=== PATIENT | male | born 1950 | race Caucasian/White ===

== ENCOUNTER 2018-02-15 14:40 | Inpatient (IN) | payer MEDICARE, MEDICAID ==
[~2018-02-15] VITALS: Ht 167.6 cm; Wt 107.0 kg
[~2018-02-15 14:40] MED LIST: HYDR25TA PO; LISI-661 PO; QUET100T PO; QUET200T PO
[2018-02-15 14:59] LABS: GLUCOSE,POINT OF CARE 145 MG/DL (70-110)
[2018-02-15 15:09] LABS: BASOPHILS % (AUTO) 0.5 % (0.0-2.0); EOSINOPHILS % (AUTO) 1.1 % (1.0-6.0); HEMATOCRIT 44.2 % (41-53); HEMOGLOBIN 15.1 g/dL (13.5-17.5); LYMPHOCYTES # (AUTO) 3.1 K/uL (1.0-4.8); LYMPHOCYTES % (AUTO) 53.4 % (22.0-44.0); MEAN CORPUSCULAR HEMOGLOBIN 28.2 pg (26.0-34.0); MEAN CORPUSCULAR HGB CONC 34.1 G/dL (31.0-37.0); MEAN CORPUSCULAR VOLUME 83 fL (80-100); MONOCYTES # (AUTO) 0.5 K/uL (0.1-1.0); MONOCYTES % (AUTO) 8.2 % (2.0-9.0); NEUTROPHILS # (AUTO) 2.1 K/uL (1.8-7.7); NEUTROPHILS % (AUTO) 36.8 % (40.0-70.0); PLATELET COUNT (AUTO) 228 K/uL (150-450); RED BLOOD CELL COUNT(AUTO) 5.35 MIL/uL (4.50-5.90); RED CELL DISTRIBUTION WIDTH 14.5 % (11.5-14.5)
[2018-02-15 15:21] LABS: ANION GAP 11 mmol/L (8-16); CALCIUM, TOTAL 7.9 mg/dL (8.8-10.5); CARBON DIOXIDE 27 mmol/L (22-29); CHLORIDE 102 mmol/L (98-107); CREATININE 1.04 mg/dL (0.60-1.30); GLOMERULAR FILTR. RATE CALC > 60 mL/min (>60); GLUCOSE,RANDOM 152 mg/dL (70-110); POTASSIUM 3.9 mmol/L (3.5-5.1); SODIUM SERUM 140 mmol/L (136-145); UREA NITROGEN, BLOOD 11 mg/dL (7-18)
[2018-02-15 15:28] LABS: ALANINE AMINOTRANSFERASE 53 U/L (12-78); ALBUMIN 3.7 g/dL (3.4-5.0); ALKALINE PHOSPHATASE 107 U/L (46-116); ASPARTATE AMINOTRANSFERASE 52 U/L (15-37); BILIRUBIN,TOTAL 0.3 mg/dL (0.1-1.0); TOTAL PROTEIN, SERUM 7.4 g/dL (6.4-8.2)
[2018-02-15 17:26] LABS: AMPHET/METH SCREEN,URINE NEGATIVE (NEGATIVE); BARBITURATE SCREEN, URINE NEGATIVE (NEGATIVE); BENZODIAZEPINES SCREEN,URINE NEGATIVE (NEGATIVE); CANNABINOID SCREEN,URINE NEGATIVE (NEGATIVE); COCAINE SCREEN,URINE NEGATIVE (NEGATIVE); METHADONE SCREEN, URINE NEGATIVE (NEGATIVE); OPIATE SCREEN,URINE NEGATIVE (NEGATIVE)
[2018-02-15 17:27] LABS: PHENCYCLIDINE SCREEN,URINE NEGATIVE (NEGATIVE)
[2018-02-15] MEDS ORDERED: LORazepam 2 MG TABLET PO PRN (18:30)
[2018-02-15] MEDS ORDERED: CYANOCOBALAMIN 1,000 MCG/ML VIAL IM ONE (18:30)
[2018-02-15] MEDS ORDERED: ZOLPIDEM TARTRATE 5 MG TABLET PO PRN (18:30)
[2018-02-15] MEDS ORDERED: LOPERAMIDE HCL 2 MG CAPSULE PO PRN (18:30)
[2018-02-15] MEDS ORDERED: HydrOXYzine PAMOATE 50 MG CAPSULE PO PRN (18:30)
[2018-02-15] MEDS ORDERED: GuaiFENesin/D-METHORPHAN [SUGAR-FREE] 200-20MG/10 ML SYRUP UDCUP PO PRN (18:30)
[2018-02-15] MEDS ORDERED: QUEtiapine FUMARATE 100 MG TABLET PO PRN (18:30)
[2018-02-15] MEDS ORDERED: DIAZEPAM 10 MG TABLET PO PRN (18:30)
[2018-02-15 21:00] VITALS: BP 153/89
[2018-02-15] MEDS: QUEtiapine FUMARATE 200 MG TABLET PO SCH (21:19)
[2018-02-15] MEDS: THIAMINE HCL 100 MG TABLET PO SCH (21:19)
[2018-02-15 22:00] VITALS: BP 153/89
[2018-02-15] MEDS ORDERED: -PHARMACY VACCINE NOTE- MISC ONE (22:00)
[2018-02-15] MEDS ORDERED: PNEUMOCOCCAL VACCINE POLYVALENT 0.5 ML VIAL [PPSV23] IM ONE (22:00)
[2018-02-15 23:08] VITALS: BP 149/71
[2018-02-16] VITALS (16 sets, daily range): BP systolic 139–183; BP diastolic 52–96
[2018-02-16] MEDS: CloNIDine HCL 0.1 MG TABLET PO PRN ×3 (00:26→18:04)
[2018-02-16] MEDS ORDERED: DIAZEPAM 10 MG TABLET PO PRN (07:00)
[2018-02-16] MEDS ORDERED: ACETAMINOPHEN 325 MG TABLET PO PRN ×2 (07:45→10:15)
[2018-02-16] MEDS ORDERED: IBUPROFEN 600 MG TABLET PO PRN (07:45)
[2018-02-16] MEDS: THIAMINE HCL 100 MG TABLET PO SCH ×2 (08:44→16:38)
[2018-02-16 08:58] LABS: CHOL/HDL RATIO 4.1 (4.2-7.3); CHOLESTEROL 213 mg/dL (131-200); FREE T4 (FREE THYROXINE) 0.59 ng/dL (0.76-1.46); HDL CHOLESTEROL 52 mg/dL (40-60); THYROID STIMULATING HORMONE 4.05 uIU/mL (0.36-3.74); TRIGLYCERIDES 542 mg/dL (15-150)
[2018-02-16] MEDS ORDERED: FOLIC ACID 1 MG TABLET PO SCH (09:00)
[2018-02-16] MEDS ORDERED: DIAZEPAM 10 MG TABLET PO SCH (09:00)
[2018-02-16] MEDS ORDERED: MULTIVITAMINS WITH MINERALS, THERAPEUTIC TABLET PO SCH (09:00)
[2018-02-16] MEDS ORDERED: LISINOPRIL 10 MG TABLET PO SCH (09:45)
[2018-02-16] MEDS ORDERED: GuaiFENesin/D-METHORPHAN [SUGAR-FREE] 200-20MG/10 ML SYRUP UDCUP PO PRN (10:15)
[2018-02-16] MEDS ORDERED: HydrOXYzine PAMOATE 50 MG CAPSULE PO PRN (10:15)
[2018-02-16] MEDS ORDERED: TUBERCULIN, PURIFIED PROTEIN DERIVATIVE 5 TU/0.1 ML SYG ID ONE (10:15)
[2018-02-16] MEDS ORDERED: MAG HYDROX/AL HYDROX/SIMETH ES 30 ML SUSPENSION UDCUP PO PRN (10:15)
[2018-02-16] MEDS ORDERED: MAGNESIUM HYDROXIDE SUSPENSION 30 ML UDCUP PO PRN (10:15)
[2018-02-16] MEDS ORDERED: LORazepam 2 MG TABLET PO PRN (10:15)
[2018-02-16] MEDS ORDERED: PROMETHAZINE HCL 25 MG TABLET PO PRN (10:15)
[2018-02-16] MEDS ORDERED: LOPERAMIDE HCL 2 MG CAPSULE PO PRN (10:15)
[2018-02-16] MEDS: HYDROCHLOROTHIAZIDE 25 MG TABLET PO SCH (14:08)
[2018-02-16] MEDS ORDERED: AmLODIPine BESYLATE 5 MG TABLET PO SCH (19:45)
[2018-02-16] MEDS: ATORVASTATIN CALCIUM 40 MG TABLET PO SCH (20:37)
[2018-02-16] MEDS: QUEtiapine FUMARATE 200 MG TABLET PO SCH (20:37)
[2018-02-16] MEDS ORDERED: CYANOCOBALAMIN 1,000 MCG/ML VIAL IM ONE (21:00)
[2018-02-16] MEDS ORDERED: CloNIDine HCL 0.1 MG TABLET PO PRN (22:30)
[2018-02-17 00:11] VITALS: BP 161/93
[2018-02-17 01:23] VITALS: BP 138/79
[2018-02-17] MEDS ORDERED: LORazepam 2 MG TABLET PO PRN (07:00)
[2018-02-17] MEDS: AmLODIPine BESYLATE 10 MG TABLET PO SCH (08:18)
[2018-02-17] MEDS: THIAMINE HCL 100 MG TABLET PO SCH ×2 (08:18→16:37)
[2018-02-17] MEDS: NALTREXONE HCL 50 MG TABLET PO SCH (08:18)
[2018-02-17] MEDS: HYDROCHLOROTHIAZIDE 25 MG TABLET PO SCH (08:18)
[2018-02-17] MEDS: FOLIC ACID 1 MG TABLET PO SCH (08:18)
[2018-02-17] MEDS: MULTIVITAMINS WITH MINERALS, THERAPEUTIC TABLET PO SCH (08:19)
[2018-02-17] MEDS: LORazepam 2 MG TABLET PO SCH ×4 (08:19→20:40)
[2018-02-17] MEDS: LISINOPRIL 20 MG TABLET PO SCH (08:19)
[2018-02-17 08:38] VITALS: BP 146/79
[2018-02-17] MEDS ORDERED: FOLIC ACID 1 MG TABLET PO SCH (09:00)
[2018-02-17] MEDS: DENTURE ADHESIVE 68 GM CREAM DT PRN (09:58)
[2018-02-17 16:07] VITALS: BP 148/67
[2018-02-17 17:11] VITALS: BP 148/67
[2018-02-17] MEDS: QUEtiapine FUMARATE 300 MG TABLET PO SCH (20:39)
[2018-02-17] MEDS: ATORVASTATIN CALCIUM 40 MG TABLET PO SCH (20:40)
[2018-02-18 00:35] VITALS: BP 124/79
[2018-02-18] MEDS ORDERED: DIAZEPAM 5 MG TABLET PO PRN (07:00)
[2018-02-18] MEDS: HYDROCHLOROTHIAZIDE 25 MG TABLET PO SCH (08:21)
[2018-02-18] MEDS: THIAMINE HCL 100 MG TABLET PO SCH ×2 (08:21→16:43)
[2018-02-18] MEDS: FOLIC ACID 1 MG TABLET PO SCH (08:21)
[2018-02-18] MEDS: AmLODIPine BESYLATE 10 MG TABLET PO SCH (08:21)
[2018-02-18] MEDS: LISINOPRIL 20 MG TABLET PO SCH (08:21)
[2018-02-18] MEDS: LORazepam 2 MG TABLET PO SCH ×4 (08:21→20:39)
[2018-02-18] MEDS: MULTIVITAMINS WITH MINERALS, THERAPEUTIC TABLET PO SCH (08:21)
[2018-02-18] MEDS: NALTREXONE HCL 50 MG TABLET PO SCH (08:21)
[2018-02-18] MEDS: DENTURE ADHESIVE 68 GM CREAM DT PRN (08:25)
[2018-02-18 08:40] VITALS: BP 131/76
[2018-02-18] MEDS ORDERED: DIAZEPAM 5 MG TABLET PO SCH (09:00)
[2018-02-18] MEDS ORDERED: NALT50TA PO (12:03)
[2018-02-18] MEDS ORDERED: QUET300T18 PO (12:03)
[2018-02-18 16:28] VITALS: BP 118/64
[2018-02-18] MEDS: ATORVASTATIN CALCIUM 40 MG TABLET PO SCH (20:39)
[2018-02-18] MEDS: QUEtiapine FUMARATE 300 MG TABLET PO SCH (20:40)
[2018-02-18] MEDS ORDERED: AMLO-512 PO (21:30)
[2018-02-18] MEDS ORDERED: QUET50TA PO (21:31)
[2018-02-18] MEDS ORDERED: ATOR40TA28 PO (21:31)
[2018-02-19 06:10] VITALS: BP 140/71
[2018-02-19] MEDS ORDERED: LORazepam 1 MG TABLET PO PRN (07:00)
[2018-02-19] MEDS ORDERED: DIAZEPAM 5 MG TABLET PO PRN (07:00)
[2018-02-19 08:15] VITALS: BP 140/83
[2018-02-19] MEDS: FOLIC ACID 1 MG TABLET PO SCH (08:27)
[2018-02-19] MEDS: MULTIVITAMINS WITH MINERALS, THERAPEUTIC TABLET PO SCH (08:27)
[2018-02-19] MEDS: LISINOPRIL 20 MG TABLET PO SCH (08:27)
[2018-02-19] MEDS: NALTREXONE HCL 50 MG TABLET PO SCH (08:28)
[2018-02-19] MEDS: THIAMINE HCL 100 MG TABLET PO SCH (08:28)
[2018-02-19] MEDS: HYDROCHLOROTHIAZIDE 25 MG TABLET PO SCH (08:28)
[2018-02-19] MEDS: AmLODIPine BESYLATE 10 MG TABLET PO SCH (08:28)
[2018-02-19 08:56] LABS: HEMOGLOBIN A1C 6.4 % (4.5-6.2)
[2018-02-19] MEDS ORDERED: LORazepam 1 MG TABLET PO SCH (09:00)
[2018-02-19 09:35] LABS: FOLATE SERUM 17.8 ng/mL (5.4-)
[2018-02-19 09:47] LABS: CREATINE KINASE MB 2.2 ng/mL (0-5); CREATINE KINASE, TOTAL 94 U/L (39-308); FREE T4 (FREE THYROXINE) 0.73 ng/dL (0.76-1.46); THYROID STIMULATING HORMONE 5.92 uIU/mL (0.36-3.74)
[2018-02-19] MEDS ORDERED: NALT50TA6 PO (11:40)
[2018-02-20] MEDS ORDERED: LORazepam 1 MG TABLET PO PRN (07:00)
== END 2018-02-19 13:25 | disposition home or self-care (01) | DRG 885 ==
LOC: EMS 14:41 → B2X 19:30
PROVIDERS: ADMIT Psychiatry & Neurology Psychiatry; ATTEND Psychiatry & Neurology Psychiatry
PROC: 3E0234Z Introduction of Serum, Toxoid and Vaccine into Muscle, Percutaneous Approach (ICD-10-PCS; principal; 2018-02-16)
DX: F25.9 Schizoaffective disorder, unspecified (principal); R45.851 Suicidal ideations; I10 Essential (primary) hypertension; E78.5 Hyperlipidemia, unspecified; E03.9 Hypothyroidism, unspecified; E83.51 Hypocalcemia; F32.9 Major depressive disorder, single episode, unspecified; F10.20 Alcohol dependence, uncomplicated; Y90.9 Presence of alcohol in blood, level not specified; E78.1 Pure hyperglyceridemia; F17.210 Nicotine dependence, cigarettes, uncomplicated; E66.01 Morbid (severe) obesity due to excess calories; Z68.38 Body mass index [BMI] 38.0-38.9, adult; Z23 Encounter for immunization; Z81.1 Family history of alcohol abuse and dependence; Z79.899 Other long term (current) drug therapy; Z91.19 Patient's noncompliance with other medical treatment and regimen; Z82.49 Family history of ischemic heart disease and other diseases of the circulatory system; Z83.3 Family history of diabetes mellitus; Z59.0 Homelessness
CPT/HCPCS: 80074; 82306; 82607; 82746; 83036; 83735; 84439; 84443; 90471; 93005; 96372; 99285; G0480; J3420

== ENCOUNTER 2018-06-13 12:15 | Inpatient (IN) | payer MEDICARE, MEDICAID ==
[~2018-06-13] VITALS: Ht 170.2 cm; Wt 106.6 kg
[~2018-06-13 12:15] MED LIST changes: +AMLO-512 PO; +ATOR40TA28 PO; +NALT50TA PO; +NALT50TA6 PO; -QUET100T PO; -QUET200T PO; +QUET300T18 PO; +QUET50TA PO
[2018-06-13 12:39] LABS: GLUCOSE,POINT OF CARE 220 MG/DL (70-110)
[2018-06-13] MEDS ORDERED: ESCI20TA PO (12:53)
[2018-06-13] MEDS ORDERED: METF-960 PO (12:53)
[2018-06-13] MEDS ORDERED: ASPI81 PO (12:53)
[2018-06-13] MEDS ORDERED: LISI-662 PO (12:54)
[2018-06-13] MEDS ORDERED: QUET300T2 PO (12:55)
[2018-06-13 13:05] LABS: BASOPHILS % (AUTO) 0.3 % (0.0-2.0); EOSINOPHILS % (AUTO) 1.7 % (1.0-6.0); HEMOGLOBIN 14.4 g/dL (13.5-17.5); LYMPHOCYTES # (AUTO) 2.3 K/uL (1.0-4.8); LYMPHOCYTES % (AUTO) 41.8 % (22.0-44.0); MEAN CORPUSCULAR HEMOGLOBIN 27.4 pg (26.0-34.0); MEAN CORPUSCULAR HGB CONC 34.2 G/dL (31.0-37.0); MEAN CORPUSCULAR VOLUME 80 fL (80-100); MONOCYTES # (AUTO) 0.6 K/uL (0.1-1.0); MONOCYTES % (AUTO) 9.9 % (2.0-9.0); NEUTROPHILS # (AUTO) 2.6 K/uL (1.8-7.7); NEUTROPHILS % (AUTO) 46.3 % (40.0-70.0); PLATELET COUNT (AUTO) 194 K/uL (150-450); RED BLOOD CELL COUNT(AUTO) 5.25 MIL/uL (4.50-5.90); RED CELL DISTRIBUTION WIDTH 14.7 % (11.5-14.5)
[2018-06-13 13:10] LABS: ANION GAP 6 mmol/L (8-16); CALCIUM, TOTAL 8.3 mg/dL (8.8-10.5); CARBON DIOXIDE 32 mmol/L (22-29); CHLORIDE 99 mmol/L (98-107); CREATININE 0.69 mg/dL (0.60-1.30); GLOMERULAR FILTR. RATE CALC > 60 mL/min (>60); GLUCOSE,RANDOM 207 mg/dL (70-110); POTASSIUM 3.5 mmol/L (3.5-5.1); SODIUM SERUM 137 mmol/L (136-145); UREA NITROGEN, BLOOD 8 mg/dL (7-18)
[2018-06-13 13:16] LABS: ACETAMINOPHEN < 2 mcg/mL (10-30); ALANINE AMINOTRANSFERASE 39 U/L (12-78); ALBUMIN 3.7 g/dL (3.4-5.0); ALKALINE PHOSPHATASE 106 U/L (46-116); ASPARTATE AMINOTRANSFERASE 29 U/L (15-37); BILIRUBIN,TOTAL 0.3 mg/dL (0.1-1.0); SALICYLATE 1.9 mg/dL (2.8-20.0); TOTAL PROTEIN, SERUM 7.2 g/dL (6.4-8.2)
[2018-06-13 13:19] LABS: AMPHET/METH SCREEN,URINE NEGATIVE (NEGATIVE); BARBITURATE SCREEN, URINE NEGATIVE (NEGATIVE); BENZODIAZEPINES SCREEN,URINE NEGATIVE (NEGATIVE); CANNABINOID SCREEN,URINE NEGATIVE (NEGATIVE); COCAINE SCREEN,URINE NEGATIVE (NEGATIVE); METHADONE SCREEN, URINE NEGATIVE (NEGATIVE); OPIATE SCREEN,URINE NEGATIVE (NEGATIVE)
[2018-06-13 13:20] LABS: PHENCYCLIDINE SCREEN,URINE NEGATIVE (NEGATIVE)
[2018-06-13] MEDS ORDERED: SODIUM CHLORIDE 0.9% 1,000 ML IV ONE (14:15)
[2018-06-13] MEDS ORDERED: HydrALAZINE HCL 20 MG/ML VIAL IVP ONE ×2 (18:30→19:45)
[2018-06-13] MEDS ORDERED: ZOLPIDEM TARTRATE 10 MG TABLET PO PRN (19:45)
[2018-06-13] MEDS ORDERED: LORazepam 2 MG TABLET PO PRN (19:45)
[2018-06-13] MEDS ORDERED: HALOPERIDOL 5 MG TABLET PO PRN (19:45)
[2018-06-13] MEDS ORDERED: CYANOCOBALAMIN 1,000 MCG/ML VIAL IM ONE (19:45)
[2018-06-13 20:47] LABS: APPEARANCE,URINE CLEAR (CLEAR); BILIRUBIN,URINE NEGATIVE (NEGATIVE); GLUCOSE, URINE (UA) NEGATIVE (NEGATIVE); KETONES,URINE NEGATIVE (NEGATIVE); LEUKOCYTE ESTERASE ,URINE NEGATIVE (NEGATIVE); NITRATE,URINE NEGATIVE (NEGATIVE); OCCULT BLOOD,URINE NEGATIVE (NEGATIVE); PH,URINE 6.5 (5.0-8.0); PROTEIN,URINE NEGATIVE (NEGATIVE); UROBILINOGEN,URINE 0.2 mg/dL (<=1.0)
[2018-06-13 21:00] VITALS: BP 128/61
[2018-06-13] MEDS: THIAMINE HCL 100 MG TABLET PO SCH (21:57)
[2018-06-13 22:00] VITALS: BP 135/72
[2018-06-13] MEDS ORDERED: MAG HYDROX/AL HYDROX/SIMETH ES 30 ML SUSPENSION UDCUP PO PRN (22:15)
[2018-06-13] MEDS ORDERED: PETROLATUM,WHITE 71 GM JELLY TP PRN (22:15)
[2018-06-13] MEDS ORDERED: CloNIDine HCL 0.1 MG TABLET PO PRN (22:15)
[2018-06-13] MEDS ORDERED: IBUPROFEN 400 MG TABLET PO PRN (22:15)
[2018-06-13] MEDS ORDERED: NICOTINE 14 MG/24 HOUR PATCH TD PRN (22:15)
[2018-06-13] MEDS ORDERED: DOCUSATE SODIUM 100 MG CAPSULE PO PRN (22:15)
[2018-06-13] MEDS ORDERED: MAGNESIUM HYDROXIDE SUSPENSION 30 ML UDCUP PO PRN (22:15)
[2018-06-13] MEDS ORDERED: ACETAMINOPHEN 325 MG TABLET PO PRN (22:15)
[2018-06-13] MEDS ORDERED: ONDANSETRON HCL 4 MG TABLET PO PRN (22:15)
[2018-06-13] MEDS ORDERED: GuaiFENesin/D-METHORPHAN [SUGAR-FREE] 200-20MG/10 ML SYRUP UDCUP PO PRN (22:15)
[2018-06-13] MEDS ORDERED: LOPERAMIDE HCL 2 MG CAPSULE PO PRN (22:15)
[2018-06-13] MEDS ORDERED: ALBUTEROL SULFATE HFA 90 MCG/PUFF 8 GM INHALER IH PRN (22:15)
[2018-06-13] MEDS: QUEtiapine FUMARATE 300 MG TABLET PO SCH (22:58)
[2018-06-13 23:00] VITALS: BP 146/72
[2018-06-14] VITALS (7 sets, daily range): BP systolic 142–164; BP diastolic 81–98
[2018-06-14 05:45] LABS: GLUCOMETER DEV NAME(LOC) 3EX.; GLUCOSE,POINT OF CARE 132 MG/DL (70-110)
[2018-06-14 06:47] LABS: BASOPHILS % (AUTO) 0.5 % (0.0-2.0); EOSINOPHILS % (AUTO) 2.5 % (1.0-6.0); HEMATOCRIT 41.5 % (41-53); HEMOGLOBIN 14.4 g/dL (13.5-17.5); LYMPHOCYTES % (AUTO) 37.7 % (22.0-44.0); MEAN CORPUSCULAR HEMOGLOBIN 27.6 pg (26.0-34.0); MEAN CORPUSCULAR HGB CONC 34.6 G/dL (31.0-37.0); MEAN CORPUSCULAR VOLUME 80 fL (80-100); MONOCYTES # (AUTO) 0.5 K/uL (0.1-1.0); MONOCYTES % (AUTO) 9.2 % (2.0-9.0); NEUTROPHILS # (AUTO) 2.6 K/uL (1.8-7.7); NEUTROPHILS % (AUTO) 50.1 % (40.0-70.0); PLATELET COUNT (AUTO) 198 K/uL (150-450); RED BLOOD CELL COUNT(AUTO) 5.22 MIL/uL (4.50-5.90)
[2018-06-14] MEDS ORDERED: LORazepam 2 MG TABLET PO PRN (07:00)
[2018-06-14 07:02] LABS: HEMOGLOBIN A1C 6.9 % (4.5-6.2)
[2018-06-14 07:12] LABS: ALANINE AMINOTRANSFERASE 33 U/L (12-78); ALBUMIN 3.5 g/dL (3.4-5.0); ALKALINE PHOSPHATASE 91 U/L (46-116); ANION GAP 8 mmol/L (8-16); ASPARTATE AMINOTRANSFERASE 24 U/L (15-37); BILIRUBIN,TOTAL 0.5 mg/dL (0.1-1.0); CALCIUM, TOTAL 8.3 mg/dL (8.8-10.5); CARBON DIOXIDE 29 mmol/L (22-29); CHLORIDE 101 mmol/L (98-107); CHOL/HDL RATIO 3.2 (4.2-7.3); CHOLESTEROL 212 mg/dL (131-200); CREATININE 0.76 mg/dL (0.60-1.30); GLOMERULAR FILTR. RATE CALC > 60 mL/min (>60); GLUCOSE,RANDOM 123 mg/dL (70-110); HDL CHOLESTEROL 67 mg/dL (40-60); POTASSIUM 3.9 mmol/L (3.5-5.1); SODIUM SERUM 138 mmol/L (136-145); TOTAL PROTEIN, SERUM 6.8 g/dL (6.4-8.2); TRIGLYCERIDES 401 mg/dL (15-150); UREA NITROGEN, BLOOD 11 mg/dL (7-18)
[2018-06-14] MEDS ORDERED: MetFORMIN HCL 500 MG TABLET PO SCH (07:30)
[2018-06-14] MEDS: THIAMINE HCL 100 MG TABLET PO SCH ×2 (08:39→16:04)
[2018-06-14] MEDS: FOLIC ACID 1 MG TABLET PO SCH (08:39)
[2018-06-14] MEDS: LORazepam 2 MG TABLET PO SCH ×4 (08:40→20:14)
[2018-06-14] MEDS: MULTIVITAMINS WITH MINERALS, THERAPEUTIC TABLET PO SCH (08:40)
[2018-06-14] MEDS ORDERED: ASPIRIN 81 MG CHEWABLE TABLET PO SCH (09:00)
[2018-06-14] MEDS ORDERED: LISINOPRIL 20 MG TABLET PO SCH (09:00)
[2018-06-14] MEDS: MetFORMIN HCL 500 MG TABLET PO SCH (16:05)
[2018-06-14 17:00] LABS: FREE T4 (FREE THYROXINE) 0.66 ng/dL (0.76-1.46)
[2018-06-14 19:29] LABS: GLUCOMETER DEV NAME(LOC) 3E.I; GLUCOSE,POINT OF CARE 179 MG/DL (70-110)
[2018-06-14] MEDS: QUEtiapine FUMARATE 300 MG TABLET PO SCH (20:13)
[2018-06-14] MEDS: ATORVASTATIN CALCIUM 40 MG TABLET PO SCH (20:13)
[2018-06-14] MEDS ORDERED: ATORVASTATIN CALCIUM 40 MG TABLET PO SCH (21:00)
[2018-06-15 06:04] LABS: GLUCOMETER DEV NAME(LOC) 3EX.; GLUCOSE,POINT OF CARE 137 MG/DL (70-110)
[2018-06-15] MEDS: MetFORMIN HCL 500 MG TABLET PO SCH ×2 (06:25→16:30)
[2018-06-15 08:10] VITALS: BP 151/92
[2018-06-15] MEDS: THIAMINE HCL 100 MG TABLET PO SCH ×2 (08:48→16:30)
[2018-06-15] MEDS: FOLIC ACID 1 MG TABLET PO SCH (08:48)
[2018-06-15] MEDS: MULTIVITAMINS WITH MINERALS, THERAPEUTIC TABLET PO SCH (08:50)
[2018-06-15] MEDS: ASPIRIN 81 MG CHEWABLE TABLET PO SCH (08:50)
[2018-06-15] MEDS: LORazepam 2 MG TABLET PO SCH ×4 (08:50→20:32)
[2018-06-15] MEDS: LISINOPRIL 20 MG TABLET PO SCH (08:51)
[2018-06-15 12:30] VITALS: BP 149/96
[2018-06-15 15:01] VITALS: BP 138/81
[2018-06-15 17:04] LABS: GLUCOMETER DEV NAME(LOC) 3E.I; GLUCOSE,POINT OF CARE 193 MG/DL (70-110)
[2018-06-15 17:14] VITALS: BP 161/92
[2018-06-15 17:15] VITALS: BP 161/92
[2018-06-15] MEDS: QUEtiapine FUMARATE 300 MG TABLET PO SCH (20:32)
[2018-06-15] MEDS: ATORVASTATIN CALCIUM 40 MG TABLET PO SCH (20:32)
[2018-06-15 21:14] VITALS: BP 147/89
[2018-06-16 06:05] LABS: GLUCOMETER DEV NAME(LOC) 3EX.; GLUCOSE,POINT OF CARE 155 MG/DL (70-110)
[2018-06-16] MEDS ORDERED: LORazepam 1 MG TABLET PO PRN (07:00)
[2018-06-16] MEDS: MetFORMIN HCL 500 MG TABLET PO SCH ×2 (07:03→16:27)
[2018-06-16] MEDS: THIAMINE HCL 100 MG TABLET PO SCH ×2 (08:33→16:27)
[2018-06-16] MEDS: FOLIC ACID 1 MG TABLET PO SCH (08:33)
[2018-06-16] MEDS: LISINOPRIL 20 MG TABLET PO SCH (08:35)
[2018-06-16] MEDS: MULTIVITAMINS WITH MINERALS, THERAPEUTIC TABLET PO SCH (08:35)
[2018-06-16] MEDS: ASPIRIN 81 MG CHEWABLE TABLET PO SCH (08:35)
[2018-06-16] MEDS: LORazepam 1 MG TABLET PO SCH ×3 (08:36→20:08)
[2018-06-16 11:29] VITALS: BP 142/76
[2018-06-16 17:09] LABS: GLUCOMETER DEV NAME(LOC) 3E.I; GLUCOSE,POINT OF CARE 152 MG/DL (70-110)
[2018-06-16 17:15] VITALS: BP 176/91
[2018-06-16] MEDS: ATORVASTATIN CALCIUM 40 MG TABLET PO SCH (20:08)
[2018-06-16] MEDS: QUEtiapine FUMARATE 300 MG TABLET PO SCH (20:08)
[2018-06-17 05:37] VITALS: BP 144/84
[2018-06-17 06:04] LABS: GLUCOMETER DEV NAME(LOC) 3EX.; GLUCOSE,POINT OF CARE 234 MG/DL (70-110)
[2018-06-17] MEDS: MetFORMIN HCL 500 MG TABLET PO SCH (07:00)
[2018-06-17] MEDS ORDERED: LORazepam 1 MG TABLET PO PRN (07:00)
[2018-06-17] MEDS: LISINOPRIL 20 MG TABLET PO SCH (08:23)
[2018-06-17] MEDS: FOLIC ACID 1 MG TABLET PO SCH (08:23)
[2018-06-17] MEDS: THIAMINE HCL 100 MG TABLET PO SCH (08:23)
[2018-06-17] MEDS: MULTIVITAMINS WITH MINERALS, THERAPEUTIC TABLET PO SCH (08:23)
[2018-06-17] MEDS: ASPIRIN 81 MG CHEWABLE TABLET PO SCH (08:24)
[2018-06-17 11:27] VITALS: BP 159/90
[2018-06-17 11:30] VITALS: BP 159/90
[2018-06-17] MEDS ORDERED: MULT-1239 PO (15:57)
[2018-06-17] MEDS ORDERED: FOLI1 PO (15:57)
[2018-06-17] MEDS ORDERED: THIA100T67 PO (15:57)
== END 2018-06-17 17:45 | disposition home or self-care (01) | DRG 885 ==
LOC: EMS 12:16 → 3EX 20:00
PROVIDERS: ADMIT Psychiatry & Neurology Psychiatry; ATTEND Psychiatry & Neurology Psychiatry
DX: F25.1 Schizoaffective disorder, depressive type (principal); E11.9 Type 2 diabetes mellitus without complications; E78.5 Hyperlipidemia, unspecified; F10.10 Alcohol abuse, uncomplicated; I10 Essential (primary) hypertension; Z79.82 Long term (current) use of aspirin; Z79.84 Long term (current) use of oral hypoglycemic drugs; Z79.899 Other long term (current) drug therapy; Z82.49 Family history of ischemic heart disease and other diseases of the circulatory system; Z83.3 Family history of diabetes mellitus
CPT/HCPCS: 82948; 83036; 83735; 84439; 84443; 93005; 96372; 96374; 96376; G0378; G0480; G0481; J0360; J3420; J7030

== ENCOUNTER 2018-12-27 14:23 | Inpatient (IN) | payer MEDICARE, MEDICAID ==
[~2018-12-27] VITALS: Ht 167.6 cm; Wt 110.5 kg
[2018-12-27] VITALS (8 sets, daily range): BP systolic 133–159; BP diastolic 75–95
[~2018-12-27 14:23] MED LIST changes: -AMLO-512 PO; +ASPI81 PO; +FOLI1 PO; -HYDR25TA PO; -LISI-661 PO; +LISI-662 PO; +METF-960 PO; +MULT-1239 PO; -NALT50TA PO; -NALT50TA6 PO; -QUET300T18 PO; +QUET300T2 PO; -QUET50TA PO; +THIA100T67 PO
[2018-12-27] MEDS ORDERED: LOPERAMIDE HCL 2 MG CAPSULE PO PRN (14:45)
[2018-12-27] MEDS ORDERED: HydrOXYzine PAMOATE 50 MG CAPSULE PO PRN (14:45)
[2018-12-27] MEDS ORDERED: ZOLPIDEM TARTRATE 10 MG TABLET PO PRN ×2 (14:45)
[2018-12-27] MEDS ORDERED: LORazepam 2 MG TABLET PO PRN (14:45)
[2018-12-27] MEDS ORDERED: ACETAMINOPHEN 325 MG TABLET PO PRN (14:45)
[2018-12-27] MEDS ORDERED: GuaiFENesin/D-METHORPHAN [SUGAR-FREE] 200-20MG/10 ML SYRUP UDCUP PO PRN (14:45)
[2018-12-27] MEDS ORDERED: QUEtiapine FUMARATE 100 MG TABLET PO PRN ×2 (14:45)
[2018-12-27] MEDS ORDERED: MAG HYDROX/AL HYDROX/SIMETH ES 30 ML SUSPENSION UDCUP PO PRN (14:45)
[2018-12-27] MEDS ORDERED: CYANOCOBALAMIN 1,000 MCG/ML VIAL IM ONE (14:45)
[2018-12-27] MEDS ORDERED: MAGNESIUM HYDROXIDE SUSPENSION 30 ML UDCUP PO PRN (14:45)
[2018-12-27] MEDS: THIAMINE HCL 100 MG TABLET PO SCH (16:03)
[2018-12-27] MEDS ORDERED: GLUCAGON,HUMAN RECOMBINANT 1 MG VIAL IM PRN (16:30)
[2018-12-27] MEDS ORDERED: LORazepam 2 MG TABLET PO ONE (16:30)
[2018-12-27] MEDS: LISINOPRIL 20 MG TABLET PO SCH (16:41)
[2018-12-27] MEDS: MetFORMIN HCL 500 MG TABLET PO SCH (16:41)
[2018-12-27] MEDS: ASPIRIN 81 MG EC TABLET PO SCH (16:41)
[2018-12-27] MEDS: INSULIN LISPRO 100 UNITS/ML SQ PRN ×2 (16:44→20:05)
[2018-12-27] MEDS ORDERED: -PHARMACY VACCINE NOTE- MISC ONE (16:45)
[2018-12-27 16:55] LABS: GLUCOMETER DEV NAME(LOC) BV2S.; GLUCOSE,POINT OF CARE 244 MG/DL (70-110)
[2018-12-27] MEDS: QUEtiapine FUMARATE 100 MG TABLET PO SCH (20:05)
[2018-12-27] MEDS: ATORVASTATIN CALCIUM 40 MG TABLET PO SCH (20:05)
[2018-12-27 21:39] LABS: GLUCOMETER DEV NAME(LOC) BV2S.; GLUCOSE,POINT OF CARE 191 MG/DL (70-110)
[2018-12-28] VITALS (11 sets, daily range): BP systolic 129–149; BP diastolic 66–95
[2018-12-28 06:20] LABS: GLUCOMETER DEV NAME(LOC) BV2S.; GLUCOSE,POINT OF CARE 174 MG/DL (70-110)
[2018-12-28] MEDS: INSULIN LISPRO 100 UNITS/ML SQ PRN ×3 (06:43→20:54)
[2018-12-28] MEDS: DENTURE ADHESIVE 68 GM CREAM DT PRN (06:47)
[2018-12-28] MEDS: MetFORMIN HCL 500 MG TABLET PO SCH ×2 (06:48→16:20)
[2018-12-28] MEDS: LORazepam 2 MG TABLET PO PRN (07:06)
[2018-12-28 08:28] LABS: BASOPHILS % (AUTO) 0.4 % (0.0-2.0); EOSINOPHILS % (AUTO) 0.9 % (1.0-6.0); HEMATOCRIT 44.2 % (41-53); HEMOGLOBIN 14.7 g/dL (13.5-17.5); LYMPHOCYTES # (AUTO) 1.9 K/uL (1.0-4.8); LYMPHOCYTES % (AUTO) 34.3 % (22.0-44.0); MEAN CORPUSCULAR HEMOGLOBIN 26.5 pg (26.0-34.0); MEAN CORPUSCULAR HGB CONC 33.2 G/dL (31.0-37.0); MEAN CORPUSCULAR VOLUME 80 fL (80-100); MONOCYTES # (AUTO) 0.3 K/uL (0.1-1.0); NEUTROPHILS # (AUTO) 3.2 K/uL (1.8-7.7); NEUTROPHILS % (AUTO) 58.4 % (40.0-70.0); PLATELET COUNT (AUTO) 154 K/uL (150-450); RED BLOOD CELL COUNT(AUTO) 5.54 MIL/uL (4.50-5.90); RED CELL DISTRIBUTION WIDTH 14.9 % (11.5-14.5)
[2018-12-28 08:47] LABS: APPEARANCE,URINE CLEAR (CLEAR); BILIRUBIN,URINE NEGATIVE (NEGATIVE); GLUCOSE, URINE (UA) 500 mg/dL (NEGATIVE); KETONES,URINE NEGATIVE (NEGATIVE); LEUKOCYTE ESTERASE ,URINE NEGATIVE (NEGATIVE); NITRATE,URINE NEGATIVE (NEGATIVE); OCCULT BLOOD,URINE NEGATIVE (NEGATIVE); PH,URINE 5.5 (5.0-8.0); PROTEIN,URINE NEGATIVE (NEGATIVE); UROBILINOGEN,URINE 0.2 mg/dL (<=1.0)
[2018-12-28 08:50] LABS: HEMOGLOBIN A1C 8.1 % (4.5-6.2)
[2018-12-28] MEDS: FOLIC ACID 1 MG TABLET PO SCH (08:50)
[2018-12-28] MEDS: NALTREXONE HCL 50 MG TABLET PO SCH (08:50)
[2018-12-28] MEDS: LISINOPRIL 20 MG TABLET PO SCH (08:50)
[2018-12-28] MEDS: MULTIVITAMINS WITH MINERALS, THERAPEUTIC TABLET PO SCH (08:50)
[2018-12-28] MEDS: LORazepam 2 MG TABLET PO SCH ×4 (08:50→21:15)
[2018-12-28] MEDS: THIAMINE HCL 100 MG TABLET PO SCH ×2 (08:50→16:20)
[2018-12-28] MEDS: ASPIRIN 81 MG EC TABLET PO SCH (08:51)
[2018-12-28 08:53] LABS: AMPHET/METH SCREEN,URINE NEGATIVE (NEGATIVE); BARBITURATE SCREEN, URINE NEGATIVE (NEGATIVE); BENZODIAZEPINES SCREEN,URINE NEGATIVE (NEGATIVE); CANNABINOID SCREEN,URINE NEGATIVE (NEGATIVE); COCAINE SCREEN,URINE NEGATIVE (NEGATIVE); METHADONE SCREEN, URINE NEGATIVE (NEGATIVE); OPIATE SCREEN,URINE NEGATIVE (NEGATIVE)
[2018-12-28 08:54] LABS: PHENCYCLIDINE SCREEN,URINE NEGATIVE (NEGATIVE)
[2018-12-28 08:55] LABS: BACTERIA,URINE None Seen /HPF (None Seen); RBC,URINE None Seen /HPF (0-2); SQUAMOUS EPITHELIAL CELL,UR Rare /LPF (None Seen); WBC,URINE None Seen /HPF (0-5)
[2018-12-28 09:04] LABS: ALANINE AMINOTRANSFERASE 67 U/L (12-78); ALBUMIN 3.5 g/dL (3.4-5.0); ALKALINE PHOSPHATASE 117 U/L (46-116); ANION GAP 9 mmol/L (8-16); ASPARTATE AMINOTRANSFERASE 109 U/L (15-37); BILIRUBIN,TOTAL 0.7 mg/dL (0.1-1.0); CALCIUM, TOTAL 8.8 mg/dL (8.8-10.5); CARBON DIOXIDE 28 mmol/L (22-29); CHLORIDE 97 mmol/L (98-107); CHOL/HDL RATIO 5.3 (4.2-7.3); CHOLESTEROL 264 mg/dL (131-200); CREATININE 0.85 mg/dL (0.60-1.30); FREE T4 (FREE THYROXINE) 0.71 ng/dL (0.76-1.46); GLOMERULAR FILTR. RATE CALC > 60 mL/min (>60); GLUCOSE,RANDOM 143 mg/dL (70-110); HDL CHOLESTEROL 50 mg/dL (40-60); POTASSIUM 3.6 mmol/L (3.5-5.1); SODIUM SERUM 134 mmol/L (136-145); THYROID STIMULATING HORMONE 7.84 uIU/mL (0.36-3.74); TOTAL PROTEIN, SERUM 7.2 g/dL (6.4-8.2); TRIGLYCERIDES 673 mg/dL (15-150); UREA NITROGEN, BLOOD 15 mg/dL (7-18)
[2018-12-28 13:29] LABS: GLUCOMETER DEV NAME(LOC) BV2S.; GLUCOSE,POINT OF CARE 214 MG/DL (70-110)
[2018-12-28 17:30] LABS: GLUCOMETER DEV NAME(LOC) BV2S.; GLUCOSE,POINT OF CARE 280 MG/DL (70-110)
[2018-12-28 20:44] LABS: GLUCOMETER DEV NAME(LOC) BV2S.; GLUCOSE,POINT OF CARE 239 MG/DL (70-110)
[2018-12-28] MEDS: ATORVASTATIN CALCIUM 40 MG TABLET PO SCH (21:15)
[2018-12-28] MEDS: QUEtiapine FUMARATE 100 MG TABLET PO SCH (21:15)
[2018-12-29] VITALS (7 sets, daily range): BP systolic 144–161; BP diastolic 79–100
[2018-12-29 06:14] LABS: GLUCOMETER DEV NAME(LOC) BV2S.; GLUCOSE,POINT OF CARE 198 MG/DL (70-110)
[2018-12-29] MEDS: LEVOTHYROXINE SODIUM 25 MCG TABLET PO SCH (06:15)
[2018-12-29] MEDS: MetFORMIN HCL 500 MG TABLET PO SCH ×2 (06:15→16:52)
[2018-12-29] MEDS: INSULIN LISPRO 100 UNITS/ML SQ PRN ×4 (06:31→20:30)
[2018-12-29] MEDS: LISINOPRIL 20 MG TABLET PO SCH (08:47)
[2018-12-29] MEDS: ASPIRIN 81 MG EC TABLET PO SCH (08:47)
[2018-12-29] MEDS: MULTIVITAMINS WITH MINERALS, THERAPEUTIC TABLET PO SCH (08:47)
[2018-12-29] MEDS: LORazepam 2 MG TABLET PO SCH ×4 (08:48→20:22)
[2018-12-29] MEDS: FOLIC ACID 1 MG TABLET PO SCH (08:48)
[2018-12-29] MEDS: THIAMINE HCL 100 MG TABLET PO SCH ×2 (08:48→16:51)
[2018-12-29] MEDS: NALTREXONE HCL 50 MG TABLET PO SCH (08:48)
[2018-12-29 11:04] LABS: GLUCOMETER DEV NAME(LOC) BV2S.; GLUCOSE,POINT OF CARE 201 MG/DL (70-110)
[2018-12-29] MEDS: CloNIDine HCL 0.1 MG TABLET PO PRN (14:36)
[2018-12-29 16:44] LABS: GLUCOMETER DEV NAME(LOC) BV2S.; GLUCOSE,POINT OF CARE 175 MG/DL (70-110)
[2018-12-29] MEDS: DENTURE ADHESIVE 68 GM CREAM DT PRN (18:35)
[2018-12-29] MEDS: ATORVASTATIN CALCIUM 40 MG TABLET PO SCH (20:22)
[2018-12-29] MEDS ORDERED: QUEtiapine FUMARATE 100 MG TABLET PO SCH (21:00)
[2018-12-29 21:04] LABS: GLUCOMETER DEV NAME(LOC) BV2S.; GLUCOSE,POINT OF CARE 169 MG/DL (70-110)
[2018-12-30 01:26] VITALS: BP 152/87
[2018-12-30 01:28] VITALS: BP 152/78
[2018-12-30 04:17] VITALS: BP 128/81
[2018-12-30] MEDS: LORazepam 2 MG TABLET PO PRN (04:41)
[2018-12-30] MEDS: INSULIN LISPRO 100 UNITS/ML SQ PRN ×4 (06:35→21:00)
[2018-12-30 06:40] LABS: GLUCOMETER DEV NAME(LOC) BV2S.; GLUCOSE,POINT OF CARE 171 MG/DL (70-110)
[2018-12-30] MEDS ORDERED: LORazepam 1 MG TABLET PO PRN (07:00)
[2018-12-30] MEDS: LEVOTHYROXINE SODIUM 25 MCG TABLET PO SCH (07:01)
[2018-12-30] MEDS: MetFORMIN HCL 500 MG TABLET PO SCH ×2 (07:01→16:59)
[2018-12-30 08:11] VITALS: BP 131/65
[2018-12-30] MEDS: MULTIVITAMINS WITH MINERALS, THERAPEUTIC TABLET PO SCH (09:06)
[2018-12-30] MEDS: OMEGA-3/DHA/EPA/FISH OIL 1,000 MG CAPSULE PO SCH (09:06)
[2018-12-30] MEDS: LORazepam 1 MG TABLET PO SCH ×4 (09:06→20:44)
[2018-12-30] MEDS: FOLIC ACID 1 MG TABLET PO SCH (09:07)
[2018-12-30] MEDS: THIAMINE HCL 100 MG TABLET PO SCH ×2 (09:07→16:59)
[2018-12-30] MEDS: ASPIRIN 81 MG EC TABLET PO SCH (09:07)
[2018-12-30] MEDS: LISINOPRIL 20 MG TABLET PO SCH (09:07)
[2018-12-30] MEDS: NALTREXONE HCL 50 MG TABLET PO SCH (09:07)
[2018-12-30 10:59] LABS: GLUCOMETER DEV NAME(LOC) BV2S.; GLUCOSE,POINT OF CARE 158 MG/DL (70-110)
[2018-12-30] MEDS ORDERED: LOPERAMIDE HCL 2 MG CAPSULE PO PRN (14:45)
[2018-12-30] MEDS ORDERED: QUET100T33 PO (15:10)
[2018-12-30] MEDS ORDERED: NALT50TA PO (15:10)
[2018-12-30] MEDS ORDERED: OMEG-135 PO (15:10)
[2018-12-30 16:00] VITALS: BP 140/91
[2018-12-30 16:29] VITALS: BP 140/91
[2018-12-30 16:54] LABS: GLUCOMETER DEV NAME(LOC) BV2S.; GLUCOSE,POINT OF CARE 167 MG/DL (70-110)
[2018-12-30 20:39] LABS: GLUCOMETER DEV NAME(LOC) BV2S.; GLUCOSE,POINT OF CARE 169 MG/DL (70-110)
[2018-12-30] MEDS: ATORVASTATIN CALCIUM 40 MG TABLET PO SCH (20:44)
[2018-12-30] MEDS ORDERED: QUEtiapine FUMARATE 100 MG TABLET PO SCH (21:00)
[2018-12-31 05:33] VITALS: BP 139/76
[2018-12-31 05:45] VITALS: BP 139/76
[2018-12-31] MEDS: LEVOTHYROXINE SODIUM 25 MCG TABLET PO SCH (06:35)
[2018-12-31] MEDS: MetFORMIN HCL 500 MG TABLET PO SCH ×2 (06:35→17:07)
[2018-12-31] MEDS: INSULIN LISPRO 100 UNITS/ML SQ PRN ×3 (06:50→16:44)
[2018-12-31 07:00] LABS: GLUCOMETER DEV NAME(LOC) BV2S.; GLUCOSE,POINT OF CARE 172 MG/DL (70-110)
[2018-12-31] MEDS ORDERED: LORazepam 1 MG TABLET PO PRN (07:00)
[2018-12-31] MEDS ORDERED: LEVO25TA9 PO (08:10)
[2018-12-31] MEDS: OMEGA-3/DHA/EPA/FISH OIL 1,000 MG CAPSULE PO SCH (08:26)
[2018-12-31] MEDS: FOLIC ACID 1 MG TABLET PO SCH (08:26)
[2018-12-31] MEDS: NALTREXONE HCL 50 MG TABLET PO SCH (08:26)
[2018-12-31] MEDS: ASPIRIN 81 MG EC TABLET PO SCH (08:26)
[2018-12-31] MEDS: THIAMINE HCL 100 MG TABLET PO SCH ×2 (08:26→17:07)
[2018-12-31] MEDS: MULTIVITAMINS WITH MINERALS, THERAPEUTIC TABLET PO SCH (08:26)
[2018-12-31] MEDS: LISINOPRIL 20 MG TABLET PO SCH (08:26)
[2018-12-31 08:41] VITALS: BP 141/84
[2018-12-31 11:04] LABS: GLUCOMETER DEV NAME(LOC) BV2S.; GLUCOSE,POINT OF CARE 177 MG/DL (70-110)
[2018-12-31] MEDS: CloNIDine HCL 0.1 MG TABLET PO PRN (16:29)
[2018-12-31 16:54] LABS: GLUCOMETER DEV NAME(LOC) BV2S.; GLUCOSE,POINT OF CARE 215 MG/DL (70-110)
[2018-12-31 19:05] VITALS: BP 138/83
[2018-12-31 19:06] VITALS: BP 138/83
== END 2018-12-31 18:50 | disposition home or self-care (01) | DRG 885 ==
LOC: EDSTATUS 14:23
PROVIDERS: ADMIT Psychiatry & Neurology Psychiatry; ATTEND Psychiatry & Neurology Psychiatry
DX: F25.0 Schizoaffective disorder, bipolar type (principal); R45.851 Suicidal ideations; E87.1 Hypo-osmolality and hyponatremia; F15.21 Other stimulant dependence, in remission; F17.210 Nicotine dependence, cigarettes, uncomplicated; E03.9 Hypothyroidism, unspecified; E11.9 Type 2 diabetes mellitus without complications; I10 Essential (primary) hypertension; F41.9 Anxiety disorder, unspecified; E78.00 Pure hypercholesterolemia, unspecified; F10.20 Alcohol dependence, uncomplicated; Z60.9 Problem related to social environment, unspecified; E78.5 Hyperlipidemia, unspecified; Z59.0 Homelessness; Z65.3 Problems related to other legal circumstances; Z63.9 Problem related to primary support group, unspecified; Z91.19 Patient's noncompliance with other medical treatment and regimen; Z82.0 Family history of epilepsy and other diseases of the nervous system
CPT/HCPCS: 83036; 84439; 84443; 86592; J3420

== ENCOUNTER 2019-04-01 17:30 | Emergency (ER) | payer MEDICARE, OTHER ==
[~2019-04-01] VITALS: Ht 167.6 cm; Wt 64.0 kg
[~2019-04-01 17:30] MED LIST changes: -FOLI1 PO; +LEVO25TA9 PO; -MULT-1239 PO; +NALT50TA PO; +OMEG-135 PO; +QUET100T33 PO; -QUET300T2 PO; -THIA100T67 PO
[2019-04-01 18:56] LABS: BASOPHILS % (AUTO) 0.7 % (0.0-2.0); EOSINOPHILS % (AUTO) 0.1 % (1.0-6.0); HEMATOCRIT 44.7 % (41-53); HEMOGLOBIN 15.5 g/dL (13.5-17.5); LYMPHOCYTES # (AUTO) 1.6 K/uL (1.0-4.8); LYMPHOCYTES % (AUTO) 43.2 % (22.0-44.0); MEAN CORPUSCULAR HEMOGLOBIN 27.4 pg (26.0-34.0); MEAN CORPUSCULAR HGB CONC 34.6 G/dL (31.0-37.0); MEAN CORPUSCULAR VOLUME 79 fL (80-100); MONOCYTES # (AUTO) 0.3 K/uL (0.1-1.0); MONOCYTES % (AUTO) 9.1 % (2.0-9.0); NEUTROPHILS # (AUTO) 1.7 K/uL (1.8-7.7); NEUTROPHILS % (AUTO) 46.9 % (40.0-70.0); PLATELET COUNT (AUTO) 151 K/uL (150-450); RED BLOOD CELL COUNT(AUTO) 5.64 MIL/uL (4.50-5.90); RED CELL DISTRIBUTION WIDTH 16.2 % (11.5-14.5)
[2019-04-01 19:17] LABS: ALANINE AMINOTRANSFERASE 132 U/L (12-78); ALBUMIN 3.8 g/dL (3.4-5.0); ALKALINE PHOSPHATASE 168 U/L (46-116); ANION GAP 13 mmol/L (8-16); ASPARTATE AMINOTRANSFERASE 228 U/L (15-37); BILIRUBIN,TOTAL 0.9 mg/dL (0.1-1.0); CARBON DIOXIDE 29 mmol/L (22-29); CHLORIDE 91 mmol/L (98-107); CREATININE 0.79 mg/dL (0.60-1.30); GLOMERULAR FILTR. RATE CALC > 60 mL/min (>60); GLUCOSE,RANDOM 197 mg/dL (70-110); POTASSIUM 3.3 mmol/L (3.5-5.1); SODIUM SERUM 133 mmol/L (136-145); TOTAL PROTEIN, SERUM 7.8 g/dL (6.4-8.2)
[2019-04-01 19:23] LABS: UREA NITROGEN, BLOOD 9 mg/dL (7-18)
[2019-04-01 22:02] LABS: AMPHET/METH SCREEN,URINE NEGATIVE (NEGATIVE); BARBITURATE SCREEN, URINE NEGATIVE (NEGATIVE); BENZODIAZEPINES SCREEN,URINE NEGATIVE (NEGATIVE); CANNABINOID SCREEN,URINE NEGATIVE (NEGATIVE); COCAINE SCREEN,URINE NEGATIVE (NEGATIVE); METHADONE SCREEN, URINE NEGATIVE (NEGATIVE); OPIATE SCREEN,URINE NEGATIVE (NEGATIVE)
[2019-04-01 22:06] LABS: PHENCYCLIDINE SCREEN,URINE NEGATIVE (NEGATIVE)
[2019-04-01] MEDS ORDERED: QUEtiapine FUMARATE 100 MG TABLET PO ONE (22:45)
[2019-04-01] MEDS ORDERED: CloNIDine HCL 0.2 MG TABLET PO ONE (23:45)
[2019-04-02 03:39] VITALS: BP 137/76
== END 2019-04-02 05:37 | disposition home or self-care (01) ==
LOC: EMS 17:30
DX: F32.9 Major depressive disorder, single episode, unspecified (principal); F10.129 Alcohol abuse with intoxication, unspecified; I10 Essential (primary) hypertension; E11.9 Type 2 diabetes mellitus without complications; Z79.84 Long term (current) use of oral hypoglycemic drugs; Z79.82 Long term (current) use of aspirin; Z79.899 Other long term (current) drug therapy
CPT/HCPCS: 36415; 80053; 80307; 85025; 99285; G0480

== ENCOUNTER 2019-08-01 22:36 | Inpatient (IN) | payer MEDICARE, MEDICAID ==
[~2019-08-01] VITALS: Ht 167.6 cm; Wt 107.4 kg
[~2019-08-01 22:36] MED LIST changes: +ASPI-728 PO; -ASPI81 PO
[2019-08-01 22:59] LABS: BASOPHILS % (AUTO) 0.4 % (0.0-2.0); EOSINOPHILS % (AUTO) 0.1 % (1.0-6.0); HEMATOCRIT 43.2 % (41-53); LYMPHOCYTES # (AUTO) 2.4 K/uL (1.0-4.8); LYMPHOCYTES % (AUTO) 49.1 % (22.0-44.0); MEAN CORPUSCULAR HEMOGLOBIN 27.8 pg (26.0-34.0); MEAN CORPUSCULAR HGB CONC 34.6 G/dL (31.0-37.0); MEAN CORPUSCULAR VOLUME 80 fL (80-100); MONOCYTES # (AUTO) 0.4 K/uL (0.1-1.0); MONOCYTES % (AUTO) 7.4 % (2.0-9.0); NEUTROPHILS # (AUTO) 2.1 K/uL (1.8-7.7); PLATELET COUNT (AUTO) 234 K/uL (150-450); RED BLOOD CELL COUNT(AUTO) 5.38 MIL/uL (4.50-5.90)
[2019-08-01 23:12] LABS: ANION GAP 10 mmol/L (8-16); CALCIUM, TOTAL 7.4 mg/dL (8.8-10.5); CARBON DIOXIDE 26 mmol/L (22-29); CHLORIDE 96 mmol/L (98-107); CREATININE 0.86 mg/dL (0.60-1.30); GLOMERULAR FILTR. RATE CALC > 60 mL/min (>60); GLUCOSE,RANDOM 164 mg/dL (70-110); POTASSIUM 3.7 mmol/L (3.5-5.1); SODIUM SERUM 132 mmol/L (136-145); UREA NITROGEN, BLOOD 12 mg/dL (7-18)
[2019-08-01 23:24] LABS: ALANINE AMINOTRANSFERASE 45 U/L (12-78); ALBUMIN 3.7 g/dL (3.4-5.0); ALKALINE PHOSPHATASE 105 U/L (46-116); ASPARTATE AMINOTRANSFERASE 57 U/L (15-37); BILIRUBIN,TOTAL 0.2 mg/dL (0.1-1.0); TOTAL PROTEIN, SERUM 7.4 g/dL (6.4-8.2)
[2019-08-02] VITALS (18 sets, daily range): BP systolic 94–152; BP diastolic 67–99
[2019-08-02] MEDS ORDERED: QUEtiapine FUMARATE 100 MG TABLET PO ONE
[2019-08-02] MEDS ORDERED: ESCI20TA43 PO (00:01)
[2019-08-02] MEDS ORDERED: QUET300T18 PO (00:01)
[2019-08-02] MEDS ORDERED: LORazepam 2 MG TABLET PO PRN ×2 (00:30→01:00)
[2019-08-02 00:47] LABS: GLUCOSE,POINT OF CARE 150 MG/DL (70-110)
[2019-08-02] MEDS ORDERED: INFLUENZA VIRUS VACCINE QVS 2019-20 (3YR+)/PF 60 MCG/0.5 ML SYRINGE IM ONE (06:30)
[2019-08-02] MEDS ORDERED: -PHARMACY VACCINE NOTE- MISC ONE (06:30)
[2019-08-02] MEDS: LEVOTHYROXINE SODIUM 25 MCG TABLET PO SCH (07:55)
[2019-08-02] MEDS: MetFORMIN HCL 500 MG TABLET PO SCH ×2 (07:55→17:10)
[2019-08-02 07:59] LABS: GLUCOMETER DEV NAME(LOC) 3EX.; GLUCOSE,POINT OF CARE 144 MG/DL (70-110)
[2019-08-02] MEDS: ASPIRIN 81 MG CHEWABLE TABLET PO SCH (09:17)
[2019-08-02] MEDS: LISINOPRIL 20 MG TABLET PO SCH (09:17)
[2019-08-02] MEDS ORDERED: LISI-661 PO (12:25)
[2019-08-02] MEDS ORDERED: LOPERAMIDE HCL 2 MG CAPSULE PO PRN ×2 (12:30→15:00)
[2019-08-02] MEDS ORDERED: ALBUTEROL SULFATE HFA 90 MCG/PUFF 8 GM INHALER IH PRN (12:30)
[2019-08-02] MEDS ORDERED: MAG HYDROX/AL HYDROX/SIMETH ES 30 ML SUSPENSION UDCUP PO PRN (12:30)
[2019-08-02] MEDS ORDERED: CloNIDine HCL 0.1 MG TABLET PO PRN (12:30)
[2019-08-02] MEDS ORDERED: IBUPROFEN 400 MG TABLET PO PRN (12:30)
[2019-08-02] MEDS ORDERED: DOCUSATE SODIUM 100 MG CAPSULE PO PRN (12:30)
[2019-08-02] MEDS ORDERED: GuaiFENesin/D-METHORPHAN [SUGAR-FREE] 200-20MG/10 ML SYRUP UDCUP PO PRN ×2 (12:30→15:00)
[2019-08-02] MEDS ORDERED: PETROLATUM,WHITE 28 GM JELLY TP PRN (12:30)
[2019-08-02] MEDS ORDERED: MAGNESIUM HYDROXIDE SUSPENSION 30 ML UDCUP PO PRN (12:30)
[2019-08-02] MEDS ORDERED: ONDANSETRON HCL 4 MG TABLET PO PRN (12:30)
[2019-08-02] MEDS ORDERED: ACETAMINOPHEN 325 MG TABLET PO PRN (12:30)
[2019-08-02] MEDS ORDERED: NICOTINE 14 MG/24 HOUR PATCH TD PRN (12:30)
[2019-08-02] MEDS ORDERED: CYANOCOBALAMIN 1,000 MCG/ML VIAL IM ONE (15:00)
[2019-08-02] MEDS ORDERED: HydrOXYzine PAMOATE 50 MG CAPSULE PO PRN (15:00)
[2019-08-02] MEDS ORDERED: TUBERCULIN, PURIFIED PROTEIN DERIVATIVE 5 TU/0.1 ML SYRINGE ID ONE (15:00)
[2019-08-02] MEDS ORDERED: PROMETHAZINE HCL 25 MG TABLET PO PRN (15:00)
[2019-08-02] MEDS ORDERED: DIAZEPAM 10 MG TABLET PO PRN (15:00)
[2019-08-02] MEDS: THIAMINE HCL 100 MG TABLET PO SCH (17:10)
[2019-08-02 17:29] LABS: GLUCOMETER DEV NAME(LOC) 3EX.; GLUCOSE,POINT OF CARE 169 MG/DL (70-110)
[2019-08-02] MEDS: OLANZapine 5 MG RAPDIS TABLET PO SCH (20:07)
[2019-08-02] MEDS: ATORVASTATIN CALCIUM 40 MG TABLET PO SCH (20:07)
[2019-08-02] MEDS: ZOLPIDEM TARTRATE 10 MG TABLET PO PRN (20:13)
[2019-08-03] VITALS (9 sets, daily range): BP systolic 126–155; BP diastolic 80–103
[2019-08-03 06:31] LABS: GLUCOMETER DEV NAME(LOC) 3E.I 2; GLUCOSE,POINT OF CARE 186 MG/DL (70-110)
[2019-08-03] MEDS: MetFORMIN HCL 500 MG TABLET PO SCH ×2 (06:46→17:02)
[2019-08-03] MEDS: LEVOTHYROXINE SODIUM 25 MCG TABLET PO SCH (06:46)
[2019-08-03] MEDS ORDERED: LORazepam 2 MG TABLET PO PRN (07:00)
[2019-08-03 07:41] LABS: HEMOGLOBIN A1C 7.1 % (4.5-6.2)
[2019-08-03 07:48] LABS: CHOL/HDL RATIO 3.3 (4.2-7.3); FREE T4 (FREE THYROXINE) 0.68 ng/dL (0.76-1.46); THYROID STIMULATING HORMONE 5.67 uIU/mL (0.36-3.74)
[2019-08-03] MEDS: ASPIRIN 81 MG CHEWABLE TABLET PO SCH (08:36)
[2019-08-03] MEDS: MULTIVITAMINS WITH MINERALS, THERAPEUTIC TABLET PO SCH (08:36)
[2019-08-03] MEDS: DIAZEPAM 10 MG TABLET PO SCH ×4 (08:36→20:37)
[2019-08-03] MEDS: LISINOPRIL 20 MG TABLET PO SCH (08:36)
[2019-08-03] MEDS: THIAMINE HCL 100 MG TABLET PO SCH ×2 (08:36→17:02)
[2019-08-03] MEDS: FOLIC ACID 1 MG TABLET PO SCH (08:36)
[2019-08-03] MEDS: NALTREXONE HCL 50 MG TABLET PO SCH (08:37)
[2019-08-03] MEDS ORDERED: LORazepam 2 MG TABLET PO SCH (09:00)
[2019-08-03] MEDS: DIAZEPAM 10 MG TABLET PO PRN (11:51)
[2019-08-03 17:24] LABS: GLUCOMETER DEV NAME(LOC) 3EX.; GLUCOSE,POINT OF CARE 194 MG/DL (70-110)
[2019-08-03] MEDS: ATORVASTATIN CALCIUM 40 MG TABLET PO SCH (20:37)
[2019-08-03] MEDS: OLANZapine 5 MG RAPDIS TABLET PO SCH (20:37)
[2019-08-04 05:36] VITALS: BP 124/74
[2019-08-04 06:17] LABS: GLUCOMETER DEV NAME(LOC) 3E.I 2; GLUCOSE,POINT OF CARE 166 MG/DL (70-110)
[2019-08-04] MEDS: LEVOTHYROXINE SODIUM 25 MCG TABLET PO SCH (06:50)
[2019-08-04] MEDS: MetFORMIN HCL 500 MG TABLET PO SCH ×2 (06:50→17:45)
[2019-08-04] MEDS: MULTIVITAMINS WITH MINERALS, THERAPEUTIC TABLET PO SCH (07:50)
[2019-08-04] MEDS: DIAZEPAM 10 MG TABLET PO SCH ×4 (07:50→21:06)
[2019-08-04] MEDS: THIAMINE HCL 100 MG TABLET PO SCH ×2 (07:50→17:27)
[2019-08-04] MEDS: ASPIRIN 81 MG CHEWABLE TABLET PO SCH (07:50)
[2019-08-04] MEDS: LISINOPRIL 20 MG TABLET PO SCH (07:50)
[2019-08-04] MEDS: DULoxetine HCL 20 MG CAPSULE PO SCH (07:51)
[2019-08-04] MEDS: NALTREXONE HCL 50 MG TABLET PO SCH (07:51)
[2019-08-04] MEDS: FOLIC ACID 1 MG TABLET PO SCH (07:51)
[2019-08-04 09:21] VITALS: BP 160/110
[2019-08-04 10:01] VITALS: BP 141/64
[2019-08-04 15:31] VITALS: BP 133/88
[2019-08-04] MEDS: DIAZEPAM 10 MG TABLET PO PRN (15:31)
[2019-08-04 16:00] VITALS: BP 133/88
[2019-08-04 16:55] LABS: GLUCOMETER DEV NAME(LOC) 3E.I 2; GLUCOSE,POINT OF CARE 158 MG/DL (70-110)
[2019-08-04 17:04] VITALS: BP 133/88
[2019-08-04] MEDS: OLANZapine 5 MG RAPDIS TABLET PO SCH (21:06)
[2019-08-04] MEDS: ATORVASTATIN CALCIUM 40 MG TABLET PO SCH (21:34)
[2019-08-05] MEDS: DIAZEPAM 10 MG TABLET PO PRN (04:48)
[2019-08-05 04:56] VITALS: BP 140/95
[2019-08-05 05:53] LABS: GLUCOMETER DEV NAME(LOC) 3E.I 2; GLUCOSE,POINT OF CARE 128 MG/DL (70-110)
[2019-08-05] MEDS ORDERED: LORazepam 1 MG TABLET PO PRN (07:00)
[2019-08-05] MEDS ORDERED: DIAZEPAM 5 MG TABLET PO PRN (07:00)
[2019-08-05] MEDS: LEVOTHYROXINE SODIUM 25 MCG TABLET PO SCH (07:04)
[2019-08-05] MEDS: MetFORMIN HCL 500 MG TABLET PO SCH ×2 (07:04→16:46)
[2019-08-05] MEDS: FOLIC ACID 1 MG TABLET PO SCH (08:25)
[2019-08-05] MEDS: THIAMINE HCL 100 MG TABLET PO SCH ×2 (08:25→16:47)
[2019-08-05] MEDS: NALTREXONE HCL 50 MG TABLET PO SCH (08:25)
[2019-08-05] MEDS: DULoxetine HCL 20 MG CAPSULE PO SCH (08:25)
[2019-08-05] MEDS: LISINOPRIL 20 MG TABLET PO SCH (08:27)
[2019-08-05] MEDS: MULTIVITAMINS WITH MINERALS, THERAPEUTIC TABLET PO SCH (08:27)
[2019-08-05] MEDS: DIAZEPAM 5 MG TABLET PO SCH ×4 (08:59→20:15)
[2019-08-05] MEDS ORDERED: LORazepam 1 MG TABLET PO SCH (09:00)
[2019-08-05] MEDS: ASPIRIN 81 MG CHEWABLE TABLET PO SCH (09:00)
[2019-08-05 09:36] VITALS: BP 153/100
[2019-08-05 11:53] LABS: GLUCOMETER DEV NAME(LOC) 3EX.; GLUCOSE,POINT OF CARE 139 MG/DL (70-110)
[2019-08-05 16:37] VITALS: BP 132/63
[2019-08-05] MEDS: AmLODIPine BESYLATE 2.5 MG TABLET PO SCH (16:46)
[2019-08-05 16:56] LABS: GLUCOMETER DEV NAME(LOC) 3EX.; GLUCOSE,POINT OF CARE 158 MG/DL (70-110)
[2019-08-05] MEDS: ATORVASTATIN CALCIUM 40 MG TABLET PO SCH (20:15)
[2019-08-05] MEDS: OLANZapine 5 MG RAPDIS TABLET PO SCH (20:15)
[2019-08-06 05:41] LABS: GLUCOMETER DEV NAME(LOC) 3E.I 2; GLUCOSE,POINT OF CARE 139 MG/DL (70-110)
[2019-08-06] MEDS ORDERED: LORazepam 1 MG TABLET PO PRN (07:00)
[2019-08-06 07:13] VITALS: BP 150/79
[2019-08-06] MEDS: LEVOTHYROXINE SODIUM 25 MCG TABLET PO SCH (07:14)
[2019-08-06] MEDS: MetFORMIN HCL 500 MG TABLET PO SCH ×2 (07:14→16:43)
[2019-08-06 09:05] VITALS: BP 161/91
[2019-08-06 09:07] VITALS: BP 161/91
[2019-08-06] MEDS: MULTIVITAMINS WITH MINERALS, THERAPEUTIC TABLET PO SCH (09:16)
[2019-08-06] MEDS: AmLODIPine BESYLATE 2.5 MG TABLET PO SCH (09:16)
[2019-08-06] MEDS: DULoxetine HCL 20 MG CAPSULE PO SCH (09:16)
[2019-08-06] MEDS: FOLIC ACID 1 MG TABLET PO SCH (09:16)
[2019-08-06] MEDS: ASPIRIN 81 MG CHEWABLE TABLET PO SCH (09:17)
[2019-08-06] MEDS: DIAZEPAM 5 MG TABLET PO PRN ×2 (09:17→17:02)
[2019-08-06] MEDS: NALTREXONE HCL 50 MG TABLET PO SCH (09:17)
[2019-08-06] MEDS: LISINOPRIL 20 MG TABLET PO SCH (09:18)
[2019-08-06] MEDS: THIAMINE HCL 100 MG TABLET PO SCH ×2 (09:19→16:21)
[2019-08-06] MEDS ORDERED: LOPERAMIDE HCL 2 MG CAPSULE PO PRN (10:00)
[2019-08-06 16:56] LABS: GLUCOMETER DEV NAME(LOC) 3EX.; GLUCOSE,POINT OF CARE 172 MG/DL (70-110)
[2019-08-06] MEDS: ATORVASTATIN CALCIUM 40 MG TABLET PO SCH (20:14)
[2019-08-06] MEDS: OLANZapine 5 MG RAPDIS TABLET PO SCH (20:14)
[2019-08-06 21:02] VITALS: BP 148/79
[2019-08-06 21:04] VITALS: BP 148/79
[2019-08-06] MEDS: ZOLPIDEM TARTRATE 10 MG TABLET PO PRN (23:02)
[2019-08-07 05:42] LABS: GLUCOMETER DEV NAME(LOC) 3E.I 2; GLUCOSE,POINT OF CARE 155 MG/DL (70-110)
[2019-08-07] MEDS: LEVOTHYROXINE SODIUM 25 MCG TABLET PO SCH (07:07)
[2019-08-07] MEDS: DULoxetine HCL 20 MG CAPSULE PO SCH (08:16)
[2019-08-07] MEDS: MetFORMIN HCL 500 MG TABLET PO SCH ×2 (08:16→16:42)
[2019-08-07] MEDS: AmLODIPine BESYLATE 2.5 MG TABLET PO SCH (08:16)
[2019-08-07] MEDS: THIAMINE HCL 100 MG TABLET PO SCH ×2 (08:17→16:42)
[2019-08-07] MEDS: FOLIC ACID 1 MG TABLET PO SCH (08:17)
[2019-08-07] MEDS: NALTREXONE HCL 50 MG TABLET PO SCH (08:17)
[2019-08-07] MEDS: LISINOPRIL 20 MG TABLET PO SCH (08:17)
[2019-08-07] MEDS: ASPIRIN 81 MG CHEWABLE TABLET PO SCH (08:17)
[2019-08-07] MEDS: MULTIVITAMINS WITH MINERALS, THERAPEUTIC TABLET PO SCH (08:17)
[2019-08-07] MEDS: OLANZapine 5 MG RAPDIS TABLET PO PRN (08:34)
[2019-08-07 10:43] VITALS: BP 145/98
[2019-08-07 17:12] LABS: GLUCOMETER DEV NAME(LOC) 3EX.; GLUCOSE,POINT OF CARE 151 MG/DL (70-110)
[2019-08-07 17:35] VITALS: BP 137/86
[2019-08-07] MEDS: OLANZapine 5 MG RAPDIS TABLET PO SCH (20:37)
[2019-08-07] MEDS: ATORVASTATIN CALCIUM 40 MG TABLET PO SCH (20:37)
[2019-08-07] MEDS: ZOLPIDEM TARTRATE 10 MG TABLET PO PRN (21:09)
[2019-08-08] MEDS: LEVOTHYROXINE SODIUM 25 MCG TABLET PO SCH (06:40)
[2019-08-08] MEDS: MetFORMIN HCL 500 MG TABLET PO SCH ×2 (06:41→16:41)
[2019-08-08 06:52] LABS: GLUCOMETER DEV NAME(LOC) 3E.I 2; GLUCOSE,POINT OF CARE 141 MG/DL (70-110)
[2019-08-08] MEDS: MULTIVITAMINS WITH MINERALS, THERAPEUTIC TABLET PO SCH (08:22)
[2019-08-08] MEDS: ASPIRIN 81 MG CHEWABLE TABLET PO SCH (08:22)
[2019-08-08] MEDS: THIAMINE HCL 100 MG TABLET PO SCH ×2 (08:22→16:41)
[2019-08-08] MEDS: LISINOPRIL 20 MG TABLET PO SCH (08:22)
[2019-08-08] MEDS: NALTREXONE HCL 50 MG TABLET PO SCH (08:23)
[2019-08-08] MEDS: DULoxetine HCL 20 MG CAPSULE PO SCH (08:23)
[2019-08-08] MEDS: FOLIC ACID 1 MG TABLET PO SCH (08:23)
[2019-08-08] MEDS: AmLODIPine BESYLATE 2.5 MG TABLET PO SCH (08:23)
[2019-08-08 08:37] VITALS: BP 158/100
[2019-08-08 16:45] VITALS: BP 127/84
[2019-08-08] MEDS: OLANZapine 5 MG RAPDIS TABLET PO PRN (16:59)
[2019-08-08 17:00] LABS: GLUCOMETER DEV NAME(LOC) 3EX.; GLUCOSE,POINT OF CARE 120 MG/DL (70-110)
[2019-08-08] MEDS: ATORVASTATIN CALCIUM 40 MG TABLET PO SCH (20:33)
[2019-08-08] MEDS: OLANZapine 5 MG RAPDIS TABLET PO SCH (20:34)
[2019-08-08] MEDS: ZOLPIDEM TARTRATE 10 MG TABLET PO PRN (22:04)
[2019-08-09 06:15] LABS: GLUCOMETER DEV NAME(LOC) 3E.I 2; GLUCOSE,POINT OF CARE 213 MG/DL (70-110)
[2019-08-09] MEDS: MetFORMIN HCL 500 MG TABLET PO SCH ×2 (06:51→16:30)
[2019-08-09] MEDS: LEVOTHYROXINE SODIUM 25 MCG TABLET PO SCH (06:51)
[2019-08-09] MEDS: AmLODIPine BESYLATE 2.5 MG TABLET PO SCH (08:37)
[2019-08-09] MEDS: MULTIVITAMINS WITH MINERALS, THERAPEUTIC TABLET PO SCH (08:37)
[2019-08-09] MEDS: ASPIRIN 81 MG CHEWABLE TABLET PO SCH (08:37)
[2019-08-09] MEDS: FOLIC ACID 1 MG TABLET PO SCH (08:37)
[2019-08-09] MEDS: LISINOPRIL 20 MG TABLET PO SCH (08:37)
[2019-08-09] MEDS: DULoxetine HCL 20 MG CAPSULE PO SCH (08:37)
[2019-08-09] MEDS: NALTREXONE HCL 50 MG TABLET PO SCH (08:37)
[2019-08-09] MEDS: THIAMINE HCL 100 MG TABLET PO SCH ×2 (08:37→16:30)
[2019-08-09 09:16] VITALS: BP 156/92
[2019-08-09 17:02] LABS: GLUCOMETER DEV NAME(LOC) 3EX.; GLUCOSE,POINT OF CARE 116 MG/DL (70-110)
[2019-08-09 17:41] VITALS: BP 140/90
[2019-08-09] MEDS ORDERED: QUEtiapine FUMARATE 100 MG TABLET PO PRN (18:15)
[2019-08-09] MEDS: QUEtiapine FUMARATE 300 MG TABLET PO SCH (20:20)
[2019-08-09] MEDS: ATORVASTATIN CALCIUM 40 MG TABLET PO SCH (20:20)
[2019-08-09] MEDS: ZOLPIDEM TARTRATE 10 MG TABLET PO PRN (21:05)
[2019-08-10 05:59] LABS: GLUCOMETER DEV NAME(LOC) 3E.I 2; GLUCOSE,POINT OF CARE 125 MG/DL (70-110)
[2019-08-10] MEDS: LEVOTHYROXINE SODIUM 25 MCG TABLET PO SCH (07:16)
[2019-08-10] MEDS: MetFORMIN HCL 500 MG TABLET PO SCH ×2 (07:16→17:02)
[2019-08-10 09:06] VITALS: BP 132/78
[2019-08-10] MEDS: ASPIRIN 81 MG CHEWABLE TABLET PO SCH (09:06)
[2019-08-10] MEDS: FOLIC ACID 1 MG TABLET PO SCH (09:09)
[2019-08-10] MEDS: THIAMINE HCL 100 MG TABLET PO SCH ×2 (09:09→17:02)
[2019-08-10] MEDS: DULoxetine HCL 20 MG CAPSULE PO SCH (09:09)
[2019-08-10] MEDS: MULTIVITAMINS WITH MINERALS, THERAPEUTIC TABLET PO SCH (09:09)
[2019-08-10] MEDS: LISINOPRIL 20 MG TABLET PO SCH (09:09)
[2019-08-10] MEDS: AmLODIPine BESYLATE 2.5 MG TABLET PO SCH (09:10)
[2019-08-10] MEDS: NALTREXONE HCL 50 MG TABLET PO SCH (09:10)
[2019-08-10 17:00] VITALS: BP 131/80
[2019-08-10 17:20] LABS: GLUCOMETER DEV NAME(LOC) 3EX.; GLUCOSE,POINT OF CARE 148 MG/DL (70-110)
[2019-08-10] MEDS: QUEtiapine FUMARATE 300 MG TABLET PO SCH (21:12)
[2019-08-10] MEDS: ATORVASTATIN CALCIUM 40 MG TABLET PO SCH (21:12)
[2019-08-10] MEDS: ZOLPIDEM TARTRATE 10 MG TABLET PO PRN (21:13)
[2019-08-11 05:50] LABS: GLUCOMETER DEV NAME(LOC) 3E.I 2; GLUCOSE,POINT OF CARE 128 MG/DL (70-110)
[2019-08-11] MEDS: LEVOTHYROXINE SODIUM 25 MCG TABLET PO SCH (06:55)
[2019-08-11] MEDS: MetFORMIN HCL 500 MG TABLET PO SCH ×2 (06:55→17:04)
[2019-08-11 09:22] VITALS: BP 141/85
[2019-08-11] MEDS: ASPIRIN 81 MG CHEWABLE TABLET PO SCH (10:02)
[2019-08-11] MEDS: THIAMINE HCL 100 MG TABLET PO SCH ×2 (10:03→17:04)
[2019-08-11] MEDS: AmLODIPine BESYLATE 2.5 MG TABLET PO SCH (10:03)
[2019-08-11] MEDS: FOLIC ACID 1 MG TABLET PO SCH (10:03)
[2019-08-11] MEDS: NALTREXONE HCL 50 MG TABLET PO SCH (10:03)
[2019-08-11] MEDS: DULoxetine HCL 20 MG CAPSULE PO SCH (10:03)
[2019-08-11] MEDS: MULTIVITAMINS WITH MINERALS, THERAPEUTIC TABLET PO SCH (10:06)
[2019-08-11] MEDS: LISINOPRIL 20 MG TABLET PO SCH (10:37)
[2019-08-11 16:32] LABS: GLUCOMETER DEV NAME(LOC) 3EX.; GLUCOSE,POINT OF CARE 201 MG/DL (70-110)
[2019-08-11 16:51] VITALS: BP 141/74
[2019-08-11] MEDS ORDERED: NALT50TA PO (17:31)
[2019-08-11] MEDS ORDERED: QUET300T18 PO (17:31)
[2019-08-11] MEDS ORDERED: DULO20CA30 PO (17:31)
[2019-08-11] MEDS: QUEtiapine FUMARATE 300 MG TABLET PO SCH (20:26)
[2019-08-11] MEDS: ATORVASTATIN CALCIUM 40 MG TABLET PO SCH (20:26)
[2019-08-11] MEDS: ZOLPIDEM TARTRATE 10 MG TABLET PO PRN (22:28)
[2019-08-12 05:47] LABS: GLUCOMETER DEV NAME(LOC) 3E.I 2; GLUCOSE,POINT OF CARE 137 MG/DL (70-110)
[2019-08-12] MEDS: LEVOTHYROXINE SODIUM 25 MCG TABLET PO SCH (06:57)
[2019-08-12] MEDS: MetFORMIN HCL 500 MG TABLET PO SCH ×2 (06:57→16:29)
[2019-08-12] MEDS: LISINOPRIL 20 MG TABLET PO SCH (08:42)
[2019-08-12] MEDS: ASPIRIN 81 MG CHEWABLE TABLET PO SCH (08:42)
[2019-08-12] MEDS: THIAMINE HCL 100 MG TABLET PO SCH (08:42)
[2019-08-12] MEDS: FOLIC ACID 1 MG TABLET PO SCH (08:42)
[2019-08-12] MEDS: AmLODIPine BESYLATE 2.5 MG TABLET PO SCH (08:42)
[2019-08-12] MEDS: MULTIVITAMINS WITH MINERALS, THERAPEUTIC TABLET PO SCH (08:42)
[2019-08-12] MEDS: NALTREXONE HCL 50 MG TABLET PO SCH (08:42)
[2019-08-12] MEDS ORDERED: DULoxetine HCL 60 MG CAPSULE PO SCH (09:00)
[2019-08-12 11:52] VITALS: BP 146/93
[2019-08-12] MEDS ORDERED: LISI-662 PO (15:35)
[2019-08-12] MEDS ORDERED: AMLO2.5T4 PO ×2 (15:35→15:40)
[2019-08-12] MEDS ORDERED: ASPI81TA87 PO (15:40)
[2019-08-12] MEDS ORDERED: ATOR40TA28 PO (15:40)
[2019-08-12] MEDS ORDERED: LEVO125T95 PO (15:44)
[2019-08-12 16:45] LABS: GLUCOMETER DEV NAME(LOC) 3EX.; GLUCOSE,POINT OF CARE 186 MG/DL (70-110)
== END 2019-08-12 17:15 | disposition home or self-care (01) | DRG 885 ==
LOC: EMS 22:36 → 3EX 08-02 05:30
PROVIDERS: ADMIT Psychiatry & Neurology Psychiatry; ATTEND Psychiatry & Neurology Psychiatry
DX: F25.9 Schizoaffective disorder, unspecified (principal); E03.9 Hypothyroidism, unspecified; E11.9 Type 2 diabetes mellitus without complications; E66.01 Morbid (severe) obesity due to excess calories; E78.00 Pure hypercholesterolemia, unspecified; E78.5 Hyperlipidemia, unspecified; F10.10 Alcohol abuse, uncomplicated; F41.0 Panic disorder [episodic paroxysmal anxiety]; I10 Essential (primary) hypertension; J44.9 Chronic obstructive pulmonary disease, unspecified; Z81.1 Family history of alcohol abuse and dependence; Z87.891 Personal history of nicotine dependence; Z91.19 Patient's noncompliance with other medical treatment and regimen; Z68.38 Body mass index [BMI] 38.0-38.9, adult
CPT/HCPCS: 83036; 84439; 84443; 93005; G0378; G0480; J3420

== ENCOUNTER 2019-10-06 13:29 | Emergency (ER) | payer MEDICARE, OTHER ==
[~2019-10-06] VITALS: Ht 167.6 cm; Wt 100.0 kg
[~2019-10-06 13:29] MED LIST changes: +AMLO2.5T4 PO; -ASPI-728 PO; +ASPI81TA87 PO; +DULO20CA30 PO; -OMEG-135 PO; -QUET100T33 PO; +QUET300T18 PO
[2019-10-06 15:07] VITALS: BP 141/76
== END 2019-10-06 15:07 | disposition home or self-care (01) ==
LOC: EMS 13:33
DX: F25.9 Schizoaffective disorder, unspecified (principal); E11.9 Type 2 diabetes mellitus without complications; I10 Essential (primary) hypertension; F32.9 Major depressive disorder, single episode, unspecified; Z79.84 Long term (current) use of oral hypoglycemic drugs; Z79.899 Other long term (current) drug therapy

== ENCOUNTER → 2019-12-12 | Outpatient (CLI) | payer MEDICARE, OTHER, SELFPAY | END | disposition home or self-care (01) | LOC: RADPV 09:44 | PROVIDERS: ATTEND Internal Medicine Geriatric Medicine | DX: M17.12 Unilateral primary osteoarthritis, left knee (principal) ==

== ENCOUNTER 2020-02-29 12:23 | Emergency (ER) | payer MEDICARE, OTHER ==
[~2020-02-29] VITALS: Ht 167.6 cm; Wt 81.8 kg
[~2020-02-29 12:23] MED LIST changes: -AMLO2.5T4 PO; +AMLO2.5T96 PO; +DULO20CA27 PO; -DULO20CA30 PO
[2020-02-29] MEDS ORDERED: TRAZ-252 PO (14:28)
[2020-02-29 14:46] LABS: BASOPHILS % (AUTO) 0.3 % (0.0-2.0); EOSINOPHILS % (AUTO) 1.3 % (1.0-6.0); HEMATOCRIT 40.7 % (41-53); HEMOGLOBIN 13.8 g/dL (13.5-17.5); LYMPHOCYTES % (AUTO) 57.1 % (22.0-44.0); MEAN CORPUSCULAR HEMOGLOBIN 27.1 pg (26.0-34.0); MEAN CORPUSCULAR HGB CONC 33.9 G/dL (31.0-37.0); MEAN CORPUSCULAR VOLUME 80 fL (80-100); MONOCYTES # (AUTO) 0.4 K/uL (0.1-1.0); MONOCYTES % (AUTO) 12.6 % (2.0-9.0); NEUTROPHILS % (AUTO) 28.7 % (40.0-70.0); PLATELET COUNT (AUTO) 136 K/uL (150-450)
[2020-02-29 14:57] LABS: ANION GAP 10 mmol/L (8-16); CALCIUM, TOTAL 8.6 mg/dL (8.8-10.5); CARBON DIOXIDE 26 mmol/L (22-29); CHLORIDE 100 mmol/L (98-107); CREATININE 0.83 mg/dL (0.60-1.30); GLOMERULAR FILTR. RATE CALC > 60 mL/min (>60); GLUCOSE,RANDOM 125 mg/dL (70-110); POTASSIUM 3.6 mmol/L (3.5-5.1); SODIUM SERUM 136 mmol/L (136-145); UREA NITROGEN, BLOOD 7 mg/dL (7-18)
[2020-02-29 15:04] LABS: ALANINE AMINOTRANSFERASE 39 U/L (12-78); ALBUMIN 4.1 g/dL (3.4-5.0); ALKALINE PHOSPHATASE 100 U/L (46-116); ASPARTATE AMINOTRANSFERASE 63 U/L (15-37); BILIRUBIN,TOTAL 0.4 mg/dL (0.1-1.0); TOTAL PROTEIN, SERUM 7.9 g/dL (6.4-8.2)
[2020-02-29 15:27] LABS: AMPHET/METH SCREEN,URINE NEGATIVE (NEGATIVE); BARBITURATE SCREEN, URINE NEGATIVE (NEGATIVE); BENZODIAZEPINES SCREEN,URINE NEGATIVE (NEGATIVE); CANNABINOID SCREEN,URINE NEGATIVE (NEGATIVE); COCAINE SCREEN,URINE NEGATIVE (NEGATIVE); METHADONE SCREEN, URINE NEGATIVE (NEGATIVE); OPIATE SCREEN,URINE NEGATIVE (NEGATIVE)
[2020-02-29 15:32] LABS: PHENCYCLIDINE SCREEN,URINE NEGATIVE (NEGATIVE)
[2020-02-29] MEDS ORDERED: ChlordiazePOXIDE HCL 25 MG CAPSULE PO ONE ×2 (18:15→22:15)
[2020-02-29 18:50] LABS: GLUCOSE,POINT OF CARE 150 MG/DL (70-110)
[2020-02-29 22:21] LABS: GLUCOSE,POINT OF CARE 147 MG/DL (70-110)
[2020-03-01 00:35] VITALS: BP 161/96
== END 2020-03-01 01:11 ==
LOC: EMS 12:27
DX: F32.9 Major depressive disorder, single episode, unspecified (principal); F10.129 Alcohol abuse with intoxication, unspecified; Z20.828 Contact with and (suspected) exposure to other viral communicable diseases; E11.9 Type 2 diabetes mellitus without complications; I10 Essential (primary) hypertension; Y90.8 Blood alcohol level of 240 mg/100 ml or more
CPT/HCPCS: 36415; 80053; 80307; 82962; 85025; 87426; 99285; G0480

== ENCOUNTER 2021-11-15 18:25 | Inpatient (IN) | payer MEDICARE, MEDICAID ==
[~2021-11-15] VITALS: Ht 167.6 cm; Wt 113.4 kg
[~2021-11-15 18:25] MED LIST changes: +AMLO-257 PO; -AMLO2.5T96 PO; +ATOR20TA65 PO; -DULO20CA27 PO; -LEVO25TA9 PO; +LEVO50 PO; +LISI-894 PO; +METF-1211 PO; -METF-960 PO; -NALT50TA PO; +OMEG-108 PO; +QUET200T PO; -QUET300T18 PO; +TRAZ-252 PO
[2021-11-15 21:27] VITALS: BP 145/75
[2021-11-15] MEDS ORDERED: GLUCAGON,HUMAN RECOMBINANT 1 MG VIAL IM PRN (22:30)
[2021-11-15] MEDS ORDERED: TraZODone HCL 50 MG TABLET PO ONE (22:30)
[2021-11-15] MEDS ORDERED: QUEtiapine FUMARATE 200 MG TABLET PO ONE (22:30)
[2021-11-16 00:51] LABS: GLUCOMETER DEV NAME(LOC) POC.BV
[2021-11-16 06:09] VITALS: BP 149/86
[2021-11-16 06:16] LABS: GLUCOMETER DEV NAME(LOC) BV2X.2; GLUCOSE,POINT OF CARE 155 MG/DL (70-110)
[2021-11-16] MEDS: INSULIN LISPRO 100 UNITS/ML SQ PRN ×3 (06:26→20:30)
[2021-11-16] MEDS: ASPIRIN 81 MG CHEWABLE TABLET PO SCH (06:26)
[2021-11-16 07:21] LABS: BASOPHILS % (AUTO) 0.7 % (0.0-2.0); HEMOGLOBIN 8.6 g/dL (13.5-17.5); LYMPHOCYTES # (AUTO) 1.4 K/uL (1.0-4.8); LYMPHOCYTES % (AUTO) 33.3 % (22.0-44.0); MEAN CORPUSCULAR HEMOGLOBIN 17.9 pg (26.0-34.0); MEAN CORPUSCULAR HGB CONC 30.8 G/dL (31.0-37.0); MEAN CORPUSCULAR VOLUME 58 fL (80-100); MONOCYTES # (AUTO) 0.5 K/uL (0.1-1.0); MONOCYTES % (AUTO) 12.5 % (2.0-9.0); NEUTROPHILS % (AUTO) 49.5 % (40.0-70.0); PLATELET COUNT (AUTO) 235 K/uL (150-450); RED BLOOD CELL COUNT(AUTO) 4.81 MIL/uL (4.50-5.90); RED CELL DISTRIBUTION WIDTH 21.7 % (11.5-14.5)
[2021-11-16 07:43] LABS: ALANINE AMINOTRANSFERASE 28 U/L (12-78); ALBUMIN 3.3 g/dL (3.4-5.0); ALKALINE PHOSPHATASE 91 U/L (46-116); ANION GAP 8 mmol/L (8-16); ASPARTATE AMINOTRANSFERASE 22 U/L (15-37); BILIRUBIN,TOTAL 0.3 mg/dL (0.1-1.0); CALCIUM, TOTAL 7.7 mg/dL (8.8-10.5); CARBON DIOXIDE 29 mmol/L (22-29); CHLORIDE 100 mmol/L (98-107); CHOL/HDL RATIO 2.3 (4.2-7.3); CHOLESTEROL 171 mg/dL (131-200); FREE T4 (FREE THYROXINE) 0.76 ng/dL (0.76-1.46); GLOMERULAR FILTR. RATE CALC > 60 mL/min (>60); GLUCOSE,RANDOM 140 mg/dL (70-110); HDL CHOLESTEROL 75 mg/dL (40-60); LDL CHOL (CALC.) 57 mg/dL (0-130); POTASSIUM 3.5 mmol/L (3.5-5.1); SODIUM SERUM 137 mmol/L (136-145); THYROID STIMULATING HORMONE 5.71 uIU/mL (0.36-3.74); TOTAL PROTEIN, SERUM 6.6 g/dL (6.4-8.2); TRIGLYCERIDES 196 mg/dL (15-150); UREA NITROGEN, BLOOD 9 mg/dL (7-18)
[2021-11-16 07:52] LABS: HEMOGLOBIN A1C 7.8 % (3.8-5.6)
[2021-11-16 08:33] VITALS: BP 124/86
[2021-11-16] MEDS: LISINOPRIL 20 MG TABLET PO SCH (09:18)
[2021-11-16] MEDS: AmLODIPine BESYLATE 5 MG TABLET PO SCH (09:18)
[2021-11-16 11:36] LABS: GLUCOMETER DEV NAME(LOC) BV2X.2; GLUCOSE,POINT OF CARE 169 MG/DL (70-110)
[2021-11-16 16:36] LABS: GLUCOMETER DEV NAME(LOC) BV2X.2; GLUCOSE,POINT OF CARE 140 MG/DL (70-110)
[2021-11-16 21:00] VITALS: BP 159/62
[2021-11-16] MEDS: ATORVASTATIN CALCIUM 20 MG TABLET PO SCH (21:03)
[2021-11-16] MEDS: QUEtiapine FUMARATE 200 MG TABLET PO SCH (21:03)
[2021-11-16] MEDS: TraZODone HCL 50 MG TABLET PO SCH (21:03)
[2021-11-16 21:16] LABS: GLUCOMETER DEV NAME(LOC) BV2X.2; GLUCOSE,POINT OF CARE 177 MG/DL (70-110)
[2021-11-17] VITALS (7 sets, daily range): BP systolic 130–177; BP diastolic 72–85
[2021-11-17] MEDS: ASPIRIN 81 MG CHEWABLE TABLET PO SCH (06:26)
[2021-11-17 06:46] LABS: GLUCOMETER DEV NAME(LOC) BV2X.2; GLUCOSE,POINT OF CARE 139 MG/DL (70-110)
[2021-11-17] MEDS: AmLODIPine BESYLATE 5 MG TABLET PO SCH (09:05)
[2021-11-17] MEDS: LISINOPRIL 20 MG TABLET PO SCH (09:05)
[2021-11-17] MEDS ORDERED: IBUPROFEN 600 MG TABLET PO PRN (09:15)
[2021-11-17] MEDS: INSULIN LISPRO 100 UNITS/ML SQ PRN ×3 (11:08→20:28)
[2021-11-17 14:51] LABS: GLUCOMETER DEV NAME(LOC) BV2X.2; GLUCOSE,POINT OF CARE 165 MG/DL (70-110)
[2021-11-17] MEDS: MetFORMIN HCL 500 MG TABLET PO SCH (16:06)
[2021-11-17 16:41] LABS: GLUCOMETER DEV NAME(LOC) BV2X.2; GLUCOSE,POINT OF CARE 168 MG/DL (70-110)
[2021-11-17] MEDS: IBUPROFEN 800 MG TABLET PO PRN (18:25)
[2021-11-17 21:06] LABS: GLUCOMETER DEV NAME(LOC) BV2X.2; GLUCOSE,POINT OF CARE 153 MG/DL (70-110)
[2021-11-17] MEDS: ATORVASTATIN CALCIUM 20 MG TABLET PO SCH (21:09)
[2021-11-17] MEDS: QUEtiapine FUMARATE 200 MG TABLET PO SCH (21:09)
[2021-11-17] MEDS: TraZODone HCL 50 MG TABLET PO SCH (21:09)
[2021-11-18 06:18] VITALS: BP 161/83
[2021-11-18] MEDS: MetFORMIN HCL 500 MG TABLET PO SCH ×2 (06:30→16:36)
[2021-11-18] MEDS: IBUPROFEN 800 MG TABLET PO PRN ×3 (06:30→19:47)
[2021-11-18] MEDS: ASPIRIN 81 MG CHEWABLE TABLET PO SCH (06:30)
[2021-11-18 06:31] LABS: GLUCOMETER DEV NAME(LOC) BV2X.2; GLUCOSE,POINT OF CARE 140 MG/DL (70-110)
[2021-11-18] MEDS: OMEGA-3/DHA/EPA/FISH OIL 1,000 MG CAPSULE PO SCH (08:30)
[2021-11-18] MEDS: LISINOPRIL 20 MG TABLET PO SCH (08:30)
[2021-11-18] MEDS: FOLIC ACID 1 MG TABLET PO SCH (08:31)
[2021-11-18] MEDS: THIAMINE 100 MG TABLET PO SCH (08:31)
[2021-11-18] MEDS: AmLODIPine BESYLATE 5 MG TABLET PO SCH (08:35)
[2021-11-18 09:19] VITALS: BP 131/68
[2021-11-18 15:31] LABS: GLUCOMETER DEV NAME(LOC) BV2X.2; GLUCOSE,POINT OF CARE 119 MG/DL (70-110)
[2021-11-18 16:17] VITALS: BP 143/69
[2021-11-18 16:26] LABS: GLUCOMETER DEV NAME(LOC) BV2X.2; GLUCOSE,POINT OF CARE 186 MG/DL (70-110)
[2021-11-18] MEDS: INSULIN LISPRO 100 UNITS/ML SQ PRN (16:40)
[2021-11-18 19:38] VITALS: BP 146/79
[2021-11-18 20:36] LABS: GLUCOMETER DEV NAME(LOC) BV2X.2; GLUCOSE,POINT OF CARE 133 MG/DL (70-110)
[2021-11-18] MEDS: ATORVASTATIN CALCIUM 20 MG TABLET PO SCH (21:07)
[2021-11-18] MEDS: QUEtiapine FUMARATE 200 MG TABLET PO SCH (21:07)
[2021-11-18] MEDS: TraZODone HCL 50 MG TABLET PO SCH (21:07)
[2021-11-19 06:26] LABS: GLUCOMETER DEV NAME(LOC) BV2X.2; GLUCOSE,POINT OF CARE 146 MG/DL (70-110)
[2021-11-19] MEDS: MetFORMIN HCL 500 MG TABLET PO SCH ×2 (06:34→16:08)
[2021-11-19] MEDS: ASPIRIN 81 MG CHEWABLE TABLET PO SCH (06:35)
[2021-11-19] MEDS: LinaGLIPtin 5 MG TABLET PO SCH (06:41)
[2021-11-19] MEDS: INSULIN LISPRO 100 UNITS/ML SQ PRN ×2 (06:43→16:32)
[2021-11-19] MEDS: LEVOTHYROXINE SODIUM 25 MCG TABLET PO SCH (06:43)
[2021-11-19 08:12] VITALS: BP 140/62
[2021-11-19] MEDS: THIAMINE 100 MG TABLET PO SCH (08:12)
[2021-11-19] MEDS: AmLODIPine BESYLATE 5 MG TABLET PO SCH (08:12)
[2021-11-19] MEDS: FOLIC ACID 1 MG TABLET PO SCH (08:12)
[2021-11-19] MEDS: OMEGA-3/DHA/EPA/FISH OIL 1,000 MG CAPSULE PO SCH (08:12)
[2021-11-19] MEDS: LISINOPRIL 20 MG TABLET PO SCH (08:12)
[2021-11-19] MEDS: IBUPROFEN 800 MG TABLET PO PRN ×3 (08:13→21:21)
[2021-11-19 11:31] LABS: GLUCOMETER DEV NAME(LOC) BV2X.2; GLUCOSE,POINT OF CARE 118 MG/DL (70-110)
[2021-11-19 12:06] LABS: GLUCOMETER DEV NAME(LOC) POC.BV
[2021-11-19 14:32] VITALS: BP 137/70
[2021-11-19 16:13] VITALS: BP 145/51
[2021-11-19 16:41] LABS: GLUCOMETER DEV NAME(LOC) BV2X.2; GLUCOSE,POINT OF CARE 194 MG/DL (70-110)
[2021-11-19] MEDS: TraZODone HCL 50 MG TABLET PO SCH (20:07)
[2021-11-19] MEDS: ATORVASTATIN CALCIUM 20 MG TABLET PO SCH (20:07)
[2021-11-19] MEDS: QUEtiapine FUMARATE 200 MG TABLET PO SCH (20:08)
[2021-11-19 20:21] LABS: GLUCOMETER DEV NAME(LOC) BV2X.2; GLUCOSE,POINT OF CARE 113 MG/DL (70-110)
[2021-11-20 01:05] VITALS: BP 142/68
[2021-11-20 06:21] LABS: GLUCOMETER DEV NAME(LOC) BV2X.2; GLUCOSE,POINT OF CARE 127 MG/DL (70-110)
[2021-11-20] MEDS: LEVOTHYROXINE SODIUM 25 MCG TABLET PO SCH (06:53)
[2021-11-20] MEDS: ASPIRIN 81 MG CHEWABLE TABLET PO SCH (06:53)
[2021-11-20] MEDS: MetFORMIN HCL 500 MG TABLET PO SCH ×2 (06:53→16:24)
[2021-11-20 08:16] LABS: GLUCOMETER DEV NAME(LOC) POC.BV
[2021-11-20 08:39] VITALS: BP 131/60
[2021-11-20] MEDS: AmLODIPine BESYLATE 5 MG TABLET PO SCH (09:56)
[2021-11-20] MEDS: OMEGA-3/DHA/EPA/FISH OIL 1,000 MG CAPSULE PO SCH (09:56)
[2021-11-20] MEDS: LISINOPRIL 20 MG TABLET PO SCH (09:56)
[2021-11-20] MEDS: LinaGLIPtin 5 MG TABLET PO SCH (09:56)
[2021-11-20] MEDS: THIAMINE 100 MG TABLET PO SCH (09:56)
[2021-11-20] MEDS: FOLIC ACID 1 MG TABLET PO SCH (09:56)
[2021-11-20] MEDS: IBUPROFEN 800 MG TABLET PO PRN ×2 (09:57→16:24)
[2021-11-20 11:42] LABS: GLUCOMETER DEV NAME(LOC) BV2X.2; GLUCOSE,POINT OF CARE 126 MG/DL (70-110)
[2021-11-20 13:09] VITALS: BP 136/65
[2021-11-20] MEDS: TraMADol HCL 50 MG TABLET PO PRN ×2 (13:09→21:05)
[2021-11-20 16:16] VITALS: BP 131/86
[2021-11-20 16:20] VITALS: BP 130/82
[2021-11-20 16:47] LABS: GLUCOMETER DEV NAME(LOC) POC.BV
[2021-11-20 17:31] LABS: GLUCOMETER DEV NAME(LOC) BV2X.2; GLUCOSE,POINT OF CARE 135 MG/DL (70-110)
[2021-11-20 21:00] VITALS: BP 135/79
[2021-11-20] MEDS: QUEtiapine FUMARATE 200 MG TABLET PO SCH (21:00)
[2021-11-20] MEDS: ATORVASTATIN CALCIUM 20 MG TABLET PO SCH (21:00)
[2021-11-20] MEDS: TraZODone HCL 50 MG TABLET PO SCH (21:00)
[2021-11-20 23:31] LABS: GLUCOMETER DEV NAME(LOC) BV2X.2; GLUCOSE,POINT OF CARE 106 MG/DL (70-110)
[2021-11-21 00:57] VITALS: BP 130/77
[2021-11-21] MEDS: LEVOTHYROXINE SODIUM 25 MCG TABLET PO SCH (06:16)
[2021-11-21] MEDS: TraMADol HCL 50 MG TABLET PO PRN ×3 (06:24→20:59)
[2021-11-21 06:40] VITALS: BP 135/71
[2021-11-21 06:46] LABS: GLUCOMETER DEV NAME(LOC) BV2X.2; GLUCOSE,POINT OF CARE 131 MG/DL (70-110)
[2021-11-21] MEDS: ASPIRIN 81 MG CHEWABLE TABLET PO SCH (07:07)
[2021-11-21] MEDS: MetFORMIN HCL 500 MG TABLET PO SCH ×2 (07:07→16:54)
[2021-11-21] MEDS: THIAMINE 100 MG TABLET PO SCH (08:41)
[2021-11-21] MEDS: LISINOPRIL 20 MG TABLET PO SCH (08:41)
[2021-11-21] MEDS: OMEGA-3/DHA/EPA/FISH OIL 1,000 MG CAPSULE PO SCH (08:41)
[2021-11-21] MEDS: AmLODIPine BESYLATE 5 MG TABLET PO SCH (08:41)
[2021-11-21] MEDS: FOLIC ACID 1 MG TABLET PO SCH (08:41)
[2021-11-21] MEDS: LinaGLIPtin 5 MG TABLET PO SCH (08:41)
[2021-11-21 09:00] VITALS: BP 157/72
[2021-11-21 12:01] LABS: GLUCOMETER DEV NAME(LOC) BV2X.2; GLUCOSE,POINT OF CARE 75 MG/DL (70-110)
[2021-11-21 16:11] VITALS: BP 154/79
[2021-11-21 16:36] LABS: GLUCOMETER DEV NAME(LOC) BV2X.2; GLUCOSE,POINT OF CARE 135 MG/DL (70-110)
[2021-11-21] MEDS: IBUPROFEN 800 MG TABLET PO PRN (17:37)
[2021-11-21 20:59] VITALS: BP 155/75
[2021-11-21] MEDS: TraZODone HCL 50 MG TABLET PO SCH (20:59)
[2021-11-21] MEDS: QUEtiapine FUMARATE 200 MG TABLET PO SCH (20:59)
[2021-11-21] MEDS: ATORVASTATIN CALCIUM 20 MG TABLET PO SCH (20:59)
[2021-11-21 21:06] LABS: GLUCOMETER DEV NAME(LOC) BV2X.2; GLUCOSE,POINT OF CARE 124 MG/DL (70-110)
[2021-11-22 00:34] VITALS: BP 134/63
[2021-11-22] MEDS: LEVOTHYROXINE SODIUM 25 MCG TABLET PO SCH (06:23)
[2021-11-22] MEDS: ASPIRIN 81 MG CHEWABLE TABLET PO SCH (06:26)
[2021-11-22] MEDS: MetFORMIN HCL 500 MG TABLET PO SCH ×2 (06:26→16:22)
[2021-11-22] MEDS: TraMADol HCL 50 MG TABLET PO PRN ×3 (06:49→22:32)
[2021-11-22 07:16] LABS: GLUCOMETER DEV NAME(LOC) BV2X.2; GLUCOSE,POINT OF CARE 139 MG/DL (70-110)
[2021-11-22 08:30] VITALS: BP 128/60
[2021-11-22] MEDS: FOLIC ACID 1 MG TABLET PO SCH (08:42)
[2021-11-22] MEDS: LISINOPRIL 20 MG TABLET PO SCH (08:42)
[2021-11-22] MEDS: THIAMINE 100 MG TABLET PO SCH (08:42)
[2021-11-22] MEDS: AmLODIPine BESYLATE 5 MG TABLET PO SCH (08:42)
[2021-11-22] MEDS: OMEGA-3/DHA/EPA/FISH OIL 1,000 MG CAPSULE PO SCH (08:42)
[2021-11-22] MEDS: LinaGLIPtin 5 MG TABLET PO SCH (08:42)
[2021-11-22 11:41] LABS: GLUCOMETER DEV NAME(LOC) BV2X.2; GLUCOSE,POINT OF CARE 110 MG/DL (70-110)
[2021-11-22] MEDS: IBUPROFEN 800 MG TABLET PO PRN (13:31)
[2021-11-22 16:22] VITALS: BP 144/66
[2021-11-22 16:56] LABS: GLUCOMETER DEV NAME(LOC) BV2X.2; GLUCOSE,POINT OF CARE 130 MG/DL (70-110)
[2021-11-22] MEDS: QUEtiapine FUMARATE 200 MG TABLET PO SCH (21:13)
[2021-11-22] MEDS: TraZODone HCL 50 MG TABLET PO SCH (21:13)
[2021-11-22] MEDS: ATORVASTATIN CALCIUM 20 MG TABLET PO SCH (21:13)
[2021-11-22 21:17] LABS: GLUCOMETER DEV NAME(LOC) BV2X.2; GLUCOSE,POINT OF CARE 101 MG/DL (70-110)
[2021-11-22 22:32] VITALS: BP 140/77
[2021-11-23] MEDS: LEVOTHYROXINE SODIUM 25 MCG TABLET PO SCH (06:30)
[2021-11-23 06:50] VITALS: BP 136/75
[2021-11-23] MEDS: ASPIRIN 81 MG CHEWABLE TABLET PO SCH (06:52)
[2021-11-23] MEDS: MetFORMIN HCL 500 MG TABLET PO SCH ×2 (06:52→16:48)
[2021-11-23] MEDS: TraMADol HCL 50 MG TABLET PO PRN ×3 (06:52→22:18)
[2021-11-23 07:11] LABS: GLUCOMETER DEV NAME(LOC) BV2X.2; GLUCOSE,POINT OF CARE 138 MG/DL (70-110)
[2021-11-23 08:26] VITALS: BP 129/79
[2021-11-23] MEDS: OMEGA-3/DHA/EPA/FISH OIL 1,000 MG CAPSULE PO SCH (08:46)
[2021-11-23] MEDS: LISINOPRIL 20 MG TABLET PO SCH (08:46)
[2021-11-23] MEDS: FOLIC ACID 1 MG TABLET PO SCH (08:46)
[2021-11-23] MEDS: THIAMINE 100 MG TABLET PO SCH (08:46)
[2021-11-23] MEDS: LinaGLIPtin 5 MG TABLET PO SCH (08:46)
[2021-11-23] MEDS: MULTIVITAMINS WITH MINERALS, THERAPEUTIC TABLET PO SCH (08:46)
[2021-11-23] MEDS: AmLODIPine BESYLATE 5 MG TABLET PO SCH (08:46)
[2021-11-23 11:20] LABS: GLUCOMETER DEV NAME(LOC) BV2X.2; GLUCOSE,POINT OF CARE 90 MG/DL (70-110)
[2021-11-23 17:11] LABS: GLUCOMETER DEV NAME(LOC) BV2X.2; GLUCOSE,POINT OF CARE 128 MG/DL (70-110)
[2021-11-23 17:19] VITALS: BP 140/65
[2021-11-23 21:11] LABS: GLUCOMETER DEV NAME(LOC) BV2X.2; GLUCOSE,POINT OF CARE 116 MG/DL (70-110)
[2021-11-23] MEDS: QUEtiapine FUMARATE 200 MG TABLET PO SCH (22:11)
[2021-11-23] MEDS: TraZODone HCL 50 MG TABLET PO SCH (22:11)
[2021-11-23] MEDS: ATORVASTATIN CALCIUM 20 MG TABLET PO SCH (22:11)
[2021-11-24 01:08] VITALS: BP 141/63
[2021-11-24] MEDS: LEVOTHYROXINE SODIUM 25 MCG TABLET PO SCH (06:12)
[2021-11-24] MEDS: ASPIRIN 81 MG CHEWABLE TABLET PO SCH (07:01)
[2021-11-24] MEDS: MetFORMIN HCL 500 MG TABLET PO SCH ×2 (07:01→16:24)
[2021-11-24] MEDS: TraMADol HCL 50 MG TABLET PO PRN ×3 (07:01→21:17)
[2021-11-24 07:11] LABS: GLUCOMETER DEV NAME(LOC) BV2X.2; GLUCOSE,POINT OF CARE 119 MG/DL (70-110)
[2021-11-24 08:22] VITALS: BP 138/73
[2021-11-24] MEDS: AmLODIPine BESYLATE 5 MG TABLET PO SCH (08:44)
[2021-11-24] MEDS: MULTIVITAMINS WITH MINERALS, THERAPEUTIC TABLET PO SCH (08:44)
[2021-11-24] MEDS: OMEGA-3/DHA/EPA/FISH OIL 1,000 MG CAPSULE PO SCH (08:44)
[2021-11-24] MEDS: LISINOPRIL 20 MG TABLET PO SCH (08:44)
[2021-11-24] MEDS: LinaGLIPtin 5 MG TABLET PO SCH (08:44)
[2021-11-24 11:36] LABS: GLUCOMETER DEV NAME(LOC) BV2X.2; GLUCOSE,POINT OF CARE 140 MG/DL (70-110)
[2021-11-24 12:19] VITALS: BP 138/59
[2021-11-24 16:12] VITALS: BP 142/62
[2021-11-24 16:45] LABS: GLUCOMETER DEV NAME(LOC) BV2S.; GLUCOSE,POINT OF CARE 137 MG/DL (70-110)
[2021-11-24 20:36] LABS: GLUCOMETER DEV NAME(LOC) BV2X.2; GLUCOSE,POINT OF CARE 108 MG/DL (70-110)
[2021-11-24] MEDS: TraZODone HCL 50 MG TABLET PO SCH (21:17)
[2021-11-24] MEDS: QUEtiapine FUMARATE 200 MG TABLET PO SCH (21:17)
[2021-11-24] MEDS: ATORVASTATIN CALCIUM 20 MG TABLET PO SCH (21:17)
[2021-11-24 21:18] VITALS: BP 138/76
[2021-11-25 00:21] VITALS: BP 142/62
[2021-11-25] MEDS: ASPIRIN 81 MG CHEWABLE TABLET PO SCH (06:31)
[2021-11-25] MEDS: LEVOTHYROXINE SODIUM 25 MCG TABLET PO SCH (06:31)
[2021-11-25] MEDS: MetFORMIN HCL 500 MG TABLET PO SCH ×2 (06:31→16:49)
[2021-11-25] MEDS: TraMADol HCL 50 MG TABLET PO PRN ×3 (06:33→21:41)
[2021-11-25 06:46] LABS: GLUCOMETER DEV NAME(LOC) BV2X.2; GLUCOSE,POINT OF CARE 104 MG/DL (70-110)
[2021-11-25 08:38] VITALS: BP 112/56
[2021-11-25] MEDS: LinaGLIPtin 5 MG TABLET PO SCH (09:14)
[2021-11-25] MEDS: MULTIVITAMINS WITH MINERALS, THERAPEUTIC TABLET PO SCH (09:14)
[2021-11-25] MEDS: AmLODIPine BESYLATE 5 MG TABLET PO SCH (09:15)
[2021-11-25] MEDS: OMEGA-3/DHA/EPA/FISH OIL 1,000 MG CAPSULE PO SCH (09:15)
[2021-11-25] MEDS: LISINOPRIL 20 MG TABLET PO SCH (09:16)
[2021-11-25 11:21] LABS: GLUCOMETER DEV NAME(LOC) BV2X.2; GLUCOSE,POINT OF CARE 109 MG/DL (70-110)
[2021-11-25 13:36] VITALS: BP 118/65
[2021-11-25 16:16] VITALS: BP 115/69
[2021-11-25 17:01] LABS: GLUCOMETER DEV NAME(LOC) BV2X.2; GLUCOSE,POINT OF CARE 122 MG/DL (70-110)
[2021-11-25 20:36] LABS: GLUCOMETER DEV NAME(LOC) BV2X.2; GLUCOSE,POINT OF CARE 128 MG/DL (70-110)
[2021-11-25 21:31] VITALS: BP 152/68
[2021-11-25] MEDS: QUEtiapine FUMARATE 200 MG TABLET PO SCH (21:31)
[2021-11-25] MEDS: TraZODone HCL 50 MG TABLET PO SCH (21:31)
[2021-11-25] MEDS: ATORVASTATIN CALCIUM 20 MG TABLET PO SCH (21:31)
[2021-11-26 00:04] VITALS: BP 140/68
[2021-11-26 06:36] LABS: GLUCOMETER DEV NAME(LOC) BV2X.2; GLUCOSE,POINT OF CARE 106 MG/DL (70-110)
[2021-11-26] MEDS: MetFORMIN HCL 500 MG TABLET PO SCH ×2 (06:44→16:25)
[2021-11-26] MEDS: ASPIRIN 81 MG CHEWABLE TABLET PO SCH (06:44)
[2021-11-26] MEDS: LEVOTHYROXINE SODIUM 25 MCG TABLET PO SCH (06:44)
[2021-11-26 08:14] VITALS: BP 140/71
[2021-11-26] MEDS: OMEGA-3/DHA/EPA/FISH OIL 1,000 MG CAPSULE PO SCH (08:54)
[2021-11-26] MEDS: LISINOPRIL 20 MG TABLET PO SCH (08:54)
[2021-11-26] MEDS: LinaGLIPtin 5 MG TABLET PO SCH (08:54)
[2021-11-26] MEDS: MULTIVITAMINS WITH MINERALS, THERAPEUTIC TABLET PO SCH (08:54)
[2021-11-26] MEDS: AmLODIPine BESYLATE 5 MG TABLET PO SCH (08:54)
[2021-11-26] MEDS: TraMADol HCL 50 MG TABLET PO PRN ×2 (09:18→20:57)
[2021-11-26 11:41] LABS: GLUCOMETER DEV NAME(LOC) BV2X.2; GLUCOSE,POINT OF CARE 105 MG/DL (70-110)
[2021-11-26 16:32] LABS: GLUCOMETER DEV NAME(LOC) BV2X.2; GLUCOSE,POINT OF CARE 109 MG/DL (70-110)
[2021-11-26 17:33] VITALS: BP 138/74
[2021-11-26] MEDS: ATORVASTATIN CALCIUM 20 MG TABLET PO SCH (20:57)
[2021-11-26] MEDS: QUEtiapine FUMARATE 200 MG TABLET PO SCH (20:57)
[2021-11-26] MEDS: TraZODone HCL 50 MG TABLET PO SCH (20:57)
[2021-11-26 21:08] VITALS: BP 144/68
[2021-11-26 21:26] LABS: GLUCOMETER DEV NAME(LOC) BV2X.2; GLUCOSE,POINT OF CARE 97 MG/DL (70-110)
[2021-11-27] MEDS: LEVOTHYROXINE SODIUM 25 MCG TABLET PO SCH (06:15)
[2021-11-27] MEDS: MetFORMIN HCL 500 MG TABLET PO SCH ×2 (06:15→16:32)
[2021-11-27] MEDS: ASPIRIN 81 MG CHEWABLE TABLET PO SCH (06:16)
[2021-11-27 06:21] LABS: GLUCOMETER DEV NAME(LOC) BV2X.2; GLUCOSE,POINT OF CARE 122 MG/DL (70-110)
[2021-11-27 06:32] VITALS: BP 144/76
[2021-11-27 07:36] LABS: GLUCOMETER DEV NAME(LOC) POC.BV
[2021-11-27 08:24] VITALS: BP 136/68
[2021-11-27] MEDS: LinaGLIPtin 5 MG TABLET PO SCH (09:11)
[2021-11-27] MEDS: MULTIVITAMINS WITH MINERALS, THERAPEUTIC TABLET PO SCH (09:11)
[2021-11-27] MEDS: AmLODIPine BESYLATE 5 MG TABLET PO SCH (09:11)
[2021-11-27] MEDS: OMEGA-3/DHA/EPA/FISH OIL 1,000 MG CAPSULE PO SCH (09:11)
[2021-11-27] MEDS: LISINOPRIL 20 MG TABLET PO SCH (09:11)
[2021-11-27] MEDS: TraMADol HCL 50 MG TABLET PO PRN ×2 (09:13→21:38)
[2021-11-27 11:31] LABS: GLUCOMETER DEV NAME(LOC) BV2X.2; GLUCOSE,POINT OF CARE 104 MG/DL (70-110)
[2021-11-27 16:26] LABS: GLUCOMETER DEV NAME(LOC) BV2S.; GLUCOSE,POINT OF CARE 170 MG/DL (70-110)
[2021-11-27 16:27] VITALS: BP 135/72
[2021-11-27] MEDS: INSULIN LISPRO 100 UNITS/ML SQ PRN (16:34)
[2021-11-27 20:41] LABS: GLUCOMETER DEV NAME(LOC) BV2S.; GLUCOSE,POINT OF CARE 115 MG/DL (70-110)
[2021-11-27] MEDS: TraZODone HCL 50 MG TABLET PO SCH (21:34)
[2021-11-27] MEDS: QUEtiapine FUMARATE 200 MG TABLET PO SCH (21:34)
[2021-11-27] MEDS: ATORVASTATIN CALCIUM 20 MG TABLET PO SCH (21:35)
[2021-11-27 21:39] VITALS: BP 141/68
[2021-11-28 00:39] VITALS: BP 113/66
[2021-11-28 06:26] LABS: GLUCOMETER DEV NAME(LOC) BV2S.; GLUCOSE,POINT OF CARE 116 MG/DL (70-110)
[2021-11-28] MEDS: MetFORMIN HCL 500 MG TABLET PO SCH ×2 (06:41→16:29)
[2021-11-28] MEDS: LEVOTHYROXINE SODIUM 25 MCG TABLET PO SCH (06:41)
[2021-11-28] MEDS: ASPIRIN 81 MG CHEWABLE TABLET PO SCH (06:41)
[2021-11-28 08:20] VITALS: BP 128/61
[2021-11-28] MEDS: LinaGLIPtin 5 MG TABLET PO SCH (08:23)
[2021-11-28] MEDS: LISINOPRIL 20 MG TABLET PO SCH (08:23)
[2021-11-28] MEDS: AmLODIPine BESYLATE 5 MG TABLET PO SCH (08:23)
[2021-11-28] MEDS: OMEGA-3/DHA/EPA/FISH OIL 1,000 MG CAPSULE PO SCH (08:23)
[2021-11-28] MEDS: MULTIVITAMINS WITH MINERALS, THERAPEUTIC TABLET PO SCH (08:23)
[2021-11-28 11:16] LABS: GLUCOMETER DEV NAME(LOC) BV2X.2; GLUCOSE,POINT OF CARE 106 MG/DL (70-110)
[2021-11-28 16:47] LABS: GLUCOMETER DEV NAME(LOC) BV2X.2; GLUCOSE,POINT OF CARE 138 MG/DL (70-110)
[2021-11-28 16:59] VITALS: BP 135/58
[2021-11-28 20:31] LABS: GLUCOMETER DEV NAME(LOC) BV2X.2; GLUCOSE,POINT OF CARE 134 MG/DL (70-110)
[2021-11-28] MEDS: QUEtiapine FUMARATE 200 MG TABLET PO SCH (21:37)
[2021-11-28] MEDS: ATORVASTATIN CALCIUM 20 MG TABLET PO SCH (21:37)
[2021-11-28] MEDS: TraZODone HCL 50 MG TABLET PO SCH (21:37)
[2021-11-28] MEDS: TraMADol HCL 50 MG TABLET PO PRN (21:38)
[2021-11-29] MEDS: LEVOTHYROXINE SODIUM 25 MCG TABLET PO SCH (06:12)
[2021-11-29] MEDS: ASPIRIN 81 MG CHEWABLE TABLET PO SCH (06:13)
[2021-11-29] MEDS: MetFORMIN HCL 500 MG TABLET PO SCH ×2 (06:13→16:44)
[2021-11-29 06:19] VITALS: BP 139/70
[2021-11-29 06:27] LABS: GLUCOMETER DEV NAME(LOC) BV2X.2; GLUCOSE,POINT OF CARE 114 MG/DL (70-110)
[2021-11-29 08:27] VITALS: BP 135/60
[2021-11-29] MEDS: OMEGA-3/DHA/EPA/FISH OIL 1,000 MG CAPSULE PO SCH (08:40)
[2021-11-29] MEDS: LinaGLIPtin 5 MG TABLET PO SCH (08:40)
[2021-11-29] MEDS: AmLODIPine BESYLATE 5 MG TABLET PO SCH (08:40)
[2021-11-29] MEDS: MULTIVITAMINS WITH MINERALS, THERAPEUTIC TABLET PO SCH (08:40)
[2021-11-29] MEDS: LISINOPRIL 20 MG TABLET PO SCH (08:41)
[2021-11-29 11:22] LABS: GLUCOMETER DEV NAME(LOC) BV2X.2; GLUCOSE,POINT OF CARE 126 MG/DL (70-110)
[2021-11-29] MEDS: TraMADol HCL 50 MG TABLET PO PRN ×2 (14:30→21:33)
[2021-11-29 16:08] VITALS: BP 131/96
[2021-11-29 16:56] LABS: GLUCOMETER DEV NAME(LOC) BV2X.2; GLUCOSE,POINT OF CARE 125 MG/DL (70-110)
[2021-11-29 18:06] VITALS: BP 140/64
[2021-11-29 20:31] LABS: GLUCOMETER DEV NAME(LOC) BV2X.2; GLUCOSE,POINT OF CARE 106 MG/DL (70-110)
[2021-11-29] MEDS: ATORVASTATIN CALCIUM 20 MG TABLET PO SCH (21:29)
[2021-11-29] MEDS: QUEtiapine FUMARATE 200 MG TABLET PO SCH (21:29)
[2021-11-29] MEDS: TraZODone HCL 50 MG TABLET PO SCH (21:29)
[2021-11-30 01:00] VITALS: BP 124/70
[2021-11-30 06:18] VITALS: BP 133/74
[2021-11-30] MEDS: TraMADol HCL 50 MG TABLET PO PRN ×2 (06:18→21:25)
[2021-11-30 06:21] LABS: GLUCOMETER DEV NAME(LOC) BV2X.2; GLUCOSE,POINT OF CARE 123 MG/DL (70-110)
[2021-11-30] MEDS: ASPIRIN 81 MG CHEWABLE TABLET PO SCH (06:30)
[2021-11-30] MEDS: LEVOTHYROXINE SODIUM 25 MCG TABLET PO SCH (06:30)
[2021-11-30] MEDS: MetFORMIN HCL 500 MG TABLET PO SCH ×2 (06:30→16:40)
[2021-11-30 08:19] VITALS: BP 118/66
[2021-11-30] MEDS: AmLODIPine BESYLATE 5 MG TABLET PO SCH (08:54)
[2021-11-30] MEDS: MULTIVITAMINS WITH MINERALS, THERAPEUTIC TABLET PO SCH (08:54)
[2021-11-30] MEDS: LISINOPRIL 20 MG TABLET PO SCH (08:55)
[2021-11-30] MEDS: OMEGA-3/DHA/EPA/FISH OIL 1,000 MG CAPSULE PO SCH (08:55)
[2021-11-30] MEDS: LinaGLIPtin 5 MG TABLET PO SCH (08:55)
[2021-11-30 11:26] LABS: GLUCOMETER DEV NAME(LOC) BV2X.2; GLUCOSE,POINT OF CARE 116 MG/DL (70-110)
[2021-11-30 16:27] VITALS: BP 148/68
[2021-11-30] MEDS: INSULIN LISPRO 100 UNITS/ML SQ PRN (16:49)
[2021-11-30 17:06] LABS: GLUCOMETER DEV NAME(LOC) BV2X.2; GLUCOSE,POINT OF CARE 145 MG/DL (70-110)
[2021-11-30] MEDS: TraZODone HCL 50 MG TABLET PO SCH (21:25)
[2021-11-30] MEDS: ATORVASTATIN CALCIUM 20 MG TABLET PO SCH (21:25)
[2021-11-30] MEDS: QUEtiapine FUMARATE 200 MG TABLET PO SCH (21:25)
[2021-11-30 22:35] LABS: GLUCOMETER DEV NAME(LOC) BV2X.2; GLUCOSE,POINT OF CARE 78 MG/DL (70-110)
[2021-12-01 06:07] VITALS: BP_SYST 127; BP_SYST 132; BP_DIAS 63; BP_DIAS 84
[2021-12-01 06:11] LABS: GLUCOMETER DEV NAME(LOC) BV2X.2; GLUCOSE,POINT OF CARE 114 MG/DL (70-110)
[2021-12-01] MEDS: ASPIRIN 81 MG CHEWABLE TABLET PO SCH (06:35)
[2021-12-01] MEDS: LEVOTHYROXINE SODIUM 25 MCG TABLET PO SCH (06:35)
[2021-12-01] MEDS: TraMADol HCL 50 MG TABLET PO PRN ×3 (06:36→21:08)
[2021-12-01] MEDS: MetFORMIN HCL 500 MG TABLET PO SCH ×2 (06:36→16:22)
[2021-12-01 08:09] VITALS: BP 138/60
[2021-12-01] MEDS: MULTIVITAMINS WITH MINERALS, THERAPEUTIC TABLET PO SCH (08:27)
[2021-12-01] MEDS: LISINOPRIL 20 MG TABLET PO SCH (08:27)
[2021-12-01] MEDS: OMEGA-3/DHA/EPA/FISH OIL 1,000 MG CAPSULE PO SCH (08:27)
[2021-12-01] MEDS: LinaGLIPtin 5 MG TABLET PO SCH (08:27)
[2021-12-01] MEDS: AmLODIPine BESYLATE 5 MG TABLET PO SCH (08:27)
[2021-12-01 11:16] LABS: GLUCOMETER DEV NAME(LOC) BV2X.2; GLUCOSE,POINT OF CARE 112 MG/DL (70-110)
[2021-12-01 16:09] VITALS: BP 122/65
[2021-12-01 16:41] LABS: GLUCOMETER DEV NAME(LOC) BV2X.2; GLUCOSE,POINT OF CARE 111 MG/DL (70-110)
[2021-12-01 20:21] LABS: GLUCOMETER DEV NAME(LOC) BV2X.2; GLUCOSE,POINT OF CARE 146 MG/DL (70-110)
[2021-12-01] MEDS: TraZODone HCL 50 MG TABLET PO SCH (21:08)
[2021-12-01] MEDS: ATORVASTATIN CALCIUM 20 MG TABLET PO SCH (21:08)
[2021-12-01] MEDS: QUEtiapine FUMARATE 200 MG TABLET PO SCH (21:08)
[2021-12-01] MEDS: INSULIN LISPRO 100 UNITS/ML SQ PRN (21:20)
[2021-12-02 06:41] LABS: GLUCOMETER DEV NAME(LOC) BV2X.2; GLUCOSE,POINT OF CARE 109 MG/DL (70-110)
[2021-12-02] MEDS: ASPIRIN 81 MG CHEWABLE TABLET PO SCH (06:48)
[2021-12-02] MEDS: MetFORMIN HCL 500 MG TABLET PO SCH ×2 (06:48→16:33)
[2021-12-02] MEDS: LEVOTHYROXINE SODIUM 25 MCG TABLET PO SCH (06:48)
[2021-12-02] MEDS: TraMADol HCL 50 MG TABLET PO PRN ×3 (06:49→20:59)
[2021-12-02] MEDS: AmLODIPine BESYLATE 5 MG TABLET PO SCH (07:51)
[2021-12-02] MEDS: OMEGA-3/DHA/EPA/FISH OIL 1,000 MG CAPSULE PO SCH (07:51)
[2021-12-02] MEDS: MULTIVITAMINS WITH MINERALS, THERAPEUTIC TABLET PO SCH (07:52)
[2021-12-02] MEDS: LISINOPRIL 20 MG TABLET PO SCH (07:52)
[2021-12-02] MEDS: LinaGLIPtin 5 MG TABLET PO SCH (07:52)
[2021-12-02 08:31] VITALS: BP 131/62
[2021-12-02 11:56] LABS: GLUCOMETER DEV NAME(LOC) BV2X.2; GLUCOSE,POINT OF CARE 136 MG/DL (70-110)
[2021-12-02 16:13] VITALS: BP 148/69
[2021-12-02] MEDS: INSULIN LISPRO 100 UNITS/ML SQ PRN (16:38)
[2021-12-02 16:41] LABS: GLUCOMETER DEV NAME(LOC) BV2X.2; GLUCOSE,POINT OF CARE 182 MG/DL (70-110)
[2021-12-02 20:30] LABS: GLUCOMETER DEV NAME(LOC) BV2X.2; GLUCOSE,POINT OF CARE 121 MG/DL (70-110)
[2021-12-02 20:50] VITALS: BP 144/71
[2021-12-02] MEDS: QUEtiapine FUMARATE 200 MG TABLET PO SCH (20:59)
[2021-12-02] MEDS: ATORVASTATIN CALCIUM 20 MG TABLET PO SCH (20:59)
[2021-12-02] MEDS: TraZODone HCL 50 MG TABLET PO SCH (20:59)
[2021-12-03 00:23] VITALS: BP 108/66
[2021-12-03 06:26] LABS: GLUCOMETER DEV NAME(LOC) BV2X.2; GLUCOSE,POINT OF CARE 112 MG/DL (70-110)
[2021-12-03] MEDS: LEVOTHYROXINE SODIUM 25 MCG TABLET PO SCH (06:47)
[2021-12-03] MEDS: MetFORMIN HCL 500 MG TABLET PO SCH ×2 (06:48→16:12)
[2021-12-03] MEDS: ASPIRIN 81 MG CHEWABLE TABLET PO SCH (06:48)
[2021-12-03] MEDS: TraMADol HCL 50 MG TABLET PO PRN ×2 (06:57→21:11)
[2021-12-03 08:00] VITALS: BP 105/60
[2021-12-03] MEDS: MULTIVITAMINS WITH MINERALS, THERAPEUTIC TABLET PO SCH (08:29)
[2021-12-03] MEDS: OMEGA-3/DHA/EPA/FISH OIL 1,000 MG CAPSULE PO SCH (08:29)
[2021-12-03] MEDS: BusPIRone HCL 5 MG TABLET PO SCH ×3 (08:30→16:11)
[2021-12-03] MEDS: LinaGLIPtin 5 MG TABLET PO SCH (08:30)
[2021-12-03] MEDS: AmLODIPine BESYLATE 5 MG TABLET PO SCH ×2 (08:37→10:51)
[2021-12-03] MEDS: LISINOPRIL 20 MG TABLET PO SCH ×2 (08:37→10:51)
[2021-12-03 10:45] VITALS: BP 131/68
[2021-12-03 11:21] LABS: GLUCOMETER DEV NAME(LOC) BV2X.2; GLUCOSE,POINT OF CARE 101 MG/DL (70-110)
[2021-12-03 16:12] VITALS: BP 142/62
[2021-12-03] MEDS: INSULIN LISPRO 100 UNITS/ML SQ PRN ×2 (16:37→20:39)
[2021-12-03 16:46] LABS: GLUCOMETER DEV NAME(LOC) BV2X.2; GLUCOSE,POINT OF CARE 159 MG/DL (70-110)
[2021-12-03 20:51] LABS: GLUCOMETER DEV NAME(LOC) BV2X.2; GLUCOSE,POINT OF CARE 142 MG/DL (70-110)
[2021-12-03 21:11] VITALS: BP 139/70
[2021-12-03] MEDS: TraZODone HCL 50 MG TABLET PO SCH (21:11)
[2021-12-03] MEDS: QUEtiapine FUMARATE 200 MG TABLET PO SCH (21:11)
[2021-12-03] MEDS: ATORVASTATIN CALCIUM 20 MG TABLET PO SCH (21:11)
[2021-12-04 00:21] VITALS: BP 144/67
[2021-12-04] MEDS: LEVOTHYROXINE SODIUM 25 MCG TABLET PO SCH (06:29)
[2021-12-04] MEDS: MetFORMIN HCL 500 MG TABLET PO SCH ×2 (06:30→16:20)
[2021-12-04] MEDS: ASPIRIN 81 MG CHEWABLE TABLET PO SCH (06:30)
[2021-12-04 06:36] LABS: GLUCOMETER DEV NAME(LOC) BV2X.2; GLUCOSE,POINT OF CARE 118 MG/DL (70-110)
[2021-12-04] MEDS: TraMADol HCL 50 MG TABLET PO PRN ×4 (06:44→22:26)
[2021-12-04] MEDS: MULTIVITAMINS WITH MINERALS, THERAPEUTIC TABLET PO SCH (08:17)
[2021-12-04] MEDS: LISINOPRIL 20 MG TABLET PO SCH (08:17)
[2021-12-04] MEDS: AmLODIPine BESYLATE 5 MG TABLET PO SCH (08:17)
[2021-12-04] MEDS: OMEGA-3/DHA/EPA/FISH OIL 1,000 MG CAPSULE PO SCH (08:17)
[2021-12-04] MEDS: LinaGLIPtin 5 MG TABLET PO SCH (08:17)
[2021-12-04] MEDS: BusPIRone HCL 5 MG TABLET PO SCH ×3 (08:17→16:20)
[2021-12-04 08:34] VITALS: BP 129/61
[2021-12-04 11:16] LABS: GLUCOMETER DEV NAME(LOC) BV2X.2; GLUCOSE,POINT OF CARE 136 MG/DL (70-110)
[2021-12-04 12:01] LABS: GLUCOMETER DEV NAME(LOC) POC.BV
[2021-12-04 16:14] VITALS: BP 142/65
[2021-12-04] MEDS: INSULIN LISPRO 100 UNITS/ML SQ PRN ×2 (16:26→21:28)
[2021-12-04 16:47] LABS: GLUCOMETER DEV NAME(LOC) BV2X.2; GLUCOSE,POINT OF CARE 152 MG/DL (70-110)
[2021-12-04] MEDS: ATORVASTATIN CALCIUM 20 MG TABLET PO SCH (21:08)
[2021-12-04] MEDS: QUEtiapine FUMARATE 200 MG TABLET PO SCH (21:08)
[2021-12-04] MEDS: TraZODone HCL 50 MG TABLET PO SCH (21:09)
[2021-12-04 21:46] LABS: GLUCOMETER DEV NAME(LOC) BV2X.2; GLUCOSE,POINT OF CARE 159 MG/DL (70-110)
[2021-12-04 22:26] VITALS: BP 138/65
[2021-12-05 00:16] VITALS: BP 135/67
[2021-12-05] MEDS: LEVOTHYROXINE SODIUM 25 MCG TABLET PO SCH (06:36)
[2021-12-05] MEDS: MetFORMIN HCL 500 MG TABLET PO SCH ×2 (06:36→16:06)
[2021-12-05] MEDS: ASPIRIN 81 MG CHEWABLE TABLET PO SCH (06:37)
[2021-12-05] MEDS: TraMADol HCL 50 MG TABLET PO PRN ×3 (06:37→21:39)
[2021-12-05 07:06] LABS: GLUCOMETER DEV NAME(LOC) BV2X.2; GLUCOSE,POINT OF CARE 117 MG/DL (70-110)
[2021-12-05 08:24] VITALS: BP 146/76
[2021-12-05] MEDS: OMEGA-3/DHA/EPA/FISH OIL 1,000 MG CAPSULE PO SCH (08:26)
[2021-12-05] MEDS: BusPIRone HCL 5 MG TABLET PO SCH ×3 (08:26→16:06)
[2021-12-05] MEDS: MULTIVITAMINS WITH MINERALS, THERAPEUTIC TABLET PO SCH (08:26)
[2021-12-05] MEDS: LinaGLIPtin 5 MG TABLET PO SCH (08:26)
[2021-12-05] MEDS: LISINOPRIL 20 MG TABLET PO SCH (08:26)
[2021-12-05] MEDS: AmLODIPine BESYLATE 5 MG TABLET PO SCH (08:26)
[2021-12-05 11:41] LABS: GLUCOMETER DEV NAME(LOC) BV2X.2; GLUCOSE,POINT OF CARE 140 MG/DL (70-110)
[2021-12-05 16:15] VITALS: BP 126/65
[2021-12-05 16:30] LABS: GLUCOMETER DEV NAME(LOC) BV2X.2; GLUCOSE,POINT OF CARE 139 MG/DL (70-110)
[2021-12-05] MEDS: INSULIN LISPRO 100 UNITS/ML SQ PRN (20:28)
[2021-12-05 21:02] LABS: GLUCOMETER DEV NAME(LOC) BV2X.2; GLUCOSE,POINT OF CARE 190 MG/DL (70-110)
[2021-12-05] MEDS: QUEtiapine FUMARATE 200 MG TABLET PO SCH (21:15)
[2021-12-05] MEDS: TraZODone HCL 50 MG TABLET PO SCH (21:15)
[2021-12-05] MEDS: ATORVASTATIN CALCIUM 20 MG TABLET PO SCH (21:15)
[2021-12-05 21:39] VITALS: BP 140/65
[2021-12-06 00:26] VITALS: BP 135/63
[2021-12-06] MEDS: LEVOTHYROXINE SODIUM 25 MCG TABLET PO SCH (06:21)
[2021-12-06] MEDS: MetFORMIN HCL 500 MG TABLET PO SCH ×2 (06:34→16:19)
[2021-12-06] MEDS: ASPIRIN 81 MG CHEWABLE TABLET PO SCH (06:34)
[2021-12-06] MEDS: TraMADol HCL 50 MG TABLET PO PRN ×2 (06:34→21:34)
[2021-12-06 07:17] LABS: GLUCOMETER DEV NAME(LOC) BV2X.2; GLUCOSE,POINT OF CARE 129 MG/DL (70-110)
[2021-12-06 08:49] VITALS: BP 135/64
[2021-12-06] MEDS: BusPIRone HCL 5 MG TABLET PO SCH ×3 (08:54→16:19)
[2021-12-06] MEDS: MULTIVITAMINS WITH MINERALS, THERAPEUTIC TABLET PO SCH (08:55)
[2021-12-06] MEDS: LISINOPRIL 20 MG TABLET PO SCH (08:55)
[2021-12-06] MEDS: OMEGA-3/DHA/EPA/FISH OIL 1,000 MG CAPSULE PO SCH (08:55)
[2021-12-06] MEDS: AmLODIPine BESYLATE 5 MG TABLET PO SCH (08:55)
[2021-12-06] MEDS: LinaGLIPtin 5 MG TABLET PO SCH (08:55)
[2021-12-06 11:15] LABS: GLUCOMETER DEV NAME(LOC) BV2X.2; GLUCOSE,POINT OF CARE 122 MG/DL (70-110)
[2021-12-06 16:17] VITALS: BP 123/65
[2021-12-06 16:20] LABS: GLUCOMETER DEV NAME(LOC) BV2X.2; GLUCOSE,POINT OF CARE 144 MG/DL (70-110)
[2021-12-06] MEDS: INSULIN LISPRO 100 UNITS/ML SQ PRN ×2 (16:22→20:09)
[2021-12-06] MEDS: TraZODone HCL 50 MG TABLET PO SCH (20:06)
[2021-12-06] MEDS: ATORVASTATIN CALCIUM 20 MG TABLET PO SCH (20:06)
[2021-12-06] MEDS: QUEtiapine FUMARATE 200 MG TABLET PO SCH (20:06)
[2021-12-06 20:21] LABS: GLUCOMETER DEV NAME(LOC) BV2X.2; GLUCOSE,POINT OF CARE 203 MG/DL (70-110)
[2021-12-07] MEDS: LEVOTHYROXINE SODIUM 25 MCG TABLET PO SCH (06:33)
[2021-12-07] MEDS: MetFORMIN HCL 500 MG TABLET PO SCH (06:33)
[2021-12-07] MEDS: ASPIRIN 81 MG CHEWABLE TABLET PO SCH (06:33)
[2021-12-07 06:44] VITALS: BP 146/80
[2021-12-07 07:32] LABS: GLUCOMETER DEV NAME(LOC) BV2X.2; GLUCOSE,POINT OF CARE 109 MG/DL (70-110)
[2021-12-07 08:41] VITALS: BP 142/67
[2021-12-07] MEDS: MULTIVITAMINS WITH MINERALS, THERAPEUTIC TABLET PO SCH (08:49)
[2021-12-07] MEDS: OMEGA-3/DHA/EPA/FISH OIL 1,000 MG CAPSULE PO SCH (08:49)
[2021-12-07] MEDS: LISINOPRIL 20 MG TABLET PO SCH (08:49)
[2021-12-07] MEDS: AmLODIPine BESYLATE 5 MG TABLET PO SCH (08:49)
[2021-12-07] MEDS: LinaGLIPtin 5 MG TABLET PO SCH (08:49)
[2021-12-07] MEDS: BusPIRone HCL 5 MG TABLET PO SCH (08:49)
[2021-12-07] MEDS ORDERED: BUSP5TAB20 PO (08:52)
[2021-12-07] MEDS ORDERED: LEVO25TA9 PO (08:56)
[2021-12-07] MEDS ORDERED: LINA5TAB PO (08:58)
[2021-12-07] MEDS ORDERED: AMLO-257 PO (08:59)
[2021-12-07 11:11] LABS: GLUCOMETER DEV NAME(LOC) BV2X.2; GLUCOSE,POINT OF CARE 125 MG/DL (70-110)
[2021-12-07] MEDS ORDERED: AMLO5TAB66 PO (22:41)
[2021-12-07] MEDS ORDERED: ATOR20TA65 PO (22:41)
[2021-12-07] MEDS ORDERED: METF-446 PO (22:41)
[2021-12-07] MEDS ORDERED: ASPI81TA87 PO (22:41)
[2021-12-07] MEDS ORDERED: LEVO50CA4 PO (22:41)
[2021-12-07] MEDS ORDERED: SITA25 PO (22:41)
[2021-12-07] MEDS ORDERED: LISI-662 PO (22:41)
== END 2021-12-07 12:29 | disposition home or self-care (01) | DRG 881 ==
LOC: B2X 21:17 → B2S 11-27 12:51 → B2X 11-28 09:45
PROVIDERS: ADMIT Psychiatry & Neurology Psychiatry; ATTEND Psychiatry & Neurology Psychiatry
DX: F32.9 Major depressive disorder, single episode, unspecified (principal); U07.1 COVID-19; N18.9 Chronic kidney disease, unspecified; R45.851 Suicidal ideations; F10.10 Alcohol abuse, uncomplicated; Y90.9 Presence of alcohol in blood, level not specified; F14.90 Cocaine use, unspecified, uncomplicated; F12.90 Cannabis use, unspecified, uncomplicated; E78.5 Hyperlipidemia, unspecified; D64.9 Anemia, unspecified; E11.42 Type 2 diabetes mellitus with diabetic polyneuropathy; M54.9 Dorsalgia, unspecified; E03.9 Hypothyroidism, unspecified; F22 Delusional disorders; M16.10 Unilateral primary osteoarthritis, unspecified hip; I25.10 Atherosclerotic heart disease of native coronary artery without angina pectoris; I12.9 Hypertensive chronic kidney disease with stage 1 through stage 4 chronic kidney disease, or unspecified chronic kidney disease; E11.22 Type 2 diabetes mellitus with diabetic chronic kidney disease; Z91.19 Patient's noncompliance with other medical treatment and regimen
CPT/HCPCS: 73502; 80053; 80061; 82962; 83036; 84439; 84443; 85025; 87081; G0480; Q9967

== ENCOUNTER 2022-03-13 20:18 | Inpatient (IN) | payer MEDICARE, MEDICAID ==
[~2022-03-13] VITALS: Ht 167.6 cm; Wt 112.1 kg
[~2022-03-13 20:18] MED LIST changes: +AMLO5TAB66 PO; -ATOR40TA28 PO; +BUSP5TAB20 PO; +LEVO25TA9 PO; -LEVO50 PO; +LEVO50CA4 PO; +LINA5TAB PO; -LISI-894 PO; +METF-446 PO; -OMEG-108 PO; +OMEG-135 PO; +SITA25 PO
[2022-03-13] MEDS ORDERED: LORazepam 2 MG TABLET PO PRN (21:00)
[2022-03-13] MEDS ORDERED: ZOLPIDEM TARTRATE 10 MG TABLET PO PRN (21:00)
[2022-03-13] MEDS ORDERED: HALOPERIDOL 5 MG TABLET PO PRN (21:00)
[2022-03-13 21:15] VITALS: BP 137/88
[2022-03-13 21:16] LABS: GLUCOMETER DEV NAME(LOC) POC.BV
[2022-03-13 22:15] VITALS: BP 105/67
[2022-03-13] MEDS ORDERED: GLUCAGON,HUMAN RECOMBINANT 1 MG VIAL IM PRN (22:15)
[2022-03-13 23:15] VITALS: BP 128/66
[2022-03-14] MEDS ORDERED: CYANOCOBALAMIN 1,000 MCG/ML VIAL IM ONE (00:15)
[2022-03-14] MEDS ORDERED: IBUPROFEN 400 MG TABLET PO PRN (00:15)
[2022-03-14] MEDS ORDERED: -PHARMACY VACCINE NOTE- MISC ONE (01:15)
[2022-03-14 01:55] VITALS: BP 144/81
[2022-03-14] MEDS: LEVOTHYROXINE SODIUM 25 MCG TABLET PO SCH (06:31)
[2022-03-14] MEDS: INSULIN LISPRO 100 UNITS/ML SQ PRN ×4 (06:38→20:43)
[2022-03-14 06:41] LABS: GLUCOMETER DEV NAME(LOC) BV2S.; GLUCOSE,POINT OF CARE 178 MG/DL (70-110)
[2022-03-14] MEDS: ASPIRIN 81 MG CHEWABLE TABLET PO SCH (06:49)
[2022-03-14] MEDS: MetFORMIN HCL 500 MG TABLET PO SCH ×2 (06:50→17:07)
[2022-03-14 07:19] LABS: BASOPHILS % (AUTO) 0.6 % (0.0-2.0); EOSINOPHILS % (AUTO) 1.8 % (1.0-6.0); HEMATOCRIT 30.2 % (41-53); HEMOGLOBIN 9.2 g/dL (13.5-17.5); LYMPHOCYTES % (AUTO) 28.8 % (22.0-44.0); MEAN CORPUSCULAR HEMOGLOBIN 18.7 pg (26.0-34.0); MEAN CORPUSCULAR HGB CONC 30.5 G/dL (31.0-37.0); MEAN CORPUSCULAR VOLUME 61 fL (80-100); MONOCYTES # (AUTO) 0.4 K/uL (0.1-1.0); NEUTROPHILS # (AUTO) 2.1 K/uL (1.8-7.7); NEUTROPHILS % (AUTO) 56.8 % (40.0-70.0); PLATELET COUNT (AUTO) 172 K/uL (150-450); RED BLOOD CELL COUNT(AUTO) 4.93 MIL/uL (4.50-5.90); RED CELL DISTRIBUTION WIDTH 22.6 % (11.5-14.5)
[2022-03-14 07:26] LABS: HEMOGLOBIN A1C 8.1 % (3.8-5.6)
[2022-03-14 07:47] LABS: ALANINE AMINOTRANSFERASE 20 U/L (12-78); ALBUMIN 3.2 g/dL (3.4-5.0); ALKALINE PHOSPHATASE 91 U/L (46-116); ANION GAP 9 mmol/L (8-16); ASPARTATE AMINOTRANSFERASE 21 U/L (15-37); BILIRUBIN,TOTAL 0.3 mg/dL (0.1-1.0); CALCIUM, TOTAL 7.9 mg/dL (8.8-10.5); CARBON DIOXIDE 30 mmol/L (22-29); CHLORIDE 100 mmol/L (98-107); CHOL/HDL RATIO 2.9 (4.2-7.3); CHOLESTEROL 244 mg/dL (131-200); CREATININE 0.67 mg/dL (0.60-1.30); FREE T4 (FREE THYROXINE) 0.76 ng/dL (0.76-1.46); GLOMERULAR FILTR. RATE CALC > 60 mL/min (>60); GLUCOSE,RANDOM 187 mg/dL (70-110); HDL CHOLESTEROL 85 mg/dL (40-60); LDL CHOL (CALC.) 128 mg/dL (0-130); POTASSIUM 3.1 mmol/L (3.5-5.1); SODIUM SERUM 139 mmol/L (136-145); THYROID STIMULATING HORMONE 5.17 uIU/mL (0.36-3.74); TOTAL PROTEIN, SERUM 6.5 g/dL (6.4-8.2); TRIGLYCERIDES 154 mg/dL (15-150); UREA NITROGEN, BLOOD 12 mg/dL (7-18)
[2022-03-14] MEDS: FOLIC ACID 1 MG TABLET PO SCH (08:08)
[2022-03-14] MEDS: PANTOPRAZOLE SODIUM 40 MG DR TABLET PO SCH (08:08)
[2022-03-14] MEDS: LinaGLIPtin 5 MG TABLET PO SCH (08:08)
[2022-03-14] MEDS: AmLODIPine BESYLATE 5 MG TABLET PO SCH (08:08)
[2022-03-14] MEDS: THIAMINE 100 MG TABLET PO SCH (08:09)
[2022-03-14] MEDS: LISINOPRIL 10 MG TABLET PO SCH (08:09)
[2022-03-14] MEDS: OMEGA-3/DHA/EPA/FISH OIL 1,000 MG CAPSULE PO SCH (08:09)
[2022-03-14 08:31] VITALS: BP 123/67
[2022-03-14] MEDS ORDERED: LISINOPRIL 20 MG TABLET PO SCH (09:00)
[2022-03-14 11:29] LABS: GLUCOMETER DEV NAME(LOC) BV2S.; GLUCOSE,POINT OF CARE 190 MG/DL (70-110)
[2022-03-14] MEDS ORDERED: POTASSIUM CHLORIDE 20 MEQ ER TABLET PO ONE (15:30)
[2022-03-14 16:30] VITALS: BP 135/90
[2022-03-14 16:36] LABS: GLUCOMETER DEV NAME(LOC) BV2S.; GLUCOSE,POINT OF CARE 161 MG/DL (70-110)
[2022-03-14] MEDS: BusPIRone HCL 5 MG TABLET PO SCH (17:07)
[2022-03-14 20:30] VITALS: BP 149/88
[2022-03-14 20:56] LABS: GLUCOMETER DEV NAME(LOC) BV2S.; GLUCOSE,POINT OF CARE 174 MG/DL (70-110)
[2022-03-14] MEDS: ATORVASTATIN CALCIUM 20 MG TABLET PO SCH (21:47)
[2022-03-14] MEDS: TraZODone HCL 50 MG TABLET PO SCH (21:47)
[2022-03-14] MEDS: QUEtiapine FUMARATE 200 MG TABLET PO SCH (21:48)
[2022-03-15 00:30] VITALS: BP 140/86
[2022-03-15] MEDS: INSULIN LISPRO 100 UNITS/ML SQ PRN ×4 (06:30→20:41)
[2022-03-15] MEDS: LEVOTHYROXINE SODIUM 25 MCG TABLET PO SCH (06:31)
[2022-03-15 06:35] LABS: GLUCOMETER DEV NAME(LOC) BV2S.; GLUCOSE,POINT OF CARE 168 MG/DL (70-110)
[2022-03-15] MEDS: ASPIRIN 81 MG CHEWABLE TABLET PO SCH (06:40)
[2022-03-15] MEDS: MetFORMIN HCL 500 MG TABLET PO SCH ×2 (06:41→16:53)
[2022-03-15 08:14] VITALS: BP 133/73
[2022-03-15] MEDS: LinaGLIPtin 5 MG TABLET PO SCH (08:57)
[2022-03-15] MEDS: FOLIC ACID 1 MG TABLET PO SCH (08:57)
[2022-03-15] MEDS: BusPIRone HCL 5 MG TABLET PO SCH ×3 (08:57→16:53)
[2022-03-15] MEDS: AmLODIPine BESYLATE 5 MG TABLET PO SCH (08:57)
[2022-03-15] MEDS: LISINOPRIL 10 MG TABLET PO SCH (08:57)
[2022-03-15] MEDS: THIAMINE 100 MG TABLET PO SCH (08:57)
[2022-03-15] MEDS: OMEGA-3/DHA/EPA/FISH OIL 1,000 MG CAPSULE PO SCH (08:58)
[2022-03-15] MEDS: PANTOPRAZOLE SODIUM 40 MG DR TABLET PO SCH (08:58)
[2022-03-15 12:06] LABS: GLUCOMETER DEV NAME(LOC) BV2S.; GLUCOSE,POINT OF CARE 163 MG/DL (70-110)
[2022-03-15 16:51] LABS: GLUCOMETER DEV NAME(LOC) BV2S.; GLUCOSE,POINT OF CARE 141 MG/DL (70-110)
[2022-03-15 20:21] LABS: GLUCOMETER DEV NAME(LOC) BV2S.; GLUCOSE,POINT OF CARE 164 MG/DL (70-110)
[2022-03-15] MEDS: ATORVASTATIN CALCIUM 20 MG TABLET PO SCH (21:43)
[2022-03-15] MEDS: QUEtiapine FUMARATE 200 MG TABLET PO SCH (21:44)
[2022-03-15] MEDS: TraZODone HCL 50 MG TABLET PO SCH (21:44)
[2022-03-15 21:53] VITALS: BP 128/81
[2022-03-15] MEDS ORDERED: QUEtiapine FUMARATE 200 MG TABLET PO ONE (22:00)
[2022-03-16 06:51] LABS: GLUCOMETER DEV NAME(LOC) BV2S.; GLUCOSE,POINT OF CARE 157 MG/DL (70-110)
[2022-03-16] MEDS: INSULIN LISPRO 100 UNITS/ML SQ PRN ×2 (06:52→20:54)
[2022-03-16] MEDS: LEVOTHYROXINE SODIUM 25 MCG TABLET PO SCH (06:52)
[2022-03-16] MEDS: MetFORMIN HCL 500 MG TABLET PO SCH ×2 (07:08→16:42)
[2022-03-16] MEDS: ASPIRIN 81 MG CHEWABLE TABLET PO SCH (07:09)
[2022-03-16 08:52] VITALS: BP 130/61
[2022-03-16] MEDS: LISINOPRIL 10 MG TABLET PO SCH (09:09)
[2022-03-16] MEDS: AmLODIPine BESYLATE 5 MG TABLET PO SCH (09:09)
[2022-03-16] MEDS: LinaGLIPtin 5 MG TABLET PO SCH (09:09)
[2022-03-16] MEDS: PANTOPRAZOLE SODIUM 40 MG DR TABLET PO SCH (09:09)
[2022-03-16] MEDS: BusPIRone HCL 5 MG TABLET PO SCH ×3 (09:09→16:42)
[2022-03-16] MEDS: FOLIC ACID 1 MG TABLET PO SCH (09:09)
[2022-03-16] MEDS: OMEGA-3/DHA/EPA/FISH OIL 1,000 MG CAPSULE PO SCH (09:09)
[2022-03-16] MEDS: THIAMINE 100 MG TABLET PO SCH (09:09)
[2022-03-16 12:06] LABS: GLUCOMETER DEV NAME(LOC) BV2S.; GLUCOSE,POINT OF CARE 124 MG/DL (70-110)
[2022-03-16 16:31] LABS: GLUCOMETER DEV NAME(LOC) BV2S.; GLUCOSE,POINT OF CARE 124 MG/DL (70-110)
[2022-03-16 20:26] LABS: GLUCOMETER DEV NAME(LOC) BV2S.; GLUCOSE,POINT OF CARE 147 MG/DL (70-110)
[2022-03-16] MEDS ORDERED: QUEtiapine FUMARATE 200 MG TABLET PO SCH (21:00)
[2022-03-16] MEDS: QUEtiapine FUMARATE 300 MG TABLET PO SCH (21:46)
[2022-03-16] MEDS: TraZODone HCL 50 MG TABLET PO SCH (21:46)
[2022-03-16] MEDS: ATORVASTATIN CALCIUM 20 MG TABLET PO SCH (21:46)
[2022-03-16 21:50] VITALS: BP 144/77
[2022-03-17] MEDS: MetFORMIN HCL 500 MG TABLET PO SCH ×2 (06:10→16:35)
[2022-03-17] MEDS: LEVOTHYROXINE SODIUM 25 MCG TABLET PO SCH (06:10)
[2022-03-17] MEDS: ASPIRIN 81 MG CHEWABLE TABLET PO SCH (06:10)
[2022-03-17] MEDS: INSULIN LISPRO 100 UNITS/ML SQ PRN ×3 (06:23→20:53)
[2022-03-17 06:26] LABS: GLUCOMETER DEV NAME(LOC) BV2S.; GLUCOSE,POINT OF CARE 149 MG/DL (70-110)
[2022-03-17 07:56] LABS: ANION GAP 7 mmol/L (8-16); CALCIUM, TOTAL 8.7 mg/dL (8.8-10.5); CARBON DIOXIDE 31 mmol/L (22-29); CHLORIDE 99 mmol/L (98-107); CREATININE 0.79 mg/dL (0.60-1.30); GLUCOSE,RANDOM 145 mg/dL (70-110); POTASSIUM 3.5 mmol/L (3.5-5.1); SODIUM SERUM 137 mmol/L (136-145); UREA NITROGEN, BLOOD 10 mg/dL (7-18)
[2022-03-17 08:00] VITALS: BP 143/67
[2022-03-17 08:07] LABS: GLOMERULAR FILTR. RATE CALC > 60 mL/min (>60)
[2022-03-17] MEDS: PANTOPRAZOLE SODIUM 40 MG DR TABLET PO SCH (08:41)
[2022-03-17] MEDS: AmLODIPine BESYLATE 5 MG TABLET PO SCH (08:41)
[2022-03-17] MEDS: LISINOPRIL 10 MG TABLET PO SCH (08:41)
[2022-03-17] MEDS: THIAMINE 100 MG TABLET PO SCH (08:41)
[2022-03-17] MEDS: BusPIRone HCL 5 MG TABLET PO SCH ×3 (08:41→16:35)
[2022-03-17] MEDS: OMEGA-3/DHA/EPA/FISH OIL 1,000 MG CAPSULE PO SCH (08:41)
[2022-03-17] MEDS: FOLIC ACID 1 MG TABLET PO SCH (08:41)
[2022-03-17] MEDS: LinaGLIPtin 5 MG TABLET PO SCH (08:41)
[2022-03-17 11:25] LABS: GLUCOMETER DEV NAME(LOC) BV2S.; GLUCOSE,POINT OF CARE 125 MG/DL (70-110)
[2022-03-17 16:17] VITALS: BP 171/90
[2022-03-17] MEDS: CloNIDine HCL 0.1 MG TABLET PO PRN (16:17)
[2022-03-17 16:26] LABS: GLUCOMETER DEV NAME(LOC) BV2S.; GLUCOSE,POINT OF CARE 154 MG/DL (70-110)
[2022-03-17 17:33] VITALS: BP 144/81
[2022-03-17 20:09] VITALS: BP 144/81
[2022-03-17 20:36] LABS: GLUCOMETER DEV NAME(LOC) BV2S.; GLUCOSE,POINT OF CARE 174 MG/DL (70-110)
[2022-03-17] MEDS: TraZODone HCL 50 MG TABLET PO SCH (21:48)
[2022-03-17] MEDS: QUEtiapine FUMARATE 300 MG TABLET PO SCH (21:48)
[2022-03-17] MEDS: ATORVASTATIN CALCIUM 20 MG TABLET PO SCH (21:49)
[2022-03-18] MEDS: LEVOTHYROXINE SODIUM 25 MCG TABLET PO SCH (06:18)
[2022-03-18] MEDS: MetFORMIN HCL 500 MG TABLET PO SCH ×2 (06:19→16:29)
[2022-03-18] MEDS: INSULIN LISPRO 100 UNITS/ML SQ PRN (06:33)
[2022-03-18 06:41] LABS: GLUCOMETER DEV NAME(LOC) BV2S.; GLUCOSE,POINT OF CARE 162 MG/DL (70-110)
[2022-03-18] MEDS: ASPIRIN 81 MG CHEWABLE TABLET PO SCH (07:15)
[2022-03-18 09:17] LABS: GLUCOMETER DEV NAME(LOC) POC.BV
[2022-03-18] MEDS: FOLIC ACID 1 MG TABLET PO SCH (10:05)
[2022-03-18] MEDS: BusPIRone HCL 5 MG TABLET PO SCH ×3 (10:05→16:29)
[2022-03-18] MEDS: AmLODIPine BESYLATE 5 MG TABLET PO SCH (10:06)
[2022-03-18] MEDS: PANTOPRAZOLE SODIUM 40 MG DR TABLET PO SCH (10:06)
[2022-03-18] MEDS: LISINOPRIL 20 MG TABLET PO SCH (10:06)
[2022-03-18] MEDS: OMEGA-3/DHA/EPA/FISH OIL 1,000 MG CAPSULE PO SCH (10:06)
[2022-03-18] MEDS: LinaGLIPtin 5 MG TABLET PO SCH (10:06)
[2022-03-18] MEDS: THIAMINE 100 MG TABLET PO SCH (10:08)
[2022-03-18 11:16] LABS: GLUCOMETER DEV NAME(LOC) BV2S.; GLUCOSE,POINT OF CARE 104 MG/DL (70-110)
[2022-03-18 12:00] VITALS: BP 130/72
[2022-03-18 16:26] LABS: GLUCOMETER DEV NAME(LOC) BV2S.; GLUCOSE,POINT OF CARE 125 MG/DL (70-110)
[2022-03-18 20:18] VITALS: BP 144/79
[2022-03-18 20:21] LABS: GLUCOMETER DEV NAME(LOC) BV2S.; GLUCOSE,POINT OF CARE 139 MG/DL (70-110)
[2022-03-18] MEDS: QUEtiapine FUMARATE 300 MG TABLET PO SCH (21:45)
[2022-03-18] MEDS: TraZODone HCL 50 MG TABLET PO SCH (21:45)
[2022-03-18] MEDS: ATORVASTATIN CALCIUM 20 MG TABLET PO SCH (21:45)
[2022-03-19 06:27] LABS: GLUCOMETER DEV NAME(LOC) BV2S.; GLUCOSE,POINT OF CARE 121 MG/DL (70-110)
[2022-03-19] MEDS: ASPIRIN 81 MG CHEWABLE TABLET PO SCH (06:57)
[2022-03-19] MEDS: MetFORMIN HCL 500 MG TABLET PO SCH ×2 (06:57→16:45)
[2022-03-19] MEDS: LEVOTHYROXINE SODIUM 25 MCG TABLET PO SCH (06:57)
[2022-03-19 08:29] VITALS: BP 133/61
[2022-03-19] MEDS: LISINOPRIL 20 MG TABLET PO SCH (09:04)
[2022-03-19] MEDS: AmLODIPine BESYLATE 5 MG TABLET PO SCH (09:04)
[2022-03-19] MEDS: BusPIRone HCL 5 MG TABLET PO SCH ×3 (09:04→16:45)
[2022-03-19] MEDS: LinaGLIPtin 5 MG TABLET PO SCH (09:04)
[2022-03-19] MEDS: PANTOPRAZOLE SODIUM 40 MG DR TABLET PO SCH (09:04)
[2022-03-19] MEDS: OMEGA-3/DHA/EPA/FISH OIL 1,000 MG CAPSULE PO SCH (09:04)
[2022-03-19] MEDS: FOLIC ACID 1 MG TABLET PO SCH (09:04)
[2022-03-19] MEDS: THIAMINE 100 MG TABLET PO SCH (09:04)
[2022-03-19 12:06] LABS: GLUCOMETER DEV NAME(LOC) BV2S.; GLUCOSE,POINT OF CARE 122 MG/DL (70-110)
[2022-03-19 17:11] LABS: GLUCOMETER DEV NAME(LOC) BV2S.; GLUCOSE,POINT OF CARE 135 MG/DL (70-110)
[2022-03-19 19:43] VITALS: BP 133/61
[2022-03-19 20:10] VITALS: BP 142/78
[2022-03-19] MEDS: INSULIN LISPRO 100 UNITS/ML SQ PRN (21:13)
[2022-03-19] MEDS: QUEtiapine FUMARATE 300 MG TABLET PO SCH (21:29)
[2022-03-19] MEDS: TraZODone HCL 50 MG TABLET PO SCH (21:29)
[2022-03-19] MEDS: ATORVASTATIN CALCIUM 20 MG TABLET PO SCH (21:29)
[2022-03-19 21:40] LABS: GLUCOMETER DEV NAME(LOC) BV2S.; GLUCOSE,POINT OF CARE 143 MG/DL (70-110)
[2022-03-20] MEDS: LEVOTHYROXINE SODIUM 25 MCG TABLET PO SCH (06:41)
[2022-03-20] MEDS: ASPIRIN 81 MG CHEWABLE TABLET PO SCH (07:02)
[2022-03-20] MEDS: MetFORMIN HCL 500 MG TABLET PO SCH ×2 (07:02→16:52)
[2022-03-20] MEDS: FOLIC ACID 1 MG TABLET PO SCH (08:24)
[2022-03-20] MEDS: LinaGLIPtin 5 MG TABLET PO SCH (08:24)
[2022-03-20] MEDS: BusPIRone HCL 5 MG TABLET PO SCH ×3 (08:24→16:52)
[2022-03-20] MEDS: PANTOPRAZOLE SODIUM 40 MG DR TABLET PO SCH (08:24)
[2022-03-20] MEDS: LISINOPRIL 20 MG TABLET PO SCH (08:24)
[2022-03-20] MEDS: AmLODIPine BESYLATE 5 MG TABLET PO SCH (08:24)
[2022-03-20] MEDS: OMEGA-3/DHA/EPA/FISH OIL 1,000 MG CAPSULE PO SCH (08:24)
[2022-03-20] MEDS: THIAMINE 100 MG TABLET PO SCH (08:24)
[2022-03-20 08:47] VITALS: BP 126/68
[2022-03-20 11:51] LABS: GLUCOMETER DEV NAME(LOC) BV2S.; GLUCOSE,POINT OF CARE 82 MG/DL (70-110)
[2022-03-20] MEDS: INSULIN LISPRO 100 UNITS/ML SQ PRN (16:57)
[2022-03-20 17:01] LABS: GLUCOMETER DEV NAME(LOC) BV2S.; GLUCOSE,POINT OF CARE 163 MG/DL (70-110)
[2022-03-20 20:13] VITALS: BP 169/71
[2022-03-20 20:23] VITALS: BP 152/67
[2022-03-20] MEDS: TraZODone HCL 50 MG TABLET PO SCH (21:01)
[2022-03-20] MEDS: ATORVASTATIN CALCIUM 20 MG TABLET PO SCH (21:01)
[2022-03-20] MEDS: QUEtiapine FUMARATE 300 MG TABLET PO SCH (21:01)
[2022-03-20 21:06] LABS: GLUCOMETER DEV NAME(LOC) BV2S.; GLUCOSE,POINT OF CARE 129 MG/DL (70-110)
[2022-03-21] MEDS: LEVOTHYROXINE SODIUM 25 MCG TABLET PO SCH (06:38)
[2022-03-21] MEDS: ASPIRIN 81 MG CHEWABLE TABLET PO SCH (06:39)
[2022-03-21] MEDS: MetFORMIN HCL 500 MG TABLET PO SCH ×2 (06:39→16:51)
[2022-03-21 06:51] LABS: GLUCOMETER DEV NAME(LOC) BV2X.2; GLUCOSE,POINT OF CARE 122 MG/DL (70-110)
[2022-03-21] MEDS: LISINOPRIL 20 MG TABLET PO SCH (08:08)
[2022-03-21] MEDS: OMEGA-3/DHA/EPA/FISH OIL 1,000 MG CAPSULE PO SCH (08:08)
[2022-03-21] MEDS: PANTOPRAZOLE SODIUM 40 MG DR TABLET PO SCH (08:08)
[2022-03-21] MEDS: LinaGLIPtin 5 MG TABLET PO SCH (08:09)
[2022-03-21] MEDS: FOLIC ACID 1 MG TABLET PO SCH (08:09)
[2022-03-21] MEDS: BusPIRone HCL 5 MG TABLET PO SCH ×3 (08:09→16:51)
[2022-03-21] MEDS: THIAMINE 100 MG TABLET PO SCH (08:09)
[2022-03-21] MEDS: AmLODIPine BESYLATE 5 MG TABLET PO SCH (08:09)
[2022-03-21 08:30] VITALS: BP 140/70
[2022-03-21 11:46] LABS: GLUCOMETER DEV NAME(LOC) BV2S.; GLUCOSE,POINT OF CARE 108 MG/DL (70-110)
[2022-03-21 16:09] VITALS: BP 149/75
[2022-03-21 16:22] LABS: GLUCOMETER DEV NAME(LOC) BV2S.; GLUCOSE,POINT OF CARE 136 MG/DL (70-110)
[2022-03-21 20:22] LABS: GLUCOMETER DEV NAME(LOC) BV2S.; GLUCOSE,POINT OF CARE 137 MG/DL (70-110)
[2022-03-21 20:57] VITALS: BP 146/77
[2022-03-21] MEDS: ATORVASTATIN CALCIUM 20 MG TABLET PO SCH (21:38)
[2022-03-21] MEDS: QUEtiapine FUMARATE 300 MG TABLET PO SCH (21:38)
[2022-03-21] MEDS: TraZODone HCL 50 MG TABLET PO SCH (21:38)
[2022-03-22 06:26] LABS: GLUCOMETER DEV NAME(LOC) BV2X.2; GLUCOSE,POINT OF CARE 136 MG/DL (70-110)
[2022-03-22] MEDS: LEVOTHYROXINE SODIUM 25 MCG TABLET PO SCH (06:49)
[2022-03-22] MEDS: ASPIRIN 81 MG CHEWABLE TABLET PO SCH (06:49)
[2022-03-22] MEDS: MetFORMIN HCL 500 MG TABLET PO SCH ×2 (06:49→16:12)
[2022-03-22 08:00] VITALS: BP 130/68
[2022-03-22] MEDS: AmLODIPine BESYLATE 5 MG TABLET PO SCH (08:15)
[2022-03-22] MEDS: LISINOPRIL 20 MG TABLET PO SCH (08:15)
[2022-03-22] MEDS: OMEGA-3/DHA/EPA/FISH OIL 1,000 MG CAPSULE PO SCH (08:15)
[2022-03-22] MEDS: BusPIRone HCL 5 MG TABLET PO SCH ×3 (08:15→16:12)
[2022-03-22] MEDS: PANTOPRAZOLE SODIUM 40 MG DR TABLET PO SCH (08:15)
[2022-03-22] MEDS: FOLIC ACID 1 MG TABLET PO SCH (08:15)
[2022-03-22] MEDS: THIAMINE 100 MG TABLET PO SCH (08:15)
[2022-03-22] MEDS: LinaGLIPtin 5 MG TABLET PO SCH (08:16)
[2022-03-22 12:07] LABS: GLUCOMETER DEV NAME(LOC) BV2X.2; GLUCOSE,POINT OF CARE 103 MG/DL (70-110)
[2022-03-22] MEDS: INSULIN LISPRO 100 UNITS/ML SQ PRN (16:21)
[2022-03-22 16:46] LABS: GLUCOMETER DEV NAME(LOC) BV2X.2; GLUCOSE,POINT OF CARE 153 MG/DL (70-110)
[2022-03-22] MEDS: CloNIDine HCL 0.1 MG TABLET PO PRN (19:40)
[2022-03-22 19:44] VITALS: BP 178/81
[2022-03-22 20:44] VITALS: BP 138/82
[2022-03-22] MEDS: ATORVASTATIN CALCIUM 20 MG TABLET PO SCH (21:27)
[2022-03-22] MEDS: QUEtiapine FUMARATE 300 MG TABLET PO SCH (21:27)
[2022-03-22] MEDS: TraZODone HCL 50 MG TABLET PO SCH (21:27)
[2022-03-23 06:41] LABS: GLUCOMETER DEV NAME(LOC) BV2X.2; GLUCOSE,POINT OF CARE 122 MG/DL (70-110)
[2022-03-23] MEDS: ASPIRIN 81 MG CHEWABLE TABLET PO SCH (06:43)
[2022-03-23] MEDS: MetFORMIN HCL 500 MG TABLET PO SCH ×2 (06:43→17:08)
[2022-03-23] MEDS: LEVOTHYROXINE SODIUM 25 MCG TABLET PO SCH (06:43)
[2022-03-23] MEDS: OMEGA-3/DHA/EPA/FISH OIL 1,000 MG CAPSULE PO SCH (08:30)
[2022-03-23] MEDS: THIAMINE 100 MG TABLET PO SCH (08:30)
[2022-03-23] MEDS: LISINOPRIL 20 MG TABLET PO SCH (08:30)
[2022-03-23] MEDS: BusPIRone HCL 5 MG TABLET PO SCH ×3 (08:30→17:08)
[2022-03-23] MEDS: LinaGLIPtin 5 MG TABLET PO SCH (08:30)
[2022-03-23] MEDS: PANTOPRAZOLE SODIUM 40 MG DR TABLET PO SCH (08:30)
[2022-03-23] MEDS: FOLIC ACID 1 MG TABLET PO SCH (08:30)
[2022-03-23] MEDS: AmLODIPine BESYLATE 5 MG TABLET PO SCH (08:36)
[2022-03-23 08:38] VITALS: BP 126/61
[2022-03-23 12:06] LABS: GLUCOMETER DEV NAME(LOC) BV2X.2; GLUCOSE,POINT OF CARE 95 MG/DL (70-110)
[2022-03-23 17:06] LABS: GLUCOMETER DEV NAME(LOC) BV2X.2; GLUCOSE,POINT OF CARE 151 MG/DL (70-110)
[2022-03-23] MEDS: INSULIN LISPRO 100 UNITS/ML SQ PRN (17:07)
[2022-03-23 20:45] VITALS: BP 157/88
[2022-03-23] MEDS: ATORVASTATIN CALCIUM 20 MG TABLET PO SCH (21:40)
[2022-03-23] MEDS: QUEtiapine FUMARATE 300 MG TABLET PO SCH (21:40)
[2022-03-23] MEDS: TraZODone HCL 50 MG TABLET PO SCH (21:40)
[2022-03-24] MEDS: LEVOTHYROXINE SODIUM 25 MCG TABLET PO SCH (06:29)
[2022-03-24 06:35] LABS: GLUCOMETER DEV NAME(LOC) BV2X.2; GLUCOSE,POINT OF CARE 134 MG/DL (70-110)
[2022-03-24] MEDS: MetFORMIN HCL 500 MG TABLET PO SCH ×2 (06:43→16:44)
[2022-03-24] MEDS: ASPIRIN 81 MG CHEWABLE TABLET PO SCH (06:43)
[2022-03-24 08:02] VITALS: BP 137/68
[2022-03-24] MEDS: BusPIRone HCL 5 MG TABLET PO SCH ×3 (08:08→16:44)
[2022-03-24] MEDS: LinaGLIPtin 5 MG TABLET PO SCH (08:08)
[2022-03-24] MEDS: PANTOPRAZOLE SODIUM 40 MG DR TABLET PO SCH (08:08)
[2022-03-24] MEDS: FOLIC ACID 1 MG TABLET PO SCH (08:08)
[2022-03-24] MEDS: THIAMINE 100 MG TABLET PO SCH (08:08)
[2022-03-24] MEDS: LISINOPRIL 20 MG TABLET PO SCH (08:08)
[2022-03-24] MEDS: OMEGA-3/DHA/EPA/FISH OIL 1,000 MG CAPSULE PO SCH (08:08)
[2022-03-24] MEDS: AmLODIPine BESYLATE 5 MG TABLET PO SCH (08:08)
[2022-03-24 11:36] LABS: GLUCOMETER DEV NAME(LOC) BV2X.2; GLUCOSE,POINT OF CARE 130 MG/DL (70-110)
[2022-03-24 16:26] LABS: GLUCOMETER DEV NAME(LOC) BV2X.2; GLUCOSE,POINT OF CARE 116 MG/DL (70-110)
[2022-03-24 20:17] VITALS: BP 140/65
[2022-03-24] MEDS: QUEtiapine FUMARATE 300 MG TABLET PO SCH (21:29)
[2022-03-24] MEDS: TraZODone HCL 50 MG TABLET PO SCH (21:29)
[2022-03-24] MEDS: ATORVASTATIN CALCIUM 20 MG TABLET PO SCH (21:29)
[2022-03-25] MEDS: ASPIRIN 81 MG CHEWABLE TABLET PO SCH (06:27)
[2022-03-25] MEDS: LEVOTHYROXINE SODIUM 25 MCG TABLET PO SCH (06:28)
[2022-03-25] MEDS: MetFORMIN HCL 500 MG TABLET PO SCH ×2 (06:28→16:45)
[2022-03-25 06:46] LABS: GLUCOMETER DEV NAME(LOC) BV2X.2; GLUCOSE,POINT OF CARE 117 MG/DL (70-110)
[2022-03-25] MEDS: BusPIRone HCL 5 MG TABLET PO SCH ×3 (07:56→16:45)
[2022-03-25] MEDS: FOLIC ACID 1 MG TABLET PO SCH (07:56)
[2022-03-25] MEDS: PANTOPRAZOLE SODIUM 40 MG DR TABLET PO SCH (07:56)
[2022-03-25] MEDS: LinaGLIPtin 5 MG TABLET PO SCH (07:56)
[2022-03-25] MEDS: LISINOPRIL 20 MG TABLET PO SCH (07:56)
[2022-03-25] MEDS: THIAMINE 100 MG TABLET PO SCH (07:56)
[2022-03-25] MEDS: OMEGA-3/DHA/EPA/FISH OIL 1,000 MG CAPSULE PO SCH (07:57)
[2022-03-25] MEDS: AmLODIPine BESYLATE 5 MG TABLET PO SCH (08:10)
[2022-03-25 08:35] VITALS: BP 151/72
[2022-03-25] MEDS: INSULIN LISPRO 100 UNITS/ML SQ PRN (11:33)
[2022-03-25 11:41] LABS: GLUCOMETER DEV NAME(LOC) BV2X.2; GLUCOSE,POINT OF CARE 142 MG/DL (70-110)
[2022-03-25 12:31] LABS: GLUCOMETER DEV NAME(LOC) POC.BV
[2022-03-25 16:21] LABS: GLUCOMETER DEV NAME(LOC) BV2X.2; GLUCOSE,POINT OF CARE 100 MG/DL (70-110)
[2022-03-25 20:10] VITALS: BP 143/78
[2022-03-25] MEDS: TraZODone HCL 50 MG TABLET PO SCH (21:29)
[2022-03-25] MEDS: QUEtiapine FUMARATE 300 MG TABLET PO SCH (21:29)
[2022-03-25] MEDS: ATORVASTATIN CALCIUM 20 MG TABLET PO SCH (21:29)
[2022-03-26] MEDS: LEVOTHYROXINE SODIUM 25 MCG TABLET PO SCH (06:29)
[2022-03-26] MEDS: MetFORMIN HCL 500 MG TABLET PO SCH ×2 (06:40→17:35)
[2022-03-26 06:41] LABS: GLUCOMETER DEV NAME(LOC) BV2X.2; GLUCOSE,POINT OF CARE 122 MG/DL (70-110)
[2022-03-26] MEDS: ASPIRIN 81 MG CHEWABLE TABLET PO SCH (06:41)
[2022-03-26] MEDS: OMEGA-3/DHA/EPA/FISH OIL 1,000 MG CAPSULE PO SCH (08:06)
[2022-03-26] MEDS: LinaGLIPtin 5 MG TABLET PO SCH (08:07)
[2022-03-26] MEDS: PANTOPRAZOLE SODIUM 40 MG DR TABLET PO SCH (08:07)
[2022-03-26] MEDS: THIAMINE 100 MG TABLET PO SCH (08:07)
[2022-03-26] MEDS: LISINOPRIL 20 MG TABLET PO SCH (08:07)
[2022-03-26] MEDS: AmLODIPine BESYLATE 5 MG TABLET PO SCH (08:07)
[2022-03-26] MEDS: BusPIRone HCL 5 MG TABLET PO SCH ×3 (08:07→17:34)
[2022-03-26] MEDS: FOLIC ACID 1 MG TABLET PO SCH (08:07)
[2022-03-26 09:05] VITALS: BP 146/68
[2022-03-26 12:02] LABS: GLUCOMETER DEV NAME(LOC) BV2X.2; GLUCOSE,POINT OF CARE 148 MG/DL (70-110)
[2022-03-26] MEDS: INSULIN LISPRO 100 UNITS/ML SQ PRN (12:45)
[2022-03-26 16:16] LABS: GLUCOMETER DEV NAME(LOC) BV2X.2; GLUCOSE,POINT OF CARE 100 MG/DL (70-110)
[2022-03-26 20:08] VITALS: BP 144/76
[2022-03-26] MEDS: ATORVASTATIN CALCIUM 20 MG TABLET PO SCH (22:10)
[2022-03-26] MEDS: QUEtiapine FUMARATE 300 MG TABLET PO SCH (22:10)
[2022-03-26] MEDS: TraZODone HCL 50 MG TABLET PO SCH (22:10)
[2022-03-27 06:21] LABS: GLUCOMETER DEV NAME(LOC) BV2X.2; GLUCOSE,POINT OF CARE 140 MG/DL (70-110)
[2022-03-27] MEDS: MetFORMIN HCL 500 MG TABLET PO SCH ×2 (06:25→16:00)
[2022-03-27] MEDS: ASPIRIN 81 MG CHEWABLE TABLET PO SCH (06:25)
[2022-03-27] MEDS: LEVOTHYROXINE SODIUM 25 MCG TABLET PO SCH (06:25)
[2022-03-27] MEDS: PANTOPRAZOLE SODIUM 40 MG DR TABLET PO SCH (08:03)
[2022-03-27] MEDS: AmLODIPine BESYLATE 5 MG TABLET PO SCH (08:03)
[2022-03-27] MEDS: OMEGA-3/DHA/EPA/FISH OIL 1,000 MG CAPSULE PO SCH (08:03)
[2022-03-27] MEDS: BusPIRone HCL 5 MG TABLET PO SCH ×3 (08:03→16:00)
[2022-03-27] MEDS: THIAMINE 100 MG TABLET PO SCH (08:03)
[2022-03-27] MEDS: LISINOPRIL 20 MG TABLET PO SCH (08:03)
[2022-03-27] MEDS: FOLIC ACID 1 MG TABLET PO SCH (08:03)
[2022-03-27] MEDS: LinaGLIPtin 5 MG TABLET PO SCH (08:03)
[2022-03-27 08:38] VITALS: BP 115/58
[2022-03-27 11:26] LABS: GLUCOMETER DEV NAME(LOC) BV2X.2; GLUCOSE,POINT OF CARE 132 MG/DL (70-110)
[2022-03-27] MEDS: INSULIN LISPRO 100 UNITS/ML SQ PRN (16:24)
[2022-03-27 16:31] LABS: GLUCOMETER DEV NAME(LOC) BV2X.2; GLUCOSE,POINT OF CARE 164 MG/DL (70-110)
[2022-03-27] MEDS: TraZODone HCL 50 MG TABLET PO SCH (21:29)
[2022-03-27] MEDS: ATORVASTATIN CALCIUM 20 MG TABLET PO SCH (21:29)
[2022-03-27] MEDS: QUEtiapine FUMARATE 300 MG TABLET PO SCH (21:29)
[2022-03-27 21:43] VITALS: BP 160/75
[2022-03-28] MEDS: LEVOTHYROXINE SODIUM 25 MCG TABLET PO SCH (06:41)
[2022-03-28] MEDS: ASPIRIN 81 MG CHEWABLE TABLET PO SCH (06:52)
[2022-03-28] MEDS: MetFORMIN HCL 500 MG TABLET PO SCH ×2 (06:52→16:33)
[2022-03-28 07:01] LABS: GLUCOMETER DEV NAME(LOC) BV2X.2; GLUCOSE,POINT OF CARE 126 MG/DL (70-110)
[2022-03-28 08:10] VITALS: BP 127/63
[2022-03-28] MEDS: LISINOPRIL 20 MG TABLET PO SCH (08:30)
[2022-03-28] MEDS: BusPIRone HCL 5 MG TABLET PO SCH ×3 (08:30→16:33)
[2022-03-28] MEDS: LinaGLIPtin 5 MG TABLET PO SCH (08:30)
[2022-03-28] MEDS: FOLIC ACID 1 MG TABLET PO SCH (08:30)
[2022-03-28] MEDS: OMEGA-3/DHA/EPA/FISH OIL 1,000 MG CAPSULE PO SCH (08:30)
[2022-03-28] MEDS: PANTOPRAZOLE SODIUM 40 MG DR TABLET PO SCH (08:30)
[2022-03-28] MEDS: AmLODIPine BESYLATE 5 MG TABLET PO SCH (08:30)
[2022-03-28] MEDS: THIAMINE 100 MG TABLET PO SCH (08:31)
[2022-03-28] MEDS: INSULIN LISPRO 100 UNITS/ML SQ PRN (16:36)
[2022-03-28 16:42] LABS: GLUCOMETER DEV NAME(LOC) BV2X.2; GLUCOSE,POINT OF CARE 150 MG/DL (70-110)
[2022-03-28 20:01] VITALS: BP 148/66
[2022-03-28] MEDS: QUEtiapine FUMARATE 300 MG TABLET PO SCH (21:24)
[2022-03-28] MEDS: TraZODone HCL 50 MG TABLET PO SCH (21:24)
[2022-03-28] MEDS: ATORVASTATIN CALCIUM 20 MG TABLET PO SCH (21:24)
[2022-03-29 06:16] LABS: GLUCOMETER DEV NAME(LOC) BV2X.2; GLUCOSE,POINT OF CARE 126 MG/DL (70-110)
[2022-03-29] MEDS: LEVOTHYROXINE SODIUM 25 MCG TABLET PO SCH (06:48)
[2022-03-29] MEDS: ASPIRIN 81 MG CHEWABLE TABLET PO SCH (06:49)
[2022-03-29] MEDS: MetFORMIN HCL 500 MG TABLET PO SCH ×2 (06:49→16:31)
[2022-03-29 08:19] VITALS: BP 133/73
[2022-03-29] MEDS: AmLODIPine BESYLATE 5 MG TABLET PO SCH (08:30)
[2022-03-29] MEDS: PANTOPRAZOLE SODIUM 40 MG DR TABLET PO SCH (08:30)
[2022-03-29] MEDS: THIAMINE 100 MG TABLET PO SCH (08:30)
[2022-03-29] MEDS: BusPIRone HCL 5 MG TABLET PO SCH ×3 (08:30→16:31)
[2022-03-29] MEDS: LinaGLIPtin 5 MG TABLET PO SCH (08:30)
[2022-03-29] MEDS: LISINOPRIL 20 MG TABLET PO SCH (08:30)
[2022-03-29] MEDS: FOLIC ACID 1 MG TABLET PO SCH (08:31)
[2022-03-29] MEDS: OMEGA-3/DHA/EPA/FISH OIL 1,000 MG CAPSULE PO SCH (08:31)
[2022-03-29 16:26] LABS: GLUCOMETER DEV NAME(LOC) BV2X.2; GLUCOSE,POINT OF CARE 143 MG/DL (70-110)
[2022-03-29] MEDS: INSULIN LISPRO 100 UNITS/ML SQ PRN (16:32)
[2022-03-29 20:13] VITALS: BP 139/67
[2022-03-29] MEDS: QUEtiapine FUMARATE 300 MG TABLET PO SCH (21:20)
[2022-03-29] MEDS: ATORVASTATIN CALCIUM 20 MG TABLET PO SCH (21:20)
[2022-03-29] MEDS: TraZODone HCL 50 MG TABLET PO SCH (21:21)
[2022-03-30] MEDS: LEVOTHYROXINE SODIUM 25 MCG TABLET PO SCH (06:24)
[2022-03-30] MEDS: ASPIRIN 81 MG CHEWABLE TABLET PO SCH (06:25)
[2022-03-30] MEDS: MetFORMIN HCL 500 MG TABLET PO SCH ×2 (06:25→16:58)
[2022-03-30 06:45] LABS: GLUCOMETER DEV NAME(LOC) BV2X.2; GLUCOSE,POINT OF CARE 134 MG/DL (70-110)
[2022-03-30] MEDS: FOLIC ACID 1 MG TABLET PO SCH (08:08)
[2022-03-30] MEDS: LISINOPRIL 20 MG TABLET PO SCH (08:08)
[2022-03-30] MEDS: BusPIRone HCL 5 MG TABLET PO SCH ×3 (08:08→17:04)
[2022-03-30] MEDS: PANTOPRAZOLE SODIUM 40 MG DR TABLET PO SCH (08:08)
[2022-03-30] MEDS: AmLODIPine BESYLATE 5 MG TABLET PO SCH (08:08)
[2022-03-30] MEDS: OMEGA-3/DHA/EPA/FISH OIL 1,000 MG CAPSULE PO SCH (08:08)
[2022-03-30] MEDS: THIAMINE 100 MG TABLET PO SCH (08:08)
[2022-03-30] MEDS: LinaGLIPtin 5 MG TABLET PO SCH (08:08)
[2022-03-30 08:09] VITALS: BP 125/57
[2022-03-30 16:46] LABS: GLUCOMETER DEV NAME(LOC) BV2X.2; GLUCOSE,POINT OF CARE 154 MG/DL (70-110)
[2022-03-30] MEDS: INSULIN LISPRO 100 UNITS/ML SQ PRN (17:01)
[2022-03-30 20:08] VITALS: BP 132/67
[2022-03-30] MEDS: QUEtiapine FUMARATE 300 MG TABLET PO SCH (20:48)
[2022-03-30] MEDS: ATORVASTATIN CALCIUM 20 MG TABLET PO SCH (20:48)
[2022-03-30] MEDS: TraZODone HCL 50 MG TABLET PO SCH (20:48)
[2022-03-31] MEDS: LEVOTHYROXINE SODIUM 25 MCG TABLET PO SCH (06:29)
[2022-03-31] MEDS: MetFORMIN HCL 500 MG TABLET PO SCH (06:29)
[2022-03-31] MEDS: ASPIRIN 81 MG CHEWABLE TABLET PO SCH (06:30)
[2022-03-31 06:51] LABS: GLUCOMETER DEV NAME(LOC) BV2X.2; GLUCOSE,POINT OF CARE 129 MG/DL (70-110)
[2022-03-31] MEDS: FOLIC ACID 1 MG TABLET PO SCH (08:11)
[2022-03-31] MEDS: LinaGLIPtin 5 MG TABLET PO SCH (08:11)
[2022-03-31] MEDS: OMEGA-3/DHA/EPA/FISH OIL 1,000 MG CAPSULE PO SCH (08:11)
[2022-03-31] MEDS: PANTOPRAZOLE SODIUM 40 MG DR TABLET PO SCH (08:12)
[2022-03-31] MEDS: AmLODIPine BESYLATE 5 MG TABLET PO SCH (08:12)
[2022-03-31] MEDS: LISINOPRIL 20 MG TABLET PO SCH (08:12)
[2022-03-31] MEDS: BusPIRone HCL 5 MG TABLET PO SCH (08:12)
[2022-03-31] MEDS: THIAMINE 100 MG TABLET PO SCH (08:12)
[2022-03-31 08:55] VITALS: BP 139/72
[2022-03-31] MEDS ORDERED: QUET300T19 PO (10:06)
[2022-03-31] MEDS ORDERED: BUSP5TAB20 PO (10:06)
[2022-03-31] MEDS ORDERED: TRAZ-252 PO (10:06)
== END 2022-03-31 12:06 | disposition home or self-care (01) | DRG 881 ==
LOC: B2X 20:55
PROVIDERS: ADMIT Psychiatry & Neurology Psychiatry; ATTEND Psychiatry & Neurology Psychiatry
DX: F32.9 Major depressive disorder, single episode, unspecified (principal); E03.9 Hypothyroidism, unspecified; E11.9 Type 2 diabetes mellitus without complications; E78.5 Hyperlipidemia, unspecified; F10.10 Alcohol abuse, uncomplicated; I10 Essential (primary) hypertension; Z59.00 Homelessness unspecified; E87.6 Hypokalemia; D64.9 Anemia, unspecified; D72.819 Decreased white blood cell count, unspecified; Z20.822 Contact with and (suspected) exposure to COVID-19
CPT/HCPCS: 80048; 80053; 80061; 82962; 83036; 84439; 84443; 85025; J3420; Q9967

== ENCOUNTER 2022-05-07 14:54 | Emergency (ER) | payer MEDICARE, MEDICAID ==
[~2022-05-07] VITALS: Ht 167.6 cm; Wt 109.1 kg
[~2022-05-07 14:54] MED LIST changes: -LEVO50CA4 PO; -QUET200T PO; +QUET300T19 PO
[2022-05-07] MEDS ORDERED: MAGNESIUM SULFATE 2 GM, MVI, ADULT NO.1 WITH VIT K 10 ML, THIAMINE 100 MG, FOLIC ACID 1... IV ONE ×5 (15:15)
[2022-05-07] MEDS ORDERED: ChlordiazePOXIDE HCL 25 MG CAPSULE PO ONE (15:45)
[2022-05-07 16:07] LABS: BASOPHILS % (AUTO) 0.3 % (0.0-2.0); EOSINOPHILS % (AUTO) 0.1 % (1.0-6.0); HEMATOCRIT 30.8 % (41-53); HEMOGLOBIN 9.4 g/dL (13.5-17.5); LYMPHOCYTES # (AUTO) 1.6 K/uL (1.0-4.8); LYMPHOCYTES % (AUTO) 35.3 % (22.0-44.0); MEAN CORPUSCULAR HEMOGLOBIN 18.4 pg (26.0-34.0); MEAN CORPUSCULAR HGB CONC 30.5 G/dL (31.0-37.0); MEAN CORPUSCULAR VOLUME 60 fL (80-100); MONOCYTES # (AUTO) 0.5 K/uL (0.1-1.0); MONOCYTES % (AUTO) 10.2 % (2.0-9.0); NEUTROPHILS # (AUTO) 2.5 K/uL (1.8-7.7); NEUTROPHILS % (AUTO) 54.1 % (40.0-70.0); PLATELET COUNT (AUTO) 113 K/uL (150-450); RED CELL DISTRIBUTION WIDTH 20.6 % (11.5-14.5)
[2022-05-07 16:19] LABS: ANION GAP 11 mmol/L (8-16); CALCIUM, TOTAL 8.1 mg/dL (8.8-10.5); CARBON DIOXIDE 29 mmol/L (22-29); CHLORIDE 91 mmol/L (98-107); GLUCOSE,RANDOM 225 mg/dL (70-110); POTASSIUM 3.5 mmol/L (3.5-5.1); SODIUM SERUM 131 mmol/L (136-145); UREA NITROGEN, BLOOD 5 mg/dL (7-18)
[2022-05-07 16:21] LABS: GLOMERULAR FILTR. RATE CALC > 60 mL/min (>60)
[2022-05-07 16:23] LABS: ALANINE AMINOTRANSFERASE 27 U/L (12-78); ALBUMIN 3.6 g/dL (3.4-5.0); ALKALINE PHOSPHATASE 104 U/L (46-116); ASPARTATE AMINOTRANSFERASE 25 U/L (15-37); BILIRUBIN,TOTAL 0.3 mg/dL (0.1-1.0); TOTAL PROTEIN, SERUM 7.6 g/dL (6.4-8.2)
[2022-05-07 16:32] LABS: PATHOLOGY REVIEW, DIFF YES
[2022-05-07] MEDS ORDERED: TraZODone HCL 50 MG TABLET PO ONE (20:15)
[2022-05-07] MEDS ORDERED: QUEtiapine FUMARATE 100 MG TABLET PO ONE (20:15)
[2022-05-07 21:05] LABS: AMPHET/METH SCREEN,URINE NEGATIVE (NEGATIVE); BARBITURATE SCREEN, URINE NEGATIVE (NEGATIVE); BENZODIAZEPINES SCREEN,URINE NEGATIVE (NEGATIVE); CANNABINOID SCREEN,URINE NEGATIVE (NEGATIVE); COCAINE SCREEN,URINE NEGATIVE (NEGATIVE); METHADONE SCREEN, URINE NEGATIVE (NEGATIVE); OPIATE SCREEN,URINE NEGATIVE (NEGATIVE)
[2022-05-07 21:13] LABS: PHENCYCLIDINE SCREEN,URINE NEGATIVE (NEGATIVE)
[2022-05-08 03:20] LABS: COVID AG,FIA SOURCE NASAL SWAB
[2022-05-08] MEDS ORDERED: ChlordiazePOXIDE HCL 25 MG CAPSULE PO ONE (06:30)
[2022-05-08 08:48] VITALS: BP 154/87
== END 2022-05-08 08:38 | disposition home or self-care (01) ==
LOC: EMS 15:01 → UNDOADMIN 05-08 03:34 → B2X 05-08 03:34 → EMS 05-08 08:38
DX: F10.129 Alcohol abuse with intoxication, unspecified (principal); Z20.822 Contact with and (suspected) exposure to COVID-19; E11.9 Type 2 diabetes mellitus without complications; F32.9 Major depressive disorder, single episode, unspecified; I10 Essential (primary) hypertension; Z88.5 Allergy status to narcotic agent
CPT/HCPCS: 99285; 96365; 96366; 87426; 80053; 82962; 85025; 36415; 80307; G0480; J3490 ×2; J3411; J3475; J7030

== ENCOUNTER 2023-03-16 16:16 | Inpatient (IN) | payer MEDICARE, MEDICAID ==
[~2023-03-16] VITALS: Ht 167.6 cm; Wt 111.6 kg
[~2023-03-16 16:16] MED LIST changes: -AMLO5TAB66 PO; +BUPR-344 PO; -BUSP5TAB20 PO; -LINA5TAB PO; -METF-446 PO; -OMEG-135 PO; -SITA25 PO; -TRAZ-252 PO; +TRAZ-257 PO
[2023-03-16 17:10] VITALS: RESP 20
[2023-03-16] MEDS ORDERED: -PHARMACY VACCINE NOTE- MISC ONE (18:30)
[2023-03-16 18:42] VITALS: BP 176/91; PULSE 97; RESP 18; TEMP 97.5; O2SAT 95
[2023-03-16 18:51] LABS: GLUCOMETER DEV NAME(LOC) BV2X.2; GLUCOSE,POINT OF CARE 374 MG/DL (70-110)
[2023-03-16 19:36] VITALS: BP 143/79; PULSE 89; RESP 20; TEMP 97.9; O2SAT 95
[2023-03-16 20:22] VITALS: BP 159/83; PULSE 97
[2023-03-16] MEDS: HALOPERIDOL 5 MG TABLET PO PRN (21:17)
[2023-03-16] MEDS: INSULIN LISPRO 100 UNITS/ML SQ PRN (21:57)
[2023-03-16] MEDS ORDERED: GLUCAGON,HUMAN RECOMBINANT 1 MG VIAL IM PRN (22:00)
[2023-03-17] MEDS: INSULIN LISPRO 100 UNITS/ML SQ PRN ×4 (06:19→20:29)
[2023-03-17] MEDS ORDERED: DOCUSATE SODIUM 100 MG CAPSULE PO PRN (07:15)
[2023-03-17] MEDS ORDERED: MAGNESIUM HYDROXIDE SUSPENSION 30 ML UDCUP PO PRN (07:15)
[2023-03-17] MEDS ORDERED: ALBUTEROL SULFATE HFA 90 MCG/PUFF 8 GM INHALER IH PRN (07:15)
[2023-03-17] MEDS ORDERED: LOPERAMIDE HCL 2 MG CAPSULE PO PRN (07:15)
[2023-03-17] MEDS ORDERED: PETROLATUM,WHITE 28 GM JELLY TP PRN (07:15)
[2023-03-17] MEDS ORDERED: MAG HYDROX/AL HYDROX/SIMETH ES 30 ML SUSPENSION UDCUP PO PRN (07:15)
[2023-03-17] MEDS ORDERED: BENZOCAINE/MENTHOL LOZENGE PO PRN (07:15)
[2023-03-17] MEDS ORDERED: IBUPROFEN 600 MG TABLET PO PRN (07:15)
[2023-03-17] MEDS ORDERED: BACITRACIN 28 GM OINTMENT TP PRN (07:15)
[2023-03-17] MEDS ORDERED: OMEPRAZOLE 20 MG CAPSULE PO PRN (07:15)
[2023-03-17] MEDS ORDERED: ONDANSETRON HCL 4 MG TABLET PO PRN (07:15)
[2023-03-17] MEDS ORDERED: ACETAMINOPHEN 325 MG TABLET PO PRN (07:15)
[2023-03-17 08:11] LABS: BASOPHILS % (AUTO) 0.6 % (0.0-2.0); EOSINOPHILS % (AUTO) 1.2 % (1.0-6.0); HEMATOCRIT 33.4 % (41-53); LYMPHOCYTES # (AUTO) 1.7 K/uL (1.0-4.8); LYMPHOCYTES % (AUTO) 31.2 % (22.0-44.0); MEAN CORPUSCULAR HEMOGLOBIN 17.8 pg (26.0-34.0); MEAN CORPUSCULAR HGB CONC 29.8 G/dL (31.0-37.0); MEAN CORPUSCULAR VOLUME 60 fL (80-100); MONOCYTES # (AUTO) 0.6 K/uL (0.1-1.0); NEUTROPHILS # (AUTO) 3.1 K/uL (1.8-7.7); PLATELET COUNT (AUTO) 201 K/uL (150-450); RED BLOOD CELL COUNT(AUTO) 5.59 MIL/uL (4.50-5.90); RED CELL DISTRIBUTION WIDTH 20.8 % (11.5-14.5); WHITE BLOOD COUNT (AUTO) 5.5 K/uL (4.5-11.0)
[2023-03-17 08:16] LABS: GLUCOMETER DEV NAME(LOC) BV2X.2; GLUCOSE,POINT OF CARE 264 MG/DL (70-110)
[2023-03-17] MEDS: ASPIRIN 81 MG DR TABLET PO SCH (08:27)
[2023-03-17] MEDS: CHOLECALCIFEROL (VIT D3) 1,000 UNITS [25 MCG] TABLET PO SCH (08:27)
[2023-03-17] MEDS: LISINOPRIL 20 MG TABLET PO SCH (08:27)
[2023-03-17] MEDS: AmLODIPine BESYLATE 5 MG TABLET PO SCH (08:27)
[2023-03-17] MEDS: MULTIVITAMINS WITH MINERALS, THERAPEUTIC TABLET PO SCH (08:27)
[2023-03-17 08:32] LABS: ALANINE AMINOTRANSFERASE 24 U/L (12-78); ALBUMIN 3.6 g/dL (3.4-5.0); ALKALINE PHOSPHATASE 98 U/L (46-116); ANION GAP 9 mmol/L (8-16); ASPARTATE AMINOTRANSFERASE 18 U/L (15-37); BILIRUBIN,TOTAL 0.4 mg/dL (0.1-1.0); CALCIUM, TOTAL 8.3 mg/dL (8.8-10.5); CARBON DIOXIDE 28 mmol/L (22-29); CHLORIDE 97 mmol/L (98-107); CHOL/HDL RATIO 1.9 (4.2-7.3); CHOLESTEROL 177 mg/dL (131-200); CREATININE 0.57 mg/dL (0.60-1.30); FREE T4 (FREE THYROXINE) 0.88 ng/dL (0.76-1.46); GLOMERULAR FILTR. RATE CALC > 60 mL/min (>60); GLUCOSE,RANDOM 249 mg/dL (70-110); HDL CHOLESTEROL 91 mg/dL (40-60); LDL CHOL (CALC.) 71 mg/dL (0-130); POTASSIUM 3.4 mmol/L (3.5-5.1); SODIUM SERUM 134 mmol/L (136-145); THYROID STIMULATING HORMONE 7.78 uIU/mL (0.36-3.74); TOTAL PROTEIN, SERUM 6.9 g/dL (6.4-8.2); TRIGLYCERIDES 77 mg/dL (15-150); UREA NITROGEN, BLOOD 11 mg/dL (7-18)
[2023-03-17 08:42] LABS: RBC MORPHOLOGY COMMENT ABNORMAL RBC MORPH
[2023-03-17] MEDS: HALOPERIDOL 5 MG TABLET PO PRN (09:05)
[2023-03-17 09:53] VITALS: BP 126/59; PULSE 100; RESP 18; TEMP 96.9; O2SAT 96
[2023-03-17 11:50] LABS: GLUCOMETER DEV NAME(LOC) BV2X.2; GLUCOSE,POINT OF CARE 395 MG/DL (70-110)
[2023-03-17] MEDS: MetFORMIN HCL 500 MG TABLET PO SCH (16:34)
[2023-03-17] MEDS: FERROUS SULFATE 325 MG EC TABLET PO SCH (16:34)
[2023-03-17 16:51] LABS: GLUCOMETER DEV NAME(LOC) BV2X.2; GLUCOSE,POINT OF CARE 314 MG/DL (70-110)
[2023-03-17 20:20] VITALS: BP 161/79; PULSE 86; RESP 18; TEMP 98.6; O2SAT 96
[2023-03-17 20:30] LABS: GLUCOMETER DEV NAME(LOC) BV2X.2; GLUCOSE,POINT OF CARE 260 MG/DL (70-110)
[2023-03-17] MEDS: QUEtiapine FUMARATE 300 MG TABLET PO SCH (21:12)
[2023-03-17] MEDS: ATORVASTATIN CALCIUM 20 MG TABLET PO SCH (21:12)
[2023-03-17] MEDS: TraZODone HCL 100 MG TABLET PO SCH (21:12)
[2023-03-17 22:00] VITALS: BP 126/78; PULSE 90; RESP 17; TEMP 97.5; O2SAT 96
[2023-03-18 06:46] LABS: GLUCOMETER DEV NAME(LOC) BV2X.2; GLUCOSE,POINT OF CARE 286 MG/DL (70-110)
[2023-03-18] MEDS: FERROUS SULFATE 325 MG EC TABLET PO SCH ×2 (06:47→16:17)
[2023-03-18] MEDS: LEVOTHYROXINE SODIUM 25 MCG TABLET PO SCH (06:47)
[2023-03-18] MEDS: MetFORMIN HCL 500 MG TABLET PO SCH ×2 (06:47→16:17)
[2023-03-18] MEDS: INSULIN LISPRO 100 UNITS/ML SQ PRN ×4 (06:52→21:58)
[2023-03-18] MEDS: LISINOPRIL 20 MG TABLET PO SCH (08:03)
[2023-03-18] MEDS: AmLODIPine BESYLATE 5 MG TABLET PO SCH (08:03)
[2023-03-18] MEDS: MULTIVITAMINS WITH MINERALS, THERAPEUTIC TABLET PO SCH (08:03)
[2023-03-18] MEDS: BuPROPion HCL 75 MG TABLET PO SCH (08:03)
[2023-03-18] MEDS: ASPIRIN 81 MG DR TABLET PO SCH (08:03)
[2023-03-18] MEDS: CHOLECALCIFEROL (VIT D3) 1,000 UNITS [25 MCG] TABLET PO SCH (08:03)
[2023-03-18 08:24] VITALS: BP 143/71; PULSE 105; RESP 17; TEMP 97.1; O2SAT 96
[2023-03-18 10:07] LABS: GLUCOMETER DEV NAME(LOC) POC.BV; POC SARS-COV2 AG, FIA NEGATIVE (NEGATIVE)
[2023-03-18 11:41] LABS: GLUCOMETER DEV NAME(LOC) BV2X.2; GLUCOSE,POINT OF CARE 301 MG/DL (70-110)
[2023-03-18 17:01] LABS: GLUCOMETER DEV NAME(LOC) BV2X.2; GLUCOSE,POINT OF CARE 253 MG/DL (70-110)
[2023-03-18 20:25] VITALS: BP 171/80; PULSE 91; RESP 18; TEMP 98.3; O2SAT 97
[2023-03-18 20:31] LABS: GLUCOMETER DEV NAME(LOC) BV2X.2; GLUCOSE,POINT OF CARE 256 MG/DL (70-110)
[2023-03-18] MEDS: ATORVASTATIN CALCIUM 20 MG TABLET PO SCH (20:38)
[2023-03-18] MEDS: TraZODone HCL 100 MG TABLET PO SCH (20:38)
[2023-03-18] MEDS: QUEtiapine FUMARATE 300 MG TABLET PO SCH (20:38)
[2023-03-19] MEDS: LEVOTHYROXINE SODIUM 25 MCG TABLET PO SCH (06:24)
[2023-03-19] MEDS: FERROUS SULFATE 325 MG EC TABLET PO SCH ×2 (06:40→17:11)
[2023-03-19] MEDS: MetFORMIN HCL 500 MG TABLET PO SCH ×2 (06:41→17:11)
[2023-03-19] MEDS: INSULIN LISPRO 100 UNITS/ML SQ PRN ×4 (06:48→20:46)
[2023-03-19 06:56] LABS: GLUCOMETER DEV NAME(LOC) BV2X.2; GLUCOSE,POINT OF CARE 282 MG/DL (70-110)
[2023-03-19 08:40] LABS: APPEARANCE,URINE CLEAR (CLEAR); BILIRUBIN,URINE NEGATIVE (NEGATIVE); COLOR,URINE YELLOW (YELLOW); GLUCOSE, URINE (UA) >=1000 mg/dL (NEGATIVE); KETONES,URINE NEGATIVE (NEGATIVE); LEUKOCYTE ESTERASE ,URINE NEGATIVE (NEGATIVE); NITRATE,URINE NEGATIVE (NEGATIVE); OCCULT BLOOD,URINE NEGATIVE (NEGATIVE); PH,URINE 6.5 (5.0-8.0); PH,URINE DRUG SCREEN 6.5 (5.0-8.0); PROTEIN,URINE NEGATIVE (NEGATIVE); SPECIFIC GRAVITIY, URINE 1.035 (1.003-1.030); UROBILINOGEN,URINE <=1.0 mg/dL (<=1.0)
[2023-03-19 08:49] LABS: ALCOHOL, URINE DRUG SCREEN NEGATIVE (NEGATIVE); AMPHET/METH SCREEN,URINE NEGATIVE (NEGATIVE); BARBITURATE SCREEN, URINE NEGATIVE (NEGATIVE); BENZODIAZEPINES SCREEN,URINE NEGATIVE (NEGATIVE); CANNABINOID SCREEN,URINE NEGATIVE (NEGATIVE); COCAINE SCREEN,URINE NEGATIVE (NEGATIVE); METHADONE SCREEN, URINE NEGATIVE (NEGATIVE); OPIATE SCREEN,URINE NEGATIVE (NEGATIVE); PHENCYCLIDINE SCREEN,URINE NEGATIVE (NEGATIVE)
[2023-03-19 08:52] LABS: BACTERIA,URINE None Seen /HPF (None Seen); RBC,URINE 0-2 /HPF (0-2); WBC,URINE None Seen /HPF (0-5)
[2023-03-19 09:02] VITALS: BP 118/64; PULSE 98; RESP 18; TEMP 97.7; O2SAT 96
[2023-03-19] MEDS: ASPIRIN 81 MG DR TABLET PO SCH (09:16)
[2023-03-19] MEDS: AmLODIPine BESYLATE 5 MG TABLET PO SCH (09:16)
[2023-03-19] MEDS: MULTIVITAMINS WITH MINERALS, THERAPEUTIC TABLET PO SCH (09:17)
[2023-03-19] MEDS: BuPROPion HCL 75 MG TABLET PO SCH (09:17)
[2023-03-19] MEDS: LISINOPRIL 20 MG TABLET PO SCH (09:18)
[2023-03-19] MEDS: CHOLECALCIFEROL (VIT D3) 1,000 UNITS [25 MCG] TABLET PO SCH (09:18)
[2023-03-19 11:51] LABS: GLUCOMETER DEV NAME(LOC) BV2X.2; GLUCOSE,POINT OF CARE 294 MG/DL (70-110)
[2023-03-19 17:16] LABS: GLUCOMETER DEV NAME(LOC) BV2X.2; GLUCOSE,POINT OF CARE 269 MG/DL (70-110)
[2023-03-19] MEDS: TraZODone HCL 100 MG TABLET PO SCH (20:39)
[2023-03-19] MEDS: QUEtiapine FUMARATE 300 MG TABLET PO SCH (20:39)
[2023-03-19 20:41] LABS: GLUCOMETER DEV NAME(LOC) BV2X.2; GLUCOSE,POINT OF CARE 299 MG/DL (70-110)
[2023-03-19] MEDS: ATORVASTATIN CALCIUM 20 MG TABLET PO SCH (21:00)
[2023-03-19 21:19] VITALS: BP 149/78; PULSE 81; RESP 18; TEMP 98.2; O2SAT 95
[2023-03-20 06:26] LABS: GLUCOMETER DEV NAME(LOC) BV2X.2; GLUCOSE,POINT OF CARE 248 MG/DL (70-110)
[2023-03-20] MEDS: LEVOTHYROXINE SODIUM 25 MCG TABLET PO SCH (06:48)
[2023-03-20] MEDS: FERROUS SULFATE 325 MG EC TABLET PO SCH ×2 (06:48→16:55)
[2023-03-20] MEDS: MetFORMIN HCL 500 MG TABLET PO SCH ×2 (06:49→16:54)
[2023-03-20] MEDS: INSULIN LISPRO 100 UNITS/ML SQ PRN ×4 (06:49→20:43)
[2023-03-20] MEDS: AmLODIPine BESYLATE 5 MG TABLET PO SCH (08:37)
[2023-03-20] MEDS: LISINOPRIL 20 MG TABLET PO SCH (08:37)
[2023-03-20] MEDS: ASPIRIN 81 MG DR TABLET PO SCH (08:37)
[2023-03-20] MEDS: BuPROPion HCL 75 MG TABLET PO SCH (08:37)
[2023-03-20] MEDS: MULTIVITAMINS WITH MINERALS, THERAPEUTIC TABLET PO SCH (08:37)
[2023-03-20] MEDS: CHOLECALCIFEROL (VIT D3) 1,000 UNITS [25 MCG] TABLET PO SCH (08:37)
[2023-03-20 08:38] VITALS: BP 128/63; PULSE 91; RESP 18; TEMP 98; O2SAT 95
[2023-03-20] MEDS: FOLIC ACID 1 MG TABLET PO SCH (11:10)
[2023-03-20] MEDS: THIAMINE 100 MG TABLET PO SCH (11:10)
[2023-03-20 11:30] LABS: GLUCOMETER DEV NAME(LOC) BV2X.2; GLUCOSE,POINT OF CARE 281 MG/DL (70-110)
[2023-03-20 17:00] LABS: GLUCOMETER DEV NAME(LOC) BV2X.2; GLUCOSE,POINT OF CARE 247 MG/DL (70-110)
[2023-03-20 20:31] LABS: GLUCOMETER DEV NAME(LOC) BV2X.2; GLUCOSE,POINT OF CARE 236 MG/DL (70-110)
[2023-03-20 20:42] VITALS: BP 140/85; PULSE 82; RESP 17; TEMP 98; O2SAT 97
[2023-03-20] MEDS: TraZODone HCL 100 MG TABLET PO SCH (21:07)
[2023-03-20] MEDS: ATORVASTATIN CALCIUM 20 MG TABLET PO SCH (21:07)
[2023-03-20] MEDS: QUEtiapine FUMARATE 300 MG TABLET PO SCH (21:07)
[2023-03-21 06:21] LABS: GLUCOMETER DEV NAME(LOC) BV2X.2; GLUCOSE,POINT OF CARE 231 MG/DL (70-110)
[2023-03-21] MEDS: FERROUS SULFATE 325 MG EC TABLET PO SCH ×2 (06:51→16:39)
[2023-03-21] MEDS: LEVOTHYROXINE SODIUM 25 MCG TABLET PO SCH (06:51)
[2023-03-21] MEDS: MetFORMIN HCL 500 MG TABLET PO SCH ×2 (06:51→16:39)
[2023-03-21] MEDS: INSULIN LISPRO 100 UNITS/ML SQ PRN ×4 (06:52→20:47)
[2023-03-21 08:07] VITALS: BP 121/64; PULSE 83; RESP 15; TEMP 97.4; O2SAT 98
[2023-03-21] MEDS: THIAMINE 100 MG TABLET PO SCH (08:36)
[2023-03-21] MEDS: LISINOPRIL 20 MG TABLET PO SCH (08:36)
[2023-03-21] MEDS: ASPIRIN 81 MG DR TABLET PO SCH (08:36)
[2023-03-21] MEDS: CHOLECALCIFEROL (VIT D3) 1,000 UNITS [25 MCG] TABLET PO SCH (08:36)
[2023-03-21] MEDS: AmLODIPine BESYLATE 5 MG TABLET PO SCH (08:36)
[2023-03-21] MEDS: MULTIVITAMINS WITH MINERALS, THERAPEUTIC TABLET PO SCH (08:36)
[2023-03-21] MEDS: BuPROPion HCL 75 MG TABLET PO SCH (08:36)
[2023-03-21] MEDS: FOLIC ACID 1 MG TABLET PO SCH (08:36)
[2023-03-21 11:31] LABS: GLUCOMETER DEV NAME(LOC) BV2X.2; GLUCOSE,POINT OF CARE 273 MG/DL (70-110)
[2023-03-21 16:46] LABS: GLUCOMETER DEV NAME(LOC) BV2X.2; GLUCOSE,POINT OF CARE 279 MG/DL (70-110)
[2023-03-21 20:13] VITALS: BP 145/78; PULSE 78; RESP 16; TEMP 97.8; O2SAT 97
[2023-03-21 20:21] LABS: GLUCOMETER DEV NAME(LOC) BV2X.2; GLUCOSE,POINT OF CARE 226 MG/DL (70-110)
[2023-03-21] MEDS: ATORVASTATIN CALCIUM 20 MG TABLET PO SCH (21:05)
[2023-03-21] MEDS: TraZODone HCL 100 MG TABLET PO SCH (21:05)
[2023-03-21] MEDS: QUEtiapine FUMARATE 300 MG TABLET PO SCH (21:05)
[2023-03-22 06:36] LABS: GLUCOMETER DEV NAME(LOC) BV2X.2; GLUCOSE,POINT OF CARE 172 MG/DL (70-110)
[2023-03-22] MEDS: FERROUS SULFATE 325 MG EC TABLET PO SCH ×2 (06:43→16:35)
[2023-03-22] MEDS: MetFORMIN HCL 500 MG TABLET PO SCH ×2 (06:43→16:35)
[2023-03-22] MEDS: LEVOTHYROXINE SODIUM 25 MCG TABLET PO SCH (06:43)
[2023-03-22] MEDS: INSULIN LISPRO 100 UNITS/ML SQ PRN ×4 (06:55→20:23)
[2023-03-22 08:06] VITALS: BP 125/67; PULSE 93; RESP 17; TEMP 97.6; O2SAT 96
[2023-03-22] MEDS: AmLODIPine BESYLATE 5 MG TABLET PO SCH (08:27)
[2023-03-22] MEDS: MULTIVITAMINS WITH MINERALS, THERAPEUTIC TABLET PO SCH (08:28)
[2023-03-22] MEDS: CHOLECALCIFEROL (VIT D3) 1,000 UNITS [25 MCG] TABLET PO SCH (08:28)
[2023-03-22] MEDS: BuPROPion HCL 75 MG TABLET PO SCH (08:28)
[2023-03-22] MEDS: LISINOPRIL 20 MG TABLET PO SCH (08:28)
[2023-03-22] MEDS: THIAMINE 100 MG TABLET PO SCH (08:28)
[2023-03-22] MEDS: ASPIRIN 81 MG DR TABLET PO SCH (08:28)
[2023-03-22] MEDS: FOLIC ACID 1 MG TABLET PO SCH (08:28)
[2023-03-22 11:41] LABS: GLUCOMETER DEV NAME(LOC) BV2X.2; GLUCOSE,POINT OF CARE 205 MG/DL (70-110)
[2023-03-22] MEDS: DENTURE ADHESIVE 68 GM CREAM DT PRN (12:37)
[2023-03-22 16:21] LABS: GLUCOMETER DEV NAME(LOC) BV2X.2; GLUCOSE,POINT OF CARE 209 MG/DL (70-110)
[2023-03-22 20:16] LABS: GLUCOMETER DEV NAME(LOC) BV2X.2; GLUCOSE,POINT OF CARE 183 MG/DL (70-110)
[2023-03-22 20:51] VITALS: BP 132/70; PULSE 97; RESP 18; TEMP 97.5; O2SAT 97
[2023-03-22] MEDS: QUEtiapine FUMARATE 300 MG TABLET PO SCH (21:02)
[2023-03-22] MEDS: TraZODone HCL 100 MG TABLET PO SCH (21:02)
[2023-03-22] MEDS: ATORVASTATIN CALCIUM 20 MG TABLET PO SCH (21:02)
[2023-03-23] MEDS: FERROUS SULFATE 325 MG EC TABLET PO SCH ×2 (06:21→16:41)
[2023-03-23] MEDS: MetFORMIN HCL 500 MG TABLET PO SCH ×2 (06:21→16:41)
[2023-03-23] MEDS: LEVOTHYROXINE SODIUM 25 MCG TABLET PO SCH (06:21)
[2023-03-23] MEDS: INSULIN LISPRO 100 UNITS/ML SQ PRN ×4 (06:22→20:47)
[2023-03-23 06:26] LABS: GLUCOMETER DEV NAME(LOC) BV2X.2; GLUCOSE,POINT OF CARE 182 MG/DL (70-110)
[2023-03-23 08:32] VITALS: BP 165/66; PULSE 92; RESP 16; TEMP 97.7; O2SAT 100
[2023-03-23] MEDS: CHOLECALCIFEROL (VIT D3) 1,000 UNITS [25 MCG] TABLET PO SCH (08:39)
[2023-03-23] MEDS: BuPROPion HCL 75 MG TABLET PO SCH (08:39)
[2023-03-23] MEDS: MULTIVITAMINS WITH MINERALS, THERAPEUTIC TABLET PO SCH (08:40)
[2023-03-23] MEDS: LISINOPRIL 20 MG TABLET PO SCH (08:40)
[2023-03-23] MEDS: ASPIRIN 81 MG DR TABLET PO SCH (08:40)
[2023-03-23] MEDS: FOLIC ACID 1 MG TABLET PO SCH (08:40)
[2023-03-23] MEDS: THIAMINE 100 MG TABLET PO SCH (08:40)
[2023-03-23] MEDS: AmLODIPine BESYLATE 5 MG TABLET PO SCH (08:42)
[2023-03-23 11:32] LABS: GLUCOMETER DEV NAME(LOC) BV2X.2; GLUCOSE,POINT OF CARE 214 MG/DL (70-110)
[2023-03-23 16:36] LABS: GLUCOMETER DEV NAME(LOC) BV2X.2; GLUCOSE,POINT OF CARE 235 MG/DL (70-110)
[2023-03-23 20:31] LABS: GLUCOMETER DEV NAME(LOC) BV2X.2; GLUCOSE,POINT OF CARE 175 MG/DL (70-110)
[2023-03-23] MEDS: QUEtiapine FUMARATE 300 MG TABLET PO SCH (20:54)
[2023-03-23] MEDS: ATORVASTATIN CALCIUM 20 MG TABLET PO SCH (20:54)
[2023-03-23] MEDS: TraZODone HCL 100 MG TABLET PO SCH (20:54)
[2023-03-23 21:00] VITALS: BP 162/77; PULSE 71; RESP 17; TEMP 98.2; O2SAT 97
[2023-03-24] MEDS: INSULIN LISPRO 100 UNITS/ML SQ PRN ×4 (05:51→20:49)
[2023-03-24 05:56] LABS: GLUCOMETER DEV NAME(LOC) BV2X.2; GLUCOSE,POINT OF CARE 157 MG/DL (70-110)
[2023-03-24] MEDS: MetFORMIN HCL 500 MG TABLET PO SCH ×2 (06:07→16:40)
[2023-03-24] MEDS: LEVOTHYROXINE SODIUM 25 MCG TABLET PO SCH (06:07)
[2023-03-24] MEDS: FERROUS SULFATE 325 MG EC TABLET PO SCH ×2 (06:07→16:40)
[2023-03-24] MEDS: THIAMINE 100 MG TABLET PO SCH (08:32)
[2023-03-24] MEDS: BuPROPion HCL 75 MG TABLET PO SCH (08:32)
[2023-03-24] MEDS: FOLIC ACID 1 MG TABLET PO SCH (08:33)
[2023-03-24] MEDS: ASPIRIN 81 MG DR TABLET PO SCH (08:33)
[2023-03-24] MEDS: LISINOPRIL 20 MG TABLET PO SCH (08:33)
[2023-03-24] MEDS: AmLODIPine BESYLATE 5 MG TABLET PO SCH (08:33)
[2023-03-24] MEDS: CHOLECALCIFEROL (VIT D3) 1,000 UNITS [25 MCG] TABLET PO SCH (08:33)
[2023-03-24] MEDS: MULTIVITAMINS WITH MINERALS, THERAPEUTIC TABLET PO SCH (08:34)
[2023-03-24 08:41] VITALS: BP 134/64; PULSE 83; RESP 18; TEMP 96.7; O2SAT 98
[2023-03-24 11:36] LABS: GLUCOMETER DEV NAME(LOC) BV2X.2; GLUCOSE,POINT OF CARE 191 MG/DL (70-110)
[2023-03-24 16:36] LABS: GLUCOMETER DEV NAME(LOC) BV2X.2; GLUCOSE,POINT OF CARE 224 MG/DL (70-110)
[2023-03-24 20:26] LABS: GLUCOMETER DEV NAME(LOC) BV2X.2; GLUCOSE,POINT OF CARE 192 MG/DL (70-110)
[2023-03-24] MEDS: ATORVASTATIN CALCIUM 20 MG TABLET PO SCH (20:51)
[2023-03-24] MEDS: QUEtiapine FUMARATE 300 MG TABLET PO SCH (20:51)
[2023-03-24] MEDS: TraZODone HCL 100 MG TABLET PO SCH (20:51)
[2023-03-24 21:47] VITALS: BP 143/78; PULSE 73; RESP 18; TEMP 98; O2SAT 97
[2023-03-25] MEDS: LEVOTHYROXINE SODIUM 25 MCG TABLET PO SCH (06:07)
[2023-03-25] MEDS: MetFORMIN HCL 500 MG TABLET PO SCH ×2 (06:07→16:40)
[2023-03-25] MEDS: FERROUS SULFATE 325 MG EC TABLET PO SCH ×2 (06:08→16:40)
[2023-03-25] MEDS: INSULIN LISPRO 100 UNITS/ML SQ PRN ×4 (06:09→21:03)
[2023-03-25 06:16] LABS: GLUCOMETER DEV NAME(LOC) BV2X.2; GLUCOSE,POINT OF CARE 155 MG/DL (70-110)
[2023-03-25 09:00] VITALS: BP 152/70; PULSE 73; RESP 16; TEMP 97.4; O2SAT 100
[2023-03-25] MEDS: ASPIRIN 81 MG DR TABLET PO SCH (09:17)
[2023-03-25] MEDS: FOLIC ACID 1 MG TABLET PO SCH (09:17)
[2023-03-25] MEDS: CHOLECALCIFEROL (VIT D3) 1,000 UNITS [25 MCG] TABLET PO SCH (09:18)
[2023-03-25] MEDS: MULTIVITAMINS WITH MINERALS, THERAPEUTIC TABLET PO SCH (09:18)
[2023-03-25] MEDS: BuPROPion HCL 75 MG TABLET PO SCH (09:18)
[2023-03-25] MEDS: THIAMINE 100 MG TABLET PO SCH (09:18)
[2023-03-25] MEDS: AmLODIPine BESYLATE 5 MG TABLET PO SCH (09:18)
[2023-03-25] MEDS: LISINOPRIL 20 MG TABLET PO SCH (09:18)
[2023-03-25 11:51] LABS: GLUCOMETER DEV NAME(LOC) BV2X.2; GLUCOSE,POINT OF CARE 158 MG/DL (70-110)
[2023-03-25 16:15] VITALS: BP 175/84; PULSE 76; RESP 17; TEMP 97.9; O2SAT 98
[2023-03-25 16:32] VITALS: BP 180/74; PULSE 66; RESP 18; TEMP 97.5; O2SAT 98
[2023-03-25 16:32] LABS: GLUCOMETER DEV NAME(LOC) BV2X.2; GLUCOSE,POINT OF CARE 202 MG/DL (70-110)
[2023-03-25] MEDS: CloNIDine HCL 0.1 MG TABLET PO PRN (16:36)
[2023-03-25 17:36] VITALS: BP 156/73; PULSE 67; RESP 17; TEMP 97.8; O2SAT 98
[2023-03-25 20:06] VITALS: BP 139/75; PULSE 71; RESP 17; TEMP 98.9; O2SAT 98
[2023-03-25 20:36] LABS: GLUCOMETER DEV NAME(LOC) BV2X.2; GLUCOSE,POINT OF CARE 229 MG/DL (70-110)
[2023-03-25] MEDS: TraZODone HCL 100 MG TABLET PO SCH (21:00)
[2023-03-25] MEDS: QUEtiapine FUMARATE 300 MG TABLET PO SCH (21:00)
[2023-03-25] MEDS: ATORVASTATIN CALCIUM 20 MG TABLET PO SCH (21:00)
[2023-03-26] MEDS: INSULIN LISPRO 100 UNITS/ML SQ PRN ×4 (06:30→20:23)
[2023-03-26] MEDS: FERROUS SULFATE 325 MG EC TABLET PO SCH ×2 (06:31→16:25)
[2023-03-26] MEDS: LEVOTHYROXINE SODIUM 25 MCG TABLET PO SCH (06:31)
[2023-03-26] MEDS: MetFORMIN HCL 500 MG TABLET PO SCH ×2 (06:32→16:25)
[2023-03-26 06:36] LABS: GLUCOMETER DEV NAME(LOC) BV2X.2; GLUCOSE,POINT OF CARE 145 MG/DL (70-110)
[2023-03-26] MEDS: MULTIVITAMINS WITH MINERALS, THERAPEUTIC TABLET PO SCH (08:16)
[2023-03-26] MEDS: ASPIRIN 81 MG DR TABLET PO SCH (08:16)
[2023-03-26] MEDS: CHOLECALCIFEROL (VIT D3) 1,000 UNITS [25 MCG] TABLET PO SCH (08:16)
[2023-03-26] MEDS: THIAMINE 100 MG TABLET PO SCH (08:16)
[2023-03-26] MEDS: AmLODIPine BESYLATE 5 MG TABLET PO SCH (08:16)
[2023-03-26] MEDS: LISINOPRIL 20 MG TABLET PO SCH (08:16)
[2023-03-26] MEDS: BuPROPion HCL 75 MG TABLET PO SCH (08:17)
[2023-03-26 08:33] VITALS: BP 141/68; PULSE 75; RESP 18; TEMP 98.2; O2SAT 97
[2023-03-26 11:36] LABS: GLUCOMETER DEV NAME(LOC) BV2X.2; GLUCOSE,POINT OF CARE 126 MG/DL (70-110)
[2023-03-26 16:36] LABS: GLUCOMETER DEV NAME(LOC) BV2X.2; GLUCOSE,POINT OF CARE 248 MG/DL (70-110)
[2023-03-26 20:15] VITALS: BP 150/66; PULSE 70; RESP 16; TEMP 97.7; O2SAT 97
[2023-03-26 20:30] LABS: GLUCOMETER DEV NAME(LOC) BV2X.2; GLUCOSE,POINT OF CARE 173 MG/DL (70-110)
[2023-03-26] MEDS: QUEtiapine FUMARATE 300 MG TABLET PO SCH (21:06)
[2023-03-26] MEDS: TraZODone HCL 100 MG TABLET PO SCH (21:06)
[2023-03-26] MEDS: ATORVASTATIN CALCIUM 20 MG TABLET PO SCH (21:06)
[2023-03-27 06:31] LABS: GLUCOMETER DEV NAME(LOC) BV2X.2; GLUCOSE,POINT OF CARE 168 MG/DL (70-110)
[2023-03-27] MEDS: INSULIN LISPRO 100 UNITS/ML SQ PRN ×4 (06:46→20:37)
[2023-03-27] MEDS: MetFORMIN HCL 500 MG TABLET PO SCH ×2 (06:46→16:39)
[2023-03-27] MEDS: LEVOTHYROXINE SODIUM 25 MCG TABLET PO SCH (06:46)
[2023-03-27] MEDS: FERROUS SULFATE 325 MG EC TABLET PO SCH ×2 (06:46→16:38)
[2023-03-27] MEDS: DENTURE ADHESIVE 68 GM CREAM DT PRN (06:47)
[2023-03-27 08:05] VITALS: BP 124/60; PULSE 81; RESP 18; TEMP 98; O2SAT 97
[2023-03-27] MEDS: AmLODIPine BESYLATE 5 MG TABLET PO SCH (08:37)
[2023-03-27] MEDS: BuPROPion HCL 75 MG TABLET PO SCH (08:37)
[2023-03-27] MEDS: CHOLECALCIFEROL (VIT D3) 1,000 UNITS [25 MCG] TABLET PO SCH (08:37)
[2023-03-27] MEDS: MULTIVITAMINS WITH MINERALS, THERAPEUTIC TABLET PO SCH (08:37)
[2023-03-27] MEDS: THIAMINE 100 MG TABLET PO SCH (08:37)
[2023-03-27] MEDS: ASPIRIN 81 MG DR TABLET PO SCH (08:37)
[2023-03-27] MEDS: LISINOPRIL 20 MG TABLET PO SCH (08:38)
[2023-03-27 11:26] LABS: GLUCOMETER DEV NAME(LOC) BV2X.2; GLUCOSE,POINT OF CARE 149 MG/DL (70-110)
[2023-03-27 16:41] LABS: GLUCOMETER DEV NAME(LOC) BV2X.2; GLUCOSE,POINT OF CARE 225 MG/DL (70-110)
[2023-03-27 20:30] VITALS: BP 144/63; PULSE 70; RESP 17; TEMP 98.1; O2SAT 97
[2023-03-27 20:41] LABS: GLUCOMETER DEV NAME(LOC) BV2X.2; GLUCOSE,POINT OF CARE 146 MG/DL (70-110)
[2023-03-27] MEDS: QUEtiapine FUMARATE 300 MG TABLET PO SCH (21:02)
[2023-03-27] MEDS: ATORVASTATIN CALCIUM 20 MG TABLET PO SCH (21:02)
[2023-03-27] MEDS: TraZODone HCL 100 MG TABLET PO SCH (21:02)
[2023-03-28] MEDS: LEVOTHYROXINE SODIUM 25 MCG TABLET PO SCH (06:21)
[2023-03-28] MEDS: INSULIN LISPRO 100 UNITS/ML SQ PRN ×3 (06:21→21:04)
[2023-03-28] MEDS: MetFORMIN HCL 500 MG TABLET PO SCH ×2 (06:21→16:57)
[2023-03-28] MEDS: FERROUS SULFATE 325 MG EC TABLET PO SCH ×2 (06:21→16:57)
[2023-03-28 06:26] LABS: GLUCOMETER DEV NAME(LOC) BV2X.2; GLUCOSE,POINT OF CARE 152 MG/DL (70-110)
[2023-03-28] MEDS: BuPROPion HCL 75 MG TABLET PO SCH (08:46)
[2023-03-28] MEDS: HALOPERIDOL 5 MG TABLET PO PRN (08:47)
[2023-03-28] MEDS: LISINOPRIL 20 MG TABLET PO SCH (08:47)
[2023-03-28] MEDS: CHOLECALCIFEROL (VIT D3) 1,000 UNITS [25 MCG] TABLET PO SCH (08:47)
[2023-03-28] MEDS: ASPIRIN 81 MG DR TABLET PO SCH (08:47)
[2023-03-28] MEDS: THIAMINE 100 MG TABLET PO SCH (08:47)
[2023-03-28] MEDS: MULTIVITAMINS WITH MINERALS, THERAPEUTIC TABLET PO SCH (08:47)
[2023-03-28] MEDS: AmLODIPine BESYLATE 5 MG TABLET PO SCH (08:47)
[2023-03-28 09:11] VITALS: BP 138/75; PULSE 80; RESP 17; TEMP 97.6; O2SAT 97
[2023-03-28 12:01] LABS: GLUCOMETER DEV NAME(LOC) BV2X.2; GLUCOSE,POINT OF CARE 102 MG/DL (70-110)
[2023-03-28] MEDS: DENTURE ADHESIVE 68 GM CREAM DT PRN (14:57)
[2023-03-28 16:42] LABS: GLUCOMETER DEV NAME(LOC) BV2S.; GLUCOSE,POINT OF CARE 174 MG/DL (70-110)
[2023-03-28 20:02] LABS: GLUCOMETER DEV NAME(LOC) BV2X.2; GLUCOSE,POINT OF CARE 191 MG/DL (70-110)
[2023-03-28] MEDS: ATORVASTATIN CALCIUM 20 MG TABLET PO SCH (20:11)
[2023-03-28] MEDS: QUEtiapine FUMARATE 300 MG TABLET PO SCH (20:12)
[2023-03-28] MEDS: TraZODone HCL 100 MG TABLET PO SCH (20:12)
[2023-03-28 20:59] VITALS: BP 146/69; PULSE 85; RESP 18; TEMP 98.5; O2SAT 98
[2023-03-29] MEDS: FERROUS SULFATE 325 MG EC TABLET PO SCH ×2 (06:04→16:49)
[2023-03-29] MEDS: LEVOTHYROXINE SODIUM 25 MCG TABLET PO SCH (06:04)
[2023-03-29] MEDS: MetFORMIN HCL 500 MG TABLET PO SCH ×2 (06:04→16:49)
[2023-03-29] MEDS: INSULIN LISPRO 100 UNITS/ML SQ PRN ×4 (06:30→20:15)
[2023-03-29 06:32] LABS: GLUCOMETER DEV NAME(LOC) BV2X.2; GLUCOSE,POINT OF CARE 143 MG/DL (70-110)
[2023-03-29] MEDS: BuPROPion HCL 75 MG TABLET PO SCH (08:35)
[2023-03-29] MEDS: LISINOPRIL 20 MG TABLET PO SCH (08:35)
[2023-03-29] MEDS: ASPIRIN 81 MG DR TABLET PO SCH (08:35)
[2023-03-29] MEDS: AmLODIPine BESYLATE 5 MG TABLET PO SCH (08:35)
[2023-03-29] MEDS: THIAMINE 100 MG TABLET PO SCH (08:35)
[2023-03-29 08:36] VITALS: BP 130/73; PULSE 80; RESP 18; TEMP 98.8; O2SAT 98
[2023-03-29] MEDS: CHOLECALCIFEROL (VIT D3) 1,000 UNITS [25 MCG] TABLET PO SCH (08:36)
[2023-03-29] MEDS: MULTIVITAMINS WITH MINERALS, THERAPEUTIC TABLET PO SCH (08:36)
[2023-03-29 11:02] LABS: GLUCOMETER DEV NAME(LOC) BV2X.2; GLUCOSE,POINT OF CARE 133 MG/DL (70-110)
[2023-03-29 16:37] LABS: GLUCOMETER DEV NAME(LOC) BV2X.2; GLUCOSE,POINT OF CARE 163 MG/DL (70-110)
[2023-03-29] MEDS: CloNIDine HCL 0.1 MG TABLET PO PRN (17:49)
[2023-03-29 19:52] LABS: GLUCOMETER DEV NAME(LOC) BV2X.2; GLUCOSE,POINT OF CARE 201 MG/DL (70-110)
[2023-03-29 20:42] VITALS: BP 150/72; PULSE 73; RESP 18; TEMP 98.4; O2SAT 97
[2023-03-29] MEDS: QUEtiapine FUMARATE 300 MG TABLET PO SCH (20:55)
[2023-03-29] MEDS: ATORVASTATIN CALCIUM 20 MG TABLET PO SCH (20:55)
[2023-03-29] MEDS: TraZODone HCL 100 MG TABLET PO SCH (20:55)
[2023-03-30] MEDS: LEVOTHYROXINE SODIUM 25 MCG TABLET PO SCH (06:04)
[2023-03-30] MEDS: MetFORMIN HCL 500 MG TABLET PO SCH ×2 (06:04→16:29)
[2023-03-30] MEDS: FERROUS SULFATE 325 MG EC TABLET PO SCH ×2 (06:04→16:29)
[2023-03-30] MEDS: INSULIN LISPRO 100 UNITS/ML SQ PRN ×4 (06:25→20:43)
[2023-03-30 06:28] LABS: GLUCOMETER DEV NAME(LOC) BV2X.2; GLUCOSE,POINT OF CARE 153 MG/DL (70-110)
[2023-03-30 08:13] VITALS: BP 135/73; PULSE 95; RESP 18; TEMP 96.8; O2SAT 98
[2023-03-30 08:20] LABS: HEMOGLOBIN A1C 10.7 % (3.8-5.6)
[2023-03-30 08:22] LABS: CHOL/HDL RATIO 1.9 (4.2-7.3)
[2023-03-30] MEDS: BuPROPion HCL 75 MG TABLET PO SCH (08:37)
[2023-03-30] MEDS: CHOLECALCIFEROL (VIT D3) 1,000 UNITS [25 MCG] TABLET PO SCH (08:37)
[2023-03-30] MEDS: AmLODIPine BESYLATE 5 MG TABLET PO SCH (08:37)
[2023-03-30] MEDS: THIAMINE 100 MG TABLET PO SCH (08:37)
[2023-03-30] MEDS: LISINOPRIL 20 MG TABLET PO SCH (08:37)
[2023-03-30] MEDS: ASPIRIN 81 MG DR TABLET PO SCH (08:41)
[2023-03-30] MEDS: MULTIVITAMINS WITH MINERALS, THERAPEUTIC TABLET PO SCH (08:53)
[2023-03-30 11:28] LABS: GLUCOMETER DEV NAME(LOC) BV2X.2; GLUCOSE,POINT OF CARE 139 MG/DL (70-110)
[2023-03-30 16:36] LABS: GLUCOMETER DEV NAME(LOC) BV2X.2; GLUCOSE,POINT OF CARE 155 MG/DL (70-110)
[2023-03-30] MEDS: DENTURE ADHESIVE 68 GM CREAM DT PRN (16:44)
[2023-03-30 20:05] VITALS: BP 157/72; PULSE 73; RESP 19; TEMP 97.6; O2SAT 97
[2023-03-30 20:36] LABS: GLUCOMETER DEV NAME(LOC) BV2X.2; GLUCOSE,POINT OF CARE 135 MG/DL (70-110)
[2023-03-30] MEDS: QUEtiapine FUMARATE 300 MG TABLET PO SCH (21:04)
[2023-03-30] MEDS: TraZODone HCL 100 MG TABLET PO SCH (21:04)
[2023-03-30] MEDS: ATORVASTATIN CALCIUM 20 MG TABLET PO SCH (21:04)
[2023-03-31 06:21] LABS: GLUCOMETER DEV NAME(LOC) BV2X.2; GLUCOSE,POINT OF CARE 146 MG/DL (70-110)
[2023-03-31] MEDS: MetFORMIN HCL 500 MG TABLET PO SCH ×2 (06:44→16:36)
[2023-03-31] MEDS: FERROUS SULFATE 325 MG EC TABLET PO SCH ×2 (06:44→16:36)
[2023-03-31] MEDS: LEVOTHYROXINE SODIUM 25 MCG TABLET PO SCH (06:44)
[2023-03-31] MEDS: INSULIN LISPRO 100 UNITS/ML SQ PRN ×3 (06:44→20:32)
[2023-03-31 08:13] VITALS: BP 116/63; PULSE 16; RESP 16; TEMP 96.5; O2SAT 97
[2023-03-31] MEDS: BuPROPion HCL 75 MG TABLET PO SCH (08:30)
[2023-03-31] MEDS: THIAMINE 100 MG TABLET PO SCH (08:30)
[2023-03-31] MEDS: ASPIRIN 81 MG DR TABLET PO SCH (08:30)
[2023-03-31] MEDS: LISINOPRIL 20 MG TABLET PO SCH (08:30)
[2023-03-31] MEDS: MULTIVITAMINS WITH MINERALS, THERAPEUTIC TABLET PO SCH (08:30)
[2023-03-31] MEDS: CHOLECALCIFEROL (VIT D3) 1,000 UNITS [25 MCG] TABLET PO SCH (08:30)
[2023-03-31] MEDS: AmLODIPine BESYLATE 5 MG TABLET PO SCH (08:35)
[2023-03-31 12:01] LABS: GLUCOMETER DEV NAME(LOC) BV2X.2; GLUCOSE,POINT OF CARE 130 MG/DL (70-110)
[2023-03-31 16:31] LABS: GLUCOMETER DEV NAME(LOC) BV2X.2; GLUCOSE,POINT OF CARE 140 MG/DL (70-110)
[2023-03-31 20:24] VITALS: BP 156/76; PULSE 70; RESP 18; TEMP 98.7; O2SAT 98
[2023-03-31 20:26] LABS: GLUCOMETER DEV NAME(LOC) BV2X.2; GLUCOSE,POINT OF CARE 171 MG/DL (70-110)
[2023-03-31] MEDS ORDERED: QUET300T19 PO (20:55)
[2023-03-31] MEDS ORDERED: BUPR-344 PO (20:55)
[2023-03-31] MEDS: TraZODone HCL 100 MG TABLET PO SCH (20:58)
[2023-03-31] MEDS: QUEtiapine FUMARATE 300 MG TABLET PO SCH (20:58)
[2023-03-31] MEDS: ATORVASTATIN CALCIUM 20 MG TABLET PO SCH (20:58)
[2023-04-01 06:41] LABS: GLUCOMETER DEV NAME(LOC) BV2X.2; GLUCOSE,POINT OF CARE 146 MG/DL (70-110)
[2023-04-01] MEDS: LEVOTHYROXINE SODIUM 25 MCG TABLET PO SCH (06:42)
[2023-04-01] MEDS: FERROUS SULFATE 325 MG EC TABLET PO SCH (06:43)
[2023-04-01] MEDS: MetFORMIN HCL 500 MG TABLET PO SCH (06:43)
[2023-04-01] MEDS: INSULIN LISPRO 100 UNITS/ML SQ PRN (06:52)
[2023-04-01] MEDS: MULTIVITAMINS WITH MINERALS, THERAPEUTIC TABLET PO SCH (08:13)
[2023-04-01] MEDS: CHOLECALCIFEROL (VIT D3) 1,000 UNITS [25 MCG] TABLET PO SCH (08:13)
[2023-04-01] MEDS: BuPROPion HCL 75 MG TABLET PO SCH (08:13)
[2023-04-01] MEDS: ASPIRIN 81 MG DR TABLET PO SCH (08:14)
[2023-04-01] MEDS: AmLODIPine BESYLATE 5 MG TABLET PO SCH (08:14)
[2023-04-01] MEDS: THIAMINE 100 MG TABLET PO SCH (08:14)
[2023-04-01] MEDS: LISINOPRIL 20 MG TABLET PO SCH (08:14)
[2023-04-01 08:19] VITALS: BP 149/75; PULSE 65; RESP 18; TEMP 97.5; O2SAT 96
[2023-04-01] MEDS ORDERED: LISI-894 PO (09:09)
[2023-04-01] MEDS ORDERED: AMLO-258 PO (09:12)
[2023-04-01] MEDS ORDERED: LEVO25TA9 PO (09:13)
[2023-04-01] MEDS ORDERED: ASPI-1450 PO (09:14)
[2023-04-01] MEDS ORDERED: METF-1211 PO (09:16)
[2023-04-01] MEDS ORDERED: FERR325T27 PO (09:18)
[2023-04-01] MEDS ORDERED: ATOR20TA PO (09:23)
== END 2023-04-01 10:20 | disposition home or self-care (01) | DRG 885 ==
LOC: B2X 17:54
PROVIDERS: ADMIT Psychiatry & Neurology Psychiatry; ATTEND Psychiatry & Neurology Psychiatry
DX: F31.9 Bipolar disorder, unspecified (principal); E11.65 Type 2 diabetes mellitus with hyperglycemia; R45.851 Suicidal ideations; F41.9 Anxiety disorder, unspecified; K21.9 Gastro-esophageal reflux disease without esophagitis; G47.00 Insomnia, unspecified; F10.20 Alcohol dependence, uncomplicated; E03.9 Hypothyroidism, unspecified; I10 Essential (primary) hypertension; E78.5 Hyperlipidemia, unspecified; Z20.822 Contact with and (suspected) exposure to COVID-19
CPT/HCPCS: 80053; 80061; 80307; 81001; 82948; 82962; 83036; 84439; 84443; 85025; 87081

== ENCOUNTER 2024-07-01 15:44 | Emergency (ER) | payer MEDICARE, MEDICAID ==
[~2024-07-01] VITALS: Ht 175.3 cm; Wt 104.5 kg
[~2024-07-01 15:44] MED LIST changes: -AMLO-257 PO; +AMLO-258 PO; +ASPI-1450 PO; -ASPI81TA87 PO; +ATOR20TA PO; -ATOR20TA65 PO; +FERR325T27 PO; -LISI-662 PO; +LISI-894 PO; -TRAZ-257 PO
[2024-07-01] MEDS: FAMOTIDINE 20 MG/2 ML VIAL IVP ONE (18:25)
[2024-07-01] MEDS: SODIUM CHLORIDE 0.9% 1,000 ML IV ONE (18:25)
[2024-07-01] MEDS: ChlordiazePOXIDE HCL 25 MG CAPSULE PO ONE (18:25)
[2024-07-01 18:29] LABS: BASOPHILS % (AUTO) 0.8 % (0.0-2.0); EOSINOPHILS % (AUTO) 0.3 % (1.0-6.0); HEMATOCRIT 39.2 % (41-53); HEMOGLOBIN 12.4 g/dL (13.5-17.5); LYMPHOCYTES # (AUTO) 2.3 K/uL (1.0-4.8); LYMPHOCYTES % (AUTO) 32.4 % (22.0-44.0); MEAN CORPUSCULAR HEMOGLOBIN 21.6 pg (26.0-34.0); MEAN CORPUSCULAR HGB CONC 31.6 G/dL (31.0-37.0); MEAN CORPUSCULAR VOLUME 69 fL (80-100); MONOCYTES # (AUTO) 0.7 K/uL (0.1-1.0); MONOCYTES % (AUTO) 9.9 % (2.0-9.0); NEUTROPHILS % (AUTO) 56.6 % (40.0-70.0); PLATELET COUNT (AUTO) 268 K/uL (150-450); RED BLOOD CELL COUNT(AUTO) 5.72 MIL/uL (4.50-5.90); RED CELL DISTRIBUTION WIDTH 16.9 % (11.5-14.5); WHITE BLOOD COUNT (AUTO) 7.1 K/uL (4.5-11.0)
[2024-07-01 18:38] LABS: ANION GAP 14 mmol/L (8-16); CALCIUM, TOTAL 8.2 mg/dL (8.8-10.5); CARBON DIOXIDE 26 mmol/L (22-29); CHLORIDE 99 mmol/L (98-107); GLOMERULAR FILTR. RATE CALC > 60 mL/min (>60); GLUCOSE,RANDOM 168 mg/dL (70-110); POTASSIUM 3.5 mmol/L (3.5-5.1); SODIUM SERUM 139 mmol/L (136-145); UREA NITROGEN, BLOOD 9 mg/dL (7-18)
[2024-07-01 18:39] LABS: ALCOHOL, BLOOD (SERUM) 47 mg/dL (0-10)
[2024-07-01 18:57] LABS: COVID AG,FIA SOURCE NASAL SWAB
[2024-07-01 19:30] VITALS: BP 142/73; PULSE 87; RESP 15; TEMP 98.6; O2SAT 98
[2024-07-01 19:30] LABS: RBC MORPHOLOGY COMMENT ABNORMAL RBC MORPH
[2024-07-01 19:36] LABS: SARS-COV2 (COVID) ANTIGEN,FIA Negative (Negative)
[2024-07-03 11:31] LABS: GLUCOMETER DEV NAME(LOC) BV2X.3; GLUCOSE,POINT OF CARE 358 MG/DL (70-110)
[2024-07-03 16:51] LABS: GLUCOMETER DEV NAME(LOC) BV2X.3; GLUCOSE,POINT OF CARE 174 MG/DL (70-110)
== END 2024-07-01 21:01 | disposition home or self-care (01) ==
LOC: EMS 15:44
DX: F10.10 Alcohol abuse, uncomplicated (principal); F32.A Depression, unspecified; F41.9 Anxiety disorder, unspecified; R45.851 Suicidal ideations; Z79.899 Other long term (current) drug therapy; Z20.822 Contact with and (suspected) exposure to COVID-19; Y90.6 Blood alcohol level of 120-199 mg/100 ml
CPT/HCPCS: 99285; 96374; 96361; 87426; 80048; 82962; 85025; 36415; G0480; J3490; J7030

== ENCOUNTER 2024-07-01 21:43 | Inpatient (IN) | payer MEDICARE, MEDICAID ==
[~2024-07-01] VITALS: Ht 167.6 cm; Wt 114.3 kg
[2024-07-01] MEDS ORDERED: HALOPERIDOL 5 MG TABLET PO PRN (23:00)
[2024-07-01 23:30] VITALS: BP 140/69; PULSE 100; RESP 18; TEMP 98.1; O2SAT 96
[2024-07-01] MEDS ORDERED: GLUCAGON,HUMAN RECOMBINANT 1 MG VIAL IM PRN (23:30)
[2024-07-02] MEDS: QUEtiapine FUMARATE 300 MG TABLET PO SCH
[2024-07-02] MEDS: TraZODone HCL 150 MG TABLET PO SCH
[2024-07-02 01:40] VITALS: BP 164/82; PULSE 93; RESP 19; TEMP 97.8; O2SAT 97
[2024-07-02 01:42] VITALS: BP 164/82; PULSE 93; RESP 19; TEMP 97.8; O2SAT 97
[2024-07-02 03:41] VITALS: BP 164/82; PULSE 93; RESP 19; TEMP 97.8; O2SAT 97
[2024-07-02 04:21] LABS: GLUCOMETER DEV NAME(LOC) BV2X.3; GLUCOSE,POINT OF CARE 176 MG/DL (70-110)
[2024-07-02] MEDS: LORazepam 2 MG TABLET PO PRN (04:23)
[2024-07-02] MEDS: ASPIRIN 81 MG CHEWABLE TABLET PO SCH (06:00)
[2024-07-02] MEDS: GlipiZIDE 5 MG TABLET PO SCH (06:00)
[2024-07-02] MEDS: MetFORMIN HCL 500 MG TABLET PO SCH (06:01)
[2024-07-02] MEDS: FERROUS SULFATE 325 MG EC TABLET PO SCH (06:01)
[2024-07-02] MEDS: LEVOTHYROXINE SODIUM 25 MCG TABLET PO SCH (06:17)
[2024-07-02 07:15] LABS: GLUCOMETER DEV NAME(LOC) BV2X.3; GLUCOSE,POINT OF CARE 159 MG/DL (70-110)
[2024-07-02] MEDS: LinaGLIPtin 5 MG TABLET PO SCH (08:12)
[2024-07-02] MEDS: AmLODIPine BESYLATE 10 MG TABLET PO SCH (08:13)
[2024-07-02 08:21] VITALS: BP 148/83; PULSE 96; RESP 16; O2SAT 97
[2024-07-02 08:52] LABS: BASOPHILS % (AUTO) 0.4 % (0.0-2.0); EOSINOPHILS % (AUTO) 0.3 % (1.0-6.0); HEMATOCRIT 35.6 % (41-53); HEMOGLOBIN 11.2 g/dL (13.5-17.5); LYMPHOCYTES # (AUTO) 2.3 K/uL (1.0-4.8); LYMPHOCYTES % (AUTO) 37.1 % (22.0-44.0); MEAN CORPUSCULAR HEMOGLOBIN 21.5 pg (26.0-34.0); MEAN CORPUSCULAR HGB CONC 31.6 G/dL (31.0-37.0); MEAN CORPUSCULAR VOLUME 68 fL (80-100); MONOCYTES # (AUTO) 0.6 K/uL (0.1-1.0); MONOCYTES % (AUTO) 8.9 % (2.0-9.0); NEUTROPHILS # (AUTO) 3.4 K/uL (1.8-7.7); NEUTROPHILS % (AUTO) 53.3 % (40.0-70.0); PLATELET COUNT (AUTO) 237 K/uL (150-450); RED BLOOD CELL COUNT(AUTO) 5.21 MIL/uL (4.50-5.90); WHITE BLOOD COUNT (AUTO) 6.3 K/uL (4.5-11.0)
[2024-07-02 08:54] LABS: HEMOGLOBIN A1C 7.7 % (3.8-5.6)
[2024-07-02] MEDS ORDERED: CloNIDine HCL 0.1 MG TABLET PO PRN (09:00)
[2024-07-02] MEDS ORDERED: IBUPROFEN 600 MG TABLET PO PRN (09:00)
[2024-07-02 09:07] LABS: ALANINE AMINOTRANSFERASE 17 U/L (12-78); ALBUMIN 3.1 g/dL (3.4-5.0); ALKALINE PHOSPHATASE 107 U/L (46-116); ANION GAP 10 mmol/L (8-16); ASPARTATE AMINOTRANSFERASE 19 U/L (15-37); BILIRUBIN,TOTAL 0.5 mg/dL (0.1-1.0); CALCIUM, TOTAL 7.9 mg/dL (8.8-10.5); CARBON DIOXIDE 30 mmol/L (22-29); CHLORIDE 98 mmol/L (98-107); CHOL/HDL RATIO 2.5 (4.2-7.3); CHOLESTEROL 181 mg/dL (131-200); CREATININE 0.82 mg/dL (0.60-1.30); FREE T4 (FREE THYROXINE) 0.81 ng/dL (0.76-1.46); GLOMERULAR FILTR. RATE CALC > 60 mL/min (>60); GLUCOSE,RANDOM 163 mg/dL (70-110); HDL CHOLESTEROL 73 mg/dL (40-60); LDL CHOL (CALC.) 56 mg/dL (0-130); POTASSIUM 3.2 mmol/L (3.5-5.1); SODIUM SERUM 138 mmol/L (136-145); THYROID STIMULATING HORMONE 5.69 uIU/mL (0.36-3.74); TOTAL PROTEIN, SERUM 6.4 g/dL (6.4-8.2); TRIGLYCERIDES 262 mg/dL (15-150); UREA NITROGEN, BLOOD 11 mg/dL (7-18)
[2024-07-02 10:00] VITALS: BP 148/83; PULSE 96; RESP 18; TEMP 98.2; O2SAT 97
[2024-07-02 10:18] LABS: RBC MORPHOLOGY COMMENT ABNORMAL RBC MORPH
[2024-07-02] MEDS ORDERED: TraZODone HCL 150 MG TABLET PO PRN (11:15)
[2024-07-02] MEDS: POTASSIUM CHLORIDE 20 MEQ ER TABLET PO ONE (12:23)
[2024-07-02] MEDS: LISINOPRIL 20 MG TABLET PO SCH (12:23)
[2024-07-02] MEDS: INSULIN LISPRO 100 UNITS/ML SQ PRN (13:15)
[2024-07-02 13:41] LABS: GLUCOMETER DEV NAME(LOC) BV2X.3; GLUCOSE,POINT OF CARE 185 MG/DL (70-110)
[2024-07-02 17:30] LABS: GLUCOMETER DEV NAME(LOC) BV2X.3; GLUCOSE,POINT OF CARE 173 MG/DL (70-110)
[2024-07-02 20:00] VITALS: BP 139/69; PULSE 92; RESP 18; TEMP 98.3; O2SAT 95
[2024-07-02] MEDS ORDERED: QUEtiapine FUMARATE 300 MG TABLET PO SCH (21:00)
[2024-07-02] MEDS: ZOLPIDEM TARTRATE 10 MG TABLET PO PRN (21:23)
[2024-07-02] MEDS: ATORVASTATIN CALCIUM 20 MG TABLET PO SCH (21:23)
[2024-07-02 22:55] LABS: GLUCOMETER DEV NAME(LOC) BV2X.3; GLUCOSE,POINT OF CARE 215 MG/DL (70-110)
[2024-07-03] MEDS: GlipiZIDE 10 MG TABLET PO SCH (06:39)
[2024-07-03 06:46] LABS: GLUCOMETER DEV NAME(LOC) BV2X.3; GLUCOSE,POINT OF CARE 229 MG/DL (70-110)
[2024-07-03 17:49] VITALS: BP 123/64; PULSE 88; RESP 18; TEMP 97.3; O2SAT 98
[2024-07-03 20:31] LABS: GLUCOMETER DEV NAME(LOC) BV2X.3; GLUCOSE,POINT OF CARE 181 MG/DL (70-110)
[2024-07-03 21:07] VITALS: BP 136/74; PULSE 90; RESP 18; TEMP 97.7; O2SAT 96
[2024-07-03 22:00] VITALS: BP 136/74; PULSE 90; RESP 18; TEMP 97.7; O2SAT 96
[2024-07-04 06:30] LABS: GLUCOMETER DEV NAME(LOC) BV2X.3; GLUCOSE,POINT OF CARE 147 MG/DL (70-110)
[2024-07-04 08:24] VITALS: BP 143/64; PULSE 94; RESP 18; TEMP 98
[2024-07-04 11:25] LABS: GLUCOMETER DEV NAME(LOC) BV2X.3; GLUCOSE,POINT OF CARE 168 MG/DL (70-110)
[2024-07-04 16:51] LABS: GLUCOMETER DEV NAME(LOC) BV2X.3; GLUCOSE,POINT OF CARE 143 MG/DL (70-110)
[2024-07-04 20:14] VITALS: BP 145/75; PULSE 81; RESP 18; TEMP 97.7; O2SAT 96
[2024-07-04 20:30] VITALS: BP 145/75; PULSE 81; RESP 18; TEMP 97.7; O2SAT 96
[2024-07-04 20:51] LABS: GLUCOMETER DEV NAME(LOC) BV2X.3; GLUCOSE,POINT OF CARE 133 MG/DL (70-110)
[2024-07-05 06:21] LABS: GLUCOMETER DEV NAME(LOC) BV2X.3; GLUCOSE,POINT OF CARE 147 MG/DL (70-110)
[2024-07-05 09:45] VITALS: BP 114/83; PULSE 98; RESP 18; TEMP 98; O2SAT 97
[2024-07-05 09:46] LABS: ALCOHOL, URINE DRUG SCREEN NEGATIVE (NEGATIVE); AMPHET/METH SCREEN,URINE NEGATIVE (NEGATIVE); BARBITURATE SCREEN, URINE NEGATIVE (NEGATIVE); BENZODIAZEPINES SCREEN,URINE POSITIVE (NEGATIVE); CANNABINOID SCREEN,URINE NEGATIVE (NEGATIVE); COCAINE SCREEN,URINE NEGATIVE (NEGATIVE); CREATININE,URINE RANDOM 132.1 mg/dL (30.0-125.0); METHADONE SCREEN, URINE NEGATIVE (NEGATIVE); OPIATE SCREEN,URINE NEGATIVE (NEGATIVE); PHENCYCLIDINE SCREEN,URINE NEGATIVE (NEGATIVE)
[2024-07-05 11:13] VITALS: BP 114/83; PULSE 98; RESP 18; TEMP 97.7; O2SAT 97
[2024-07-05 12:11] LABS: GLUCOMETER DEV NAME(LOC) BV2X.3; GLUCOSE,POINT OF CARE 141 MG/DL (70-110)
[2024-07-05 16:30] LABS: GLUCOMETER DEV NAME(LOC) BV2X.3; GLUCOSE,POINT OF CARE 92 MG/DL (70-110)
[2024-07-05 20:10] VITALS: BP 119/71; PULSE 70; RESP 18; TEMP 97.5; O2SAT 97
[2024-07-05 20:30] LABS: GLUCOMETER DEV NAME(LOC) BV2X.3; GLUCOSE,POINT OF CARE 150 MG/DL (70-110)
[2024-07-05 23:19] VITALS: BP 119/71; PULSE 70; RESP 18; TEMP 97.5; O2SAT 97
[2024-07-06 05:55] LABS: GLUCOMETER DEV NAME(LOC) BV2X.3; GLUCOSE,POINT OF CARE 137 MG/DL (70-110)
[2024-07-06 06:06] LABS: CREATININE, URINE (mALB) 118.9 mg/dL (Not Estab.)
[2024-07-06 08:08] VITALS: BP 130/53; PULSE 71; RESP 17; TEMP 96.4; O2SAT 99
[2024-07-06 10:50] VITALS: BP 130/53; PULSE 71; RESP 17; TEMP 96.4; O2SAT 98
[2024-07-06 11:35] LABS: GLUCOMETER DEV NAME(LOC) BV2X.3; GLUCOSE,POINT OF CARE 132 MG/DL (70-110)
[2024-07-06 14:59] VITALS: RESP 18; O2SAT 96
[2024-07-06] MEDS: ACETAMINOPHEN 325 MG TABLET PO PRN (14:59)
[2024-07-06 16:00] VITALS: RESP 18
[2024-07-06 16:31] LABS: GLUCOMETER DEV NAME(LOC) BV2X.3; GLUCOSE,POINT OF CARE 167 MG/DL (70-110)
[2024-07-06 20:20] LABS: GLUCOMETER DEV NAME(LOC) BV2X.3; GLUCOSE,POINT OF CARE 115 MG/DL (70-110)
[2024-07-06 21:06] VITALS: BP 135/78; PULSE 98; RESP 18; TEMP 98.3; O2SAT 97
[2024-07-07 06:36] LABS: GLUCOMETER DEV NAME(LOC) BV2X.3; GLUCOSE,POINT OF CARE 147 MG/DL (70-110)
[2024-07-07 08:14] VITALS: BP 134/67; PULSE 63; RESP 17; TEMP 97.6; O2SAT 96
[2024-07-07 08:49] VITALS: BP 134/67; PULSE 63; RESP 17; TEMP 97.6; O2SAT 96
[2024-07-07 12:06] LABS: GLUCOMETER DEV NAME(LOC) BV2X.3; GLUCOSE,POINT OF CARE 75 MG/DL (70-110)
[2024-07-07 16:46] LABS: GLUCOMETER DEV NAME(LOC) BV2X.3; GLUCOSE,POINT OF CARE 124 MG/DL (70-110)
[2024-07-07 20:15] VITALS: BP 132/70; PULSE 85; RESP 16; TEMP 97.7; O2SAT 97
[2024-07-07 21:05] LABS: GLUCOMETER DEV NAME(LOC) BV2X.3; GLUCOSE,POINT OF CARE 124 MG/DL (70-110)
[2024-07-07 21:35] VITALS: BP 137/79; PULSE 91; RESP 18; TEMP 97.8; O2SAT 98
[2024-07-08 06:05] LABS: GLUCOMETER DEV NAME(LOC) BV2X.3; GLUCOSE,POINT OF CARE 128 MG/DL (70-110)
[2024-07-08 08:00] VITALS: BP 136/74; PULSE 83; RESP 16; TEMP 98.5; O2SAT 97
[2024-07-08 11:35] LABS: GLUCOMETER DEV NAME(LOC) BV2X.3; GLUCOSE,POINT OF CARE 107 MG/DL (70-110)
[2024-07-08 12:55] VITALS: BP 129/64; PULSE 90; RESP 16; O2SAT 98
[2024-07-08 16:31] LABS: GLUCOMETER DEV NAME(LOC) BV2X.3; GLUCOSE,POINT OF CARE 103 MG/DL (70-110)
[2024-07-08] MEDS: INFLUENZA VIRUS VACCINE TVS (6MO+) 2024-25/PF 45 MCG/0.5 ML SYRINGE IM. ONE (20:00)
[2024-07-08] MEDS: PNEUMOCOCCAL VACCINE POLYVALENT 0.5 ML SYRINGE [PPSV23] IM. ONE (20:01)
[2024-07-08 20:20] VITALS: BP 131/74; PULSE 97; RESP 18; TEMP 98.8; O2SAT 96
[2024-07-08 20:41] LABS: GLUCOMETER DEV NAME(LOC) BV2X.3; GLUCOSE,POINT OF CARE 122 MG/DL (70-110)
[2024-07-09] VITALS (10 sets, daily range): BP systolic 112–145; BP diastolic 62–107; PULSE 74–105; RESP 16–18; TEMP 97.6–98.3; O2SAT 95–98
[2024-07-09 06:30] LABS: GLUCOMETER DEV NAME(LOC) BV2X.3; GLUCOSE,POINT OF CARE 124 MG/DL (70-110)
[2024-07-09 12:30] LABS: GLUCOMETER DEV NAME(LOC) BV2X.3; GLUCOSE,POINT OF CARE 134 MG/DL (70-110)
[2024-07-09 16:46] LABS: GLUCOMETER DEV NAME(LOC) BV2X.3; GLUCOSE,POINT OF CARE 174 MG/DL (70-110)
[2024-07-09 20:45] LABS: GLUCOMETER DEV NAME(LOC) BV2X.3; GLUCOSE,POINT OF CARE 112 MG/DL (70-110)
[2024-07-10 06:06] LABS: GLUCOMETER DEV NAME(LOC) BV2X.3; GLUCOSE,POINT OF CARE 158 MG/DL (70-110)
[2024-07-10 08:33] VITALS: BP 134/73; PULSE 100; RESP 18; TEMP 97.7; O2SAT 97
[2024-07-10 11:45] LABS: GLUCOMETER DEV NAME(LOC) BV2X.3; GLUCOSE,POINT OF CARE 75 MG/DL (70-110)
[2024-07-10 12:25] VITALS: BP 145/70; PULSE 95; RESP 16; O2SAT 95
[2024-07-10 16:35] LABS: GLUCOMETER DEV NAME(LOC) BV2X.3; GLUCOSE,POINT OF CARE 196 MG/DL (70-110)
[2024-07-10 20:09] VITALS: BP 150/68; PULSE 92; RESP 16; TEMP 99.3; O2SAT 97
[2024-07-10 21:00] LABS: GLUCOMETER DEV NAME(LOC) BV2X.3; GLUCOSE,POINT OF CARE 112 MG/DL (70-110)
[2024-07-10 21:02] VITALS: BP 138/75; PULSE 88; RESP 16; TEMP 98
[2024-07-10 21:03] VITALS: BP 138/75; PULSE 88; RESP 16; TEMP 98; O2SAT 97
[2024-07-11 08:08] VITALS: BP 112/84; PULSE 68; RESP 17; TEMP 97.8; O2SAT 95
[2024-07-11 11:55] LABS: GLUCOMETER DEV NAME(LOC) BV2X.3; GLUCOSE,POINT OF CARE 122 MG/DL (70-110)
[2024-07-11 17:26] LABS: GLUCOMETER DEV NAME(LOC) BV2X.3; GLUCOSE,POINT OF CARE 110 MG/DL (70-110)
[2024-07-11 20:14] VITALS: BP 130/64; PULSE 89; RESP 16; TEMP 98.1; O2SAT 96
[2024-07-11 20:40] LABS: GLUCOMETER DEV NAME(LOC) BV2X.3; GLUCOSE,POINT OF CARE 172 MG/DL (70-110)
[2024-07-11 21:04] VITALS: BP 127/75; PULSE 76; RESP 18; TEMP 97.9
[2024-07-12 07:01] LABS: GLUCOMETER DEV NAME(LOC) BV2X.3; GLUCOSE,POINT OF CARE 118 MG/DL (70-110)
[2024-07-12 08:06] VITALS: BP 129/88; PULSE 85; RESP 12; RESP 17; TEMP 97.1; O2SAT 96
[2024-07-12 16:31] LABS: GLUCOMETER DEV NAME(LOC) BV2X.3; GLUCOSE,POINT OF CARE 208 MG/DL (70-110)
[2024-07-12 20:13] VITALS: BP 128/79; PULSE 98; RESP 18; TEMP 97.9
[2024-07-13 05:51] LABS: GLUCOMETER DEV NAME(LOC) BV2X.3; GLUCOSE,POINT OF CARE 169 MG/DL (70-110)
[2024-07-13 11:36] LABS: GLUCOMETER DEV NAME(LOC) BV2X.3; GLUCOSE,POINT OF CARE 113 MG/DL (70-110)
[2024-07-13 14:27] VITALS: BP 142/100; PULSE 75; RESP 17; TEMP 97.2; O2SAT 97
[2024-07-13 16:31] LABS: GLUCOMETER DEV NAME(LOC) BV2X.3; GLUCOSE,POINT OF CARE 179 MG/DL (70-110)
[2024-07-13 20:35] VITALS: BP 129/69; PULSE 72; RESP 18; TEMP 98.3; O2SAT 98
[2024-07-13 20:41] LABS: GLUCOMETER DEV NAME(LOC) BV2X.3; GLUCOSE,POINT OF CARE 109 MG/DL (70-110)
[2024-07-14 06:17] LABS: GLUCOMETER DEV NAME(LOC) BV2X.3; GLUCOSE,POINT OF CARE 125 MG/DL (70-110)
[2024-07-14 08:04] VITALS: BP 111/65; PULSE 100; RESP 16; TEMP 97.7; O2SAT 97
[2024-07-14 11:31] LABS: GLUCOMETER DEV NAME(LOC) BV2X.3; GLUCOSE,POINT OF CARE 84 MG/DL (70-110)
[2024-07-14 12:10] VITALS: BP 129/74; PULSE 83; RESP 16; O2SAT 96
[2024-07-14 17:05] LABS: GLUCOMETER DEV NAME(LOC) BV2X.3; GLUCOSE,POINT OF CARE 164 MG/DL (70-110)
[2024-07-14 20:40] LABS: GLUCOMETER DEV NAME(LOC) BV2X.3; GLUCOSE,POINT OF CARE 105 MG/DL (70-110)
[2024-07-14 20:57] VITALS: BP 152/83; PULSE 77; RESP 15; TEMP 97.2; O2SAT 99
[2024-07-15 06:11] LABS: GLUCOMETER DEV NAME(LOC) BV2X.3; GLUCOSE,POINT OF CARE 123 MG/DL (70-110)
[2024-07-15 08:16] VITALS: BP 140/67; PULSE 91; RESP 19; TEMP 98.3; O2SAT 96
[2024-07-15 12:25] VITALS: BP 140/72; PULSE 89; RESP 16; O2SAT 98
[2024-07-15 12:36] LABS: GLUCOMETER DEV NAME(LOC) BV2X.3; GLUCOSE,POINT OF CARE 102 MG/DL (70-110)
[2024-07-15 17:01] LABS: GLUCOMETER DEV NAME(LOC) BV2X.3; GLUCOSE,POINT OF CARE 134 MG/DL (70-110)
[2024-07-15 20:17] VITALS: BP 150/75; PULSE 84; RESP 16; TEMP 98; O2SAT 95
[2024-07-15 20:50] LABS: GLUCOMETER DEV NAME(LOC) BV2X.3; GLUCOSE,POINT OF CARE 110 MG/DL (70-110)
[2024-07-16 06:40] LABS: GLUCOMETER DEV NAME(LOC) BV2X.3; GLUCOSE,POINT OF CARE 138 MG/DL (70-110)
[2024-07-16 08:28] VITALS: BP 155/64; PULSE 95; RESP 18; TEMP 97.3; O2SAT 98
[2024-07-16 12:11] LABS: GLUCOMETER DEV NAME(LOC) BV2X.3; GLUCOSE,POINT OF CARE 73 MG/DL (70-110)
[2024-07-16 16:41] LABS: GLUCOMETER DEV NAME(LOC) BV2X.3; GLUCOSE,POINT OF CARE 154 MG/DL (70-110)
[2024-07-16 20:00] VITALS: BP 131/74; PULSE 80; RESP 18; TEMP 98.1; O2SAT 95
[2024-07-16 22:46] LABS: GLUCOMETER DEV NAME(LOC) BV2X.3; GLUCOSE,POINT OF CARE 133 MG/DL (70-110)
[2024-07-17 05:50] LABS: GLUCOMETER DEV NAME(LOC) BV2X.3; GLUCOSE,POINT OF CARE 124 MG/DL (70-110)
[2024-07-17 08:34] VITALS: BP 135/72; PULSE 101; RESP 18; TEMP 98.4; O2SAT 96
[2024-07-17 09:35] LABS: GLUCOMETER DEV NAME(LOC) BV2X.3; GLUCOSE,POINT OF CARE 101 MG/DL (70-110)
[2024-07-17 17:10] LABS: GLUCOMETER DEV NAME(LOC) BV2X.3; GLUCOSE,POINT OF CARE 165 MG/DL (70-110)
[2024-07-17 17:10] LABS: GLUCOMETER DEV NAME(LOC) BV2X.3; GLUCOSE,POINT OF CARE 101 MG/DL (70-110)
[2024-07-17 20:07] VITALS: BP 138/68; PULSE 99; RESP 18; TEMP 98; O2SAT 95
[2024-07-17 20:40] LABS: GLUCOMETER DEV NAME(LOC) BV2X.3; GLUCOSE,POINT OF CARE 108 MG/DL (70-110)
[2024-07-18 05:56] LABS: GLUCOMETER DEV NAME(LOC) BV2X.3; GLUCOSE,POINT OF CARE 134 MG/DL (70-110)
[2024-07-18 08:08] VITALS: BP 125/66; PULSE 89; RESP 17; TEMP 98.3; O2SAT 96
[2024-07-18 08:36] LABS: ANION GAP 7 mmol/L (8-16); CALCIUM, TOTAL 8.4 mg/dL (8.8-10.5); CARBON DIOXIDE 29 mmol/L (22-29); CHLORIDE 104 mmol/L (98-107); CREATININE 0.86 mg/dL (0.60-1.30); GLOMERULAR FILTR. RATE CALC > 60 mL/min (>60); GLUCOSE,RANDOM 150 mg/dL (70-110); POTASSIUM 3.9 mmol/L (3.5-5.1); SODIUM SERUM 140 mmol/L (136-145); THYROID STIMULATING HORMONE 4.68 uIU/mL (0.36-3.74); UREA NITROGEN, BLOOD 11 mg/dL (7-18)
[2024-07-18 20:06] LABS: GLUCOMETER DEV NAME(LOC) BV2X.3; GLUCOSE,POINT OF CARE 98 MG/DL (70-110)
[2024-07-18 20:06] LABS: GLUCOMETER DEV NAME(LOC) BV2X.3; GLUCOSE,POINT OF CARE 135 MG/DL (70-110)
[2024-07-18 20:21] VITALS: BP 137/75; PULSE 86; RESP 18; TEMP 98.3; O2SAT 97
[2024-07-18 20:51] LABS: GLUCOMETER DEV NAME(LOC) BV2X.3; GLUCOSE,POINT OF CARE 132 MG/DL (70-110)
[2024-07-19 06:25] LABS: GLUCOMETER DEV NAME(LOC) BV2X.3; GLUCOSE,POINT OF CARE 132 MG/DL (70-110)
[2024-07-19 08:16] VITALS: BP 119/66; PULSE 98; RESP 18; TEMP 98; O2SAT 96
[2024-07-19 11:31] LABS: GLUCOMETER DEV NAME(LOC) BV2X.3; GLUCOSE,POINT OF CARE 101 MG/DL (70-110)
[2024-07-19 17:01] LABS: GLUCOMETER DEV NAME(LOC) BV2X.3; GLUCOSE,POINT OF CARE 120 MG/DL (70-110)
[2024-07-19 20:29] VITALS: BP 134/74; PULSE 91; RESP 17; TEMP 98.8; O2SAT 96
[2024-07-19 20:40] LABS: GLUCOMETER DEV NAME(LOC) BV2X.3; GLUCOSE,POINT OF CARE 185 MG/DL (70-110)
[2024-07-20 06:06] LABS: GLUCOMETER DEV NAME(LOC) BV2X.3; GLUCOSE,POINT OF CARE 141 MG/DL (70-110)
[2024-07-20 08:11] VITALS: BP 126/62; PULSE 74; RESP 18; TEMP 97.5; O2SAT 95
[2024-07-20 11:41] LABS: GLUCOMETER DEV NAME(LOC) BV2X.3; GLUCOSE,POINT OF CARE 118 MG/DL (70-110)
[2024-07-20 16:36] LABS: GLUCOMETER DEV NAME(LOC) BV2X.3; GLUCOSE,POINT OF CARE 149 MG/DL (70-110)
[2024-07-20 20:10] VITALS: BP 132/82; PULSE 89; RESP 18; TEMP 98; O2SAT 96
[2024-07-20 20:35] LABS: GLUCOMETER DEV NAME(LOC) BV2X.3; GLUCOSE,POINT OF CARE 130 MG/DL (70-110)
[2024-07-21 06:30] LABS: GLUCOMETER DEV NAME(LOC) BV2X.3; GLUCOSE,POINT OF CARE 117 MG/DL (70-110)
[2024-07-21 08:24] VITALS: BP 131/60; PULSE 87; RESP 17; TEMP 97.9; O2SAT 95
[2024-07-21 17:40] LABS: GLUCOMETER DEV NAME(LOC) BV2X.3; GLUCOSE,POINT OF CARE 102 MG/DL (70-110)
[2024-07-21 17:40] LABS: GLUCOMETER DEV NAME(LOC) BV2X.3; GLUCOSE,POINT OF CARE 70 MG/DL (70-110)
[2024-07-21 20:35] VITALS: BP 130/78; PULSE 85; RESP 18; TEMP 97.2; O2SAT 97
[2024-07-21 21:20] LABS: GLUCOMETER DEV NAME(LOC) BV2X.3; GLUCOSE,POINT OF CARE 118 MG/DL (70-110)
[2024-07-22 07:15] LABS: GLUCOMETER DEV NAME(LOC) BV2X.3; GLUCOSE,POINT OF CARE 110 MG/DL (70-110)
[2024-07-22 08:34] VITALS: BP 137/73; PULSE 83; RESP 18; TEMP 98.6; O2SAT 95
[2024-07-22 11:30] LABS: GLUCOMETER DEV NAME(LOC) BV2X.3; GLUCOSE,POINT OF CARE 83 MG/DL (70-110)
[2024-07-22 12:30] VITALS: BP 153/69; PULSE 81; RESP 16; O2SAT 96
[2024-07-22 17:01] LABS: GLUCOMETER DEV NAME(LOC) BV2X.3; GLUCOSE,POINT OF CARE 146 MG/DL (70-110)
[2024-07-22 20:36] LABS: GLUCOMETER DEV NAME(LOC) BV2X.3; GLUCOSE,POINT OF CARE 113 MG/DL (70-110)
[2024-07-22 21:18] VITALS: BP 135/93; PULSE 75; RESP 18; TEMP 98; O2SAT 98
[2024-07-23 06:55] LABS: GLUCOMETER DEV NAME(LOC) BV2X.3; GLUCOSE,POINT OF CARE 138 MG/DL (70-110)
[2024-07-23 08:01] VITALS: BP 137/90; PULSE 79; RESP 16; TEMP 97.3; O2SAT 96
[2024-07-23 11:25] LABS: GLUCOMETER DEV NAME(LOC) BV2X.3; GLUCOSE,POINT OF CARE 88 MG/DL (70-110)
[2024-07-23 12:35] VITALS: BP 132/62; PULSE 76; RESP 16; O2SAT 98
[2024-07-23 16:25] LABS: GLUCOMETER DEV NAME(LOC) BV2X.3; GLUCOSE,POINT OF CARE 132 MG/DL (70-110)
[2024-07-23 20:00] VITALS: BP 143/57; PULSE 75; RESP 18; TEMP 98.5; O2SAT 95
[2024-07-23 20:56] VITALS: BP 143/60; PULSE 77; RESP 16; O2SAT 96
[2024-07-23 21:05] LABS: GLUCOMETER DEV NAME(LOC) BV2X.3; GLUCOSE,POINT OF CARE 130 MG/DL (70-110)
[2024-07-24 06:16] LABS: GLUCOMETER DEV NAME(LOC) BV2X.3; GLUCOSE,POINT OF CARE 129 MG/DL (70-110)
[2024-07-24 08:02] VITALS: BP 137/64; PULSE 80; RESP 16; TEMP 97.8; O2SAT 96
[2024-07-24] MEDS ORDERED: DENTURE ADHESIVE 68 GM CREAM DT PRN (11:30)
[2024-07-24 11:36] LABS: GLUCOMETER DEV NAME(LOC) BV2X.3; GLUCOSE,POINT OF CARE 121 MG/DL (70-110)
[2024-07-24 12:20] VITALS: BP 134/62; PULSE 72; RESP 16; O2SAT 96
[2024-07-24 17:55] LABS: GLUCOMETER DEV NAME(LOC) BV2X.3; GLUCOSE,POINT OF CARE 213 MG/DL (70-110)
[2024-07-24 20:26] VITALS: BP 144/64; PULSE 74; RESP 15; TEMP 98.3; O2SAT 95
[2024-07-24 20:30] LABS: GLUCOMETER DEV NAME(LOC) BV2X.3; GLUCOSE,POINT OF CARE 122 MG/DL (70-110)
[2024-07-25 06:21] LABS: GLUCOMETER DEV NAME(LOC) BV2X.3; GLUCOSE,POINT OF CARE 128 MG/DL (70-110)
[2024-07-25 08:08] VITALS: BP 130/70; PULSE 77; RESP 18; TEMP 96.6; O2SAT 97
[2024-07-25 11:26] LABS: GLUCOMETER DEV NAME(LOC) BV2X.3; GLUCOSE,POINT OF CARE 121 MG/DL (70-110)
[2024-07-25 16:35] LABS: GLUCOMETER DEV NAME(LOC) BV2X.3; GLUCOSE,POINT OF CARE 107 MG/DL (70-110)
[2024-07-25 20:50] LABS: GLUCOMETER DEV NAME(LOC) BV2X.3; GLUCOSE,POINT OF CARE 110 MG/DL (70-110)
[2024-07-25 22:06] VITALS: BP 146/67; PULSE 73; RESP 18; TEMP 96.6; O2SAT 96
[2024-07-26 06:11] LABS: GLUCOMETER DEV NAME(LOC) BV2X.3; GLUCOSE,POINT OF CARE 97 MG/DL (70-110)
[2024-07-26 08:32] VITALS: BP 141/65; PULSE 80; RESP 18; TEMP 97; O2SAT 97
[2024-07-26] MEDS ORDERED: TRAZ-257 PO (09:42)
[2024-07-26] MEDS ORDERED: TRAZ-283 PO (09:45)
== END 2024-07-26 10:15 | disposition home or self-care (01) | DRG 885 ==
LOC: B2X 22:12
PROVIDERS: ADMIT Psychiatry & Neurology Psychiatry; ATTEND Psychiatry & Neurology Psychiatry
PROC: GZHZZZZ Group Psychotherapy (ICD-10-PCS; principal; 2024-07-22)
PROC: GZ51ZZZ Individual Psychotherapy, Behavioral (ICD-10-PCS; 2024-07-22)
DX: F31.4 Bipolar disorder, current episode depressed, severe, without psychotic features (principal); N18.9 Chronic kidney disease, unspecified; E11.22 Type 2 diabetes mellitus with diabetic chronic kidney disease; I12.9 Hypertensive chronic kidney disease with stage 1 through stage 4 chronic kidney disease, or unspecified chronic kidney disease; E78.5 Hyperlipidemia, unspecified; E03.9 Hypothyroidism, unspecified; D64.9 Anemia, unspecified; E87.6 Hypokalemia; Z91.199 Patient's noncompliance with other medical treatment and regimen due to unspecified reason; F10.20 Alcohol dependence, uncomplicated; Y90.9 Presence of alcohol in blood, level not specified
CPT/HCPCS: 80048; 80053; 80061; 80307; 82043; 82271; 82570; 82962; 83036; 84132; 84436; 84439; 84443; 85025; 90686; 90732

== ENCOUNTER 2025-03-15 10:21 | Inpatient (IN) | payer MEDICARE, MEDICAID ==
[~2025-03-15] VITALS: Ht 167.6 cm; Wt 104.2 kg
[~2025-03-15 10:21] MED LIST changes: -AMLO-258 PO; -BUPR-344 PO; +TRAZ-283 PO
[2025-03-15 10:41] LABS: PLATELET COUNT (AUTO) 191 K/uL (150-450); RED BLOOD CELL COUNT(AUTO) 4.54 MIL/uL (4.50-5.90); RED CELL DISTRIBUTION WIDTH 16.1 % (11.5-14.5); WHITE BLOOD COUNT (AUTO) 4.7 K/uL (4.5-11.0)
[2025-03-15 10:50] LABS: CALCIUM, TOTAL 7.9 mg/dL (8.8-10.5); CREATININE 0.49 mg/dL (0.60-1.30); GLOMERULAR FILTR. RATE CALC > 60 mL/min (>60); GLUCOSE,RANDOM 179 mg/dL (70-110); SODIUM SERUM 139 mmol/L (136-145); UREA NITROGEN, BLOOD 8 mg/dL (7-18)
[2025-03-15 11:42] LABS: COVID AG,FIA SOURCE NASAL SWAB
[2025-03-15 12:28] LABS: SARS-COV2 (COVID) ANTIGEN,FIA Negative (Negative)
[2025-03-15 17:10] VITALS: BP 148/96; PULSE 80; RESP 18; TEMP 97.7; O2SAT 96
[2025-03-15 21:35] VITALS: RESP 18; TEMP 97.7
[2025-03-16 07:37] LABS: PLATELET COUNT (AUTO) 176 K/uL (150-450); RED BLOOD CELL COUNT(AUTO) 4.46 MIL/uL (4.50-5.90); RED CELL DISTRIBUTION WIDTH 15.7 % (11.5-14.5); WHITE BLOOD COUNT (AUTO) 6.6 K/uL (4.5-11.0)
[2025-03-16 08:36] VITALS: BP 188/92; PULSE 75; RESP 17; TEMP 98.5; O2SAT 98
[2025-03-16] MEDS ORDERED: DOCUSATE SODIUM 100 MG CAPSULE PO PRN (09:45)
[2025-03-16] MEDS ORDERED: ONDANSETRON 4 MG TABLET PO PRN (09:45)
[2025-03-16] MEDS ORDERED: DEXTROSE 50%-WATER 25 GM/50 ML SYRINGE IVP PRN (09:45)
[2025-03-16] MEDS ORDERED: ACETAMINOPHEN 325 MG TABLET PO PRN (09:45)
[2025-03-16] MEDS ORDERED: IBUPROFEN 600 MG TABLET PO PRN (09:45)
[2025-03-16] MEDS ORDERED: PETROLATUM,WHITE 28 GM JELLY TP PRN (09:45)
[2025-03-16] MEDS ORDERED: ALBUTEROL SULFATE HFA 90 MCG/PUFF 8 GM INHALER IH PRN (09:45)
[2025-03-16] MEDS ORDERED: OMEPRAZOLE 20 MG CAPSULE PO PRN (09:45)
[2025-03-16] MEDS ORDERED: BACITRACIN 28 GM OINTMENT TP PRN (09:45)
[2025-03-16] MEDS ORDERED: BENZOCAINE/MENTHOL [CEPACOL] LOZENGE PO PRN (09:45)
[2025-03-16] MEDS ORDERED: LOPERAMIDE HCL 2 MG CAPSULE PO PRN (09:45)
[2025-03-16] MEDS ORDERED: MAG HYDROX/ALUMINUM HYD/SIMETH ES 30 ML SUSPENSION UDCUP PO PRN (09:45)
[2025-03-16] MEDS: ASPIRIN 81 MG CHEWABLE TABLET PO SCH (10:42)
[2025-03-16] MEDS: LEVOTHYROXINE SODIUM 25 MCG TABLET PO SCH (10:42)
[2025-03-16] MEDS: INSULIN LISPRO 100 UNITS/ML SQ PRN (11:27)
[2025-03-16 11:30] LABS: GLUCOMETER DEV NAME(LOC) 3E.I 2; GLUCOSE,POINT OF CARE 203 MG/DL (70-110)
[2025-03-16 14:16] LABS: ASPARTATE AMINOTRANSFERASE 21 U/L (15-37); CALCIUM, TOTAL 7.8 mg/dL (8.8-10.5); CHOL/HDL RATIO 2.8 (4.2-7.3); CREATININE 0.73 mg/dL (0.60-1.30); GLOMERULAR FILTR. RATE CALC > 60 mL/min (>60); GLUCOSE,RANDOM 164 mg/dL (70-110); LDL CHOL (CALC.) 112 mg/dL (0-130); SODIUM SERUM 140 mmol/L (136-145); TOTAL PROTEIN, SERUM 6.1 g/dL (6.4-8.2); UREA NITROGEN, BLOOD 11 mg/dL (7-18)
[2025-03-16] MEDS: FERROUS SULFATE 325 MG EC TABLET PO SCH (16:43)
[2025-03-16 17:15] LABS: GLUCOMETER DEV NAME(LOC) 3E.I 2; GLUCOSE,POINT OF CARE 174 MG/DL (70-110)
[2025-03-16 20:16] LABS: GLUCOMETER DEV NAME(LOC) 3E.I 2; GLUCOSE,POINT OF CARE 160 MG/DL (70-110)
[2025-03-16] MEDS: ATORVASTATIN CALCIUM 20 MG TABLET PO SCH (21:03)
[2025-03-16] MEDS: ZOLPIDEM TARTRATE 10 MG TABLET PO PRN (21:31)
[2025-03-17 06:15] LABS: GLUCOMETER DEV NAME(LOC) 3E.I 2; GLUCOSE,POINT OF CARE 145 MG/DL (70-110)
[2025-03-17] MEDS: TraZODone HCL 150 MG TABLET PO SCH (08:14)
[2025-03-17] MEDS: MULTIVITAMINS WITH MINERALS, THERAPEUTIC TABLET PO SCH (08:15)
[2025-03-17] MEDS: THIAMINE 100 MG TABLET PO SCH (08:15)
[2025-03-17] MEDS: FOLIC ACID 1 MG TABLET PO SCH (08:15)
[2025-03-17 11:46] LABS: GLUCOMETER DEV NAME(LOC) 3E.I 2; GLUCOSE,POINT OF CARE 179 MG/DL (70-110)
[2025-03-17 12:24] VITALS: BP 176/81; PULSE 82; RESP 18; TEMP 97.4; O2SAT 100
[2025-03-17 17:26] LABS: GLUCOMETER DEV NAME(LOC) 3E.I 2; GLUCOSE,POINT OF CARE 147 MG/DL (70-110)
[2025-03-17 20:06] LABS: GLUCOMETER DEV NAME(LOC) 3E.I 2; GLUCOSE,POINT OF CARE 151 MG/DL (70-110)
[2025-03-17 20:45] VITALS: BP 175/94; RESP 18; O2SAT 97
[2025-03-18 05:25] LABS: GLUCOMETER DEV NAME(LOC) 3E.I 2; GLUCOSE,POINT OF CARE 148 MG/DL (70-110)
[2025-03-18 11:41] LABS: GLUCOMETER DEV NAME(LOC) 3E.I 2; GLUCOSE,POINT OF CARE 122 MG/DL (70-110)
[2025-03-18] MEDS: DENTURE ADHESIVE 68 GM CREAM DT PRN (12:08)
[2025-03-18 15:13] VITALS: BP 149/80; PULSE 77; RESP 18; TEMP 97.8; O2SAT 98
[2025-03-18 18:10] LABS: GLUCOMETER DEV NAME(LOC) 3E.I 2; GLUCOSE,POINT OF CARE 153 MG/DL (70-110)
[2025-03-18 20:32] VITALS: BP 164/67; PULSE 69; RESP 18; TEMP 97.8; O2SAT 97
[2025-03-18] MEDS ORDERED: TraZODone HCL 150 MG TABLET PO SCH (21:00)
[2025-03-18 21:41] LABS: GLUCOMETER DEV NAME(LOC) 3E.I 2; GLUCOSE,POINT OF CARE 165 MG/DL (70-110)
[2025-03-19 05:56] LABS: GLUCOMETER DEV NAME(LOC) 3E.I 2; GLUCOSE,POINT OF CARE 133 MG/DL (70-110)
[2025-03-19 10:39] VITALS: BP 165/79; PULSE 68; RESP 18; TEMP 97.6; O2SAT 97
[2025-03-19 11:31] LABS: GLUCOMETER DEV NAME(LOC) 3E.I 2; GLUCOSE,POINT OF CARE 155 MG/DL (70-110)
[2025-03-19 17:36] LABS: GLUCOMETER DEV NAME(LOC) 3E.I 2; GLUCOSE,POINT OF CARE 187 MG/DL (70-110)
[2025-03-19 20:08] VITALS: BP 156/79; PULSE 71; RESP 18; TEMP 98.1; O2SAT 98
[2025-03-19 20:31] LABS: GLUCOMETER DEV NAME(LOC) 3E.I 2; GLUCOSE,POINT OF CARE 135 MG/DL (70-110)
[2025-03-19] MEDS: TraZODone HCL 150 MG TABLET PO SCH (22:13)
[2025-03-20 05:56] LABS: GLUCOMETER DEV NAME(LOC) 3E.I 2; GLUCOSE,POINT OF CARE 136 MG/DL (70-110)
[2025-03-20 08:17] VITALS: BP 156/71; PULSE 72; RESP 18; TEMP 97.5; O2SAT 99
[2025-03-20 11:36] LABS: GLUCOMETER DEV NAME(LOC) 3E.I 2; GLUCOSE,POINT OF CARE 114 MG/DL (70-110)
[2025-03-20 16:41] LABS: GLUCOMETER DEV NAME(LOC) 3E.I 2; GLUCOSE,POINT OF CARE 122 MG/DL (70-110)
[2025-03-20 20:09] VITALS: BP 170/75; PULSE 92; RESP 18; TEMP 96.9; O2SAT 100
[2025-03-20 20:15] LABS: GLUCOMETER DEV NAME(LOC) 3E.I 2; GLUCOSE,POINT OF CARE 125 MG/DL (70-110)
[2025-03-21 06:36] LABS: GLUCOMETER DEV NAME(LOC) 3E.I 2; GLUCOSE,POINT OF CARE 120 MG/DL (70-110)
[2025-03-21 08:52] VITALS: BP 147/61; PULSE 70; RESP 17; TEMP 97.9; O2SAT 98
[2025-03-21 12:01] LABS: GLUCOMETER DEV NAME(LOC) 3E.I 2; GLUCOSE,POINT OF CARE 156 MG/DL (70-110)
[2025-03-21 12:30] VITALS: BP 154/67; PULSE 77; RESP 18; O2SAT 98
[2025-03-21 17:51] LABS: GLUCOMETER DEV NAME(LOC) 3E.I 2; GLUCOSE,POINT OF CARE 139 MG/DL (70-110)
[2025-03-21 20:14] VITALS: BP 182/78; PULSE 65; RESP 16; TEMP 98.2; O2SAT 61
[2025-03-21 22:01] LABS: GLUCOMETER DEV NAME(LOC) 3E.I 2; GLUCOSE,POINT OF CARE 135 MG/DL (70-110)
[2025-03-22 06:36] LABS: GLUCOMETER DEV NAME(LOC) 3E.I 2; GLUCOSE,POINT OF CARE 116 MG/DL (70-110)
[2025-03-22 08:45] VITALS: BP 166/71; PULSE 67; RESP 17; TEMP 97.3; O2SAT 98
[2025-03-22 11:50] LABS: GLUCOMETER DEV NAME(LOC) 3E.I 2; GLUCOSE,POINT OF CARE 146 MG/DL (70-110)
[2025-03-22 12:30] VITALS: BP 148/71; PULSE 68; RESP 18
[2025-03-22 16:55] LABS: GLUCOMETER DEV NAME(LOC) 3E.I 2; GLUCOSE,POINT OF CARE 111 MG/DL (70-110)
[2025-03-22 20:08] VITALS: BP 152/95; PULSE 70; RESP 18; TEMP 97.4; O2SAT 96
[2025-03-22 20:31] LABS: GLUCOMETER DEV NAME(LOC) 3E.I 2; GLUCOSE,POINT OF CARE 167 MG/DL (70-110)
[2025-03-23 06:20] LABS: GLUCOMETER DEV NAME(LOC) 3E.I 2; GLUCOSE,POINT OF CARE 106 MG/DL (70-110)
[2025-03-23 11:41] LABS: GLUCOMETER DEV NAME(LOC) 3E.I 2; GLUCOSE,POINT OF CARE 116 MG/DL (70-110)
[2025-03-23 16:35] VITALS: BP 191/77; PULSE 66; RESP 18; O2SAT 97
[2025-03-23 17:21] LABS: GLUCOMETER DEV NAME(LOC) 3E.I 2; GLUCOSE,POINT OF CARE 134 MG/DL (70-110)
[2025-03-23 17:56] VITALS: BP 155/69; PULSE 64; RESP 18; O2SAT 98
[2025-03-23 20:00] VITALS: BP 160/70; PULSE 70; RESP 18; TEMP 97.5; O2SAT 99
[2025-03-23 20:01] LABS: GLUCOMETER DEV NAME(LOC) 3E.I 2; GLUCOSE,POINT OF CARE 121 MG/DL (70-110)
[2025-03-24 06:21] LABS: GLUCOMETER DEV NAME(LOC) 3E.I 2; GLUCOSE,POINT OF CARE 120 MG/DL (70-110)
[2025-03-24 09:12] VITALS: BP 169/81; PULSE 62; RESP 18; TEMP 97.2; O2SAT 98
[2025-03-24 11:41] LABS: GLUCOMETER DEV NAME(LOC) 3E.I 2; GLUCOSE,POINT OF CARE 153 MG/DL (70-110)
[2025-03-24] MEDS: MAGNESIUM HYDROXIDE SUSPENSION 30 ML UDCUP PO PRN (14:54)
[2025-03-24 17:20] LABS: GLUCOMETER DEV NAME(LOC) 3E.I 2; GLUCOSE,POINT OF CARE 84 MG/DL (70-110)
[2025-03-24 20:27] VITALS: BP 199/82; PULSE 58; RESP 18; TEMP 96.8; O2SAT 98
[2025-03-24 20:40] LABS: GLUCOMETER DEV NAME(LOC) 3E.I 2; GLUCOSE,POINT OF CARE 156 MG/DL (70-110)
[2025-03-24 21:37] VITALS: BP 142/69; PULSE 63
[2025-03-25 06:16] LABS: GLUCOMETER DEV NAME(LOC) 3E.I 2; GLUCOSE,POINT OF CARE 146 MG/DL (70-110)
[2025-03-25 11:31] LABS: GLUCOMETER DEV NAME(LOC) 3E.I 2; GLUCOSE,POINT OF CARE 146 MG/DL (70-110)
[2025-03-25 12:37] VITALS: BP 145/63; PULSE 78; RESP 18; TEMP 98; O2SAT 100
[2025-03-25 17:06] LABS: GLUCOMETER DEV NAME(LOC) 3E.I 2; GLUCOSE,POINT OF CARE 116 MG/DL (70-110)
[2025-03-25 20:11] VITALS: BP 161/70; RESP 19; TEMP 97.9; O2SAT 98
[2025-03-25 20:51] LABS: GLUCOMETER DEV NAME(LOC) 3E.I 2; GLUCOSE,POINT OF CARE 94 MG/DL (70-110)
[2025-03-26 06:25] LABS: GLUCOMETER DEV NAME(LOC) 3E.I 2; GLUCOSE,POINT OF CARE 118 MG/DL (70-110)
[2025-03-26 08:24] VITALS: BP 158/67; PULSE 61; RESP 17; TEMP 97.7; O2SAT 96
[2025-03-26 12:12] VITALS: BP 142/66; PULSE 62; RESP 18
[2025-03-26 12:21] LABS: GLUCOMETER DEV NAME(LOC) 3E.I 2; GLUCOSE,POINT OF CARE 111 MG/DL (70-110)
[2025-03-26 17:45] LABS: GLUCOMETER DEV NAME(LOC) 3E.I 2; GLUCOSE,POINT OF CARE 118 MG/DL (70-110)
[2025-03-26 20:06] LABS: GLUCOMETER DEV NAME(LOC) 3E.I 2; GLUCOSE,POINT OF CARE 109 MG/DL (70-110)
[2025-03-26 20:42] VITALS: BP 160/68; PULSE 65; RESP 18; TEMP 97; O2SAT 98
[2025-03-27 05:56] LABS: GLUCOMETER DEV NAME(LOC) 3E.I 2; GLUCOSE,POINT OF CARE 108 MG/DL (70-110)
[2025-03-27 09:21] VITALS: BP 162/76; PULSE 72; RESP 18; TEMP 97.6; O2SAT 95
[2025-03-27 12:05] LABS: GLUCOMETER DEV NAME(LOC) 3E.I 2; GLUCOSE,POINT OF CARE 151 MG/DL (70-110)
[2025-03-27] MEDS ORDERED: QUET300T2 PO (13:34)
[2025-03-27] MEDS ORDERED: TRAZ150T80 PO (13:34)
[2025-03-27 17:25] LABS: GLUCOMETER DEV NAME(LOC) 3E.I 2; GLUCOSE,POINT OF CARE 112 MG/DL (70-110)
[2025-03-27 20:16] LABS: GLUCOMETER DEV NAME(LOC) 3E.I 2; GLUCOSE,POINT OF CARE 134 MG/DL (70-110)
[2025-03-27 20:49] VITALS: BP 134/69; PULSE 80; RESP 18; TEMP 98.7; O2SAT 97
[2025-03-28 05:41] LABS: GLUCOMETER DEV NAME(LOC) 3E.I 2; GLUCOSE,POINT OF CARE 113 MG/DL (70-110)
[2025-03-28 08:37] VITALS: BP 164/82; PULSE 63; RESP 18; TEMP 97.6; O2SAT 97
[2025-03-28] MEDS ORDERED: LISI-894 PO (10:06)
== END 2025-03-28 11:24 | disposition home or self-care (01) | DRG 885 ==
LOC: EMS 10:23 → 3EX 16:17
PROVIDERS: ADMIT Psychiatry & Neurology Psychiatry; ATTEND Psychiatry & Neurology Psychiatry
DX: F25.9 Schizoaffective disorder, unspecified (principal); E11.65 Type 2 diabetes mellitus with hyperglycemia; R45.851 Suicidal ideations; D64.9 Anemia, unspecified; E03.9 Hypothyroidism, unspecified; E66.9 Obesity, unspecified; F10.20 Alcohol dependence, uncomplicated; F41.9 Anxiety disorder, unspecified; I10 Essential (primary) hypertension; G47.00 Insomnia, unspecified; K21.9 Gastro-esophageal reflux disease without esophagitis; Y90.8 Blood alcohol level of 240 mg/100 ml or more; K59.00 Constipation, unspecified; F14.90 Cocaine use, unspecified, uncomplicated; Z79.82 Long term (current) use of aspirin; Z20.822 Contact with and (suspected) exposure to COVID-19; Z68.37 Body mass index [BMI] 37.0-37.9, adult; Z79.899 Other long term (current) drug therapy; M19.90 Unspecified osteoarthritis, unspecified site
CPT/HCPCS: 80048; 80053; 80061; 82271; 82962; 83036; 84436; 84439; 85025; 99285; G0378; G0480